=== PATIENT | female | born 1960 | race African-American/Black ===

== ENCOUNTER 2019-01-08 20:40 | Inpatient (IN) | payer MEDICAID ==
[~2019-01-08] VITALS: Ht 175.3 cm; Wt 138.3 kg
[~2019-01-08 20:40] MED LIST: BISA-81 PO; CLON0.1T PO
[2019-01-08] MEDS ORDERED: PANTOPRAZOLE SODIUM 40 MG/VIAL IV NR (23:15)
[2019-01-08 23:17] LABS: CHLORIDE 88 mEq/L (98-107)
[2019-01-08 23:21] LABS: INR 2.3; PROTHROMBIN TIME 22.9 sec (9.1-11.1)
[2019-01-08 23:59] LABS: MEAN CORPUSCULAR HEMOGLOBIN 22.2 pg (28.0-32.0); MEAN CORPUSCULAR VOLUME 79.7 fL (81.0-99.0); MEAN PLATELET VOLUME 8.1 fl (7.4-10.4); PLATELET 293 x1000/uL (130-400); RED BLOOD CELL COUNT 1.37 mill/uL (4.2-5.4); RED CELL DISTRIBUTION WIDTH 20.8 % (11.6-14.6)
[2019-01-09] VITALS (24 sets, daily range): BP systolic 97–118; BP diastolic 36–78
[2019-01-09 00:16] LABS: HEMATOCRIT. 10.9 % (36.0-48.0); HEMOGLOBIN. 3.1 g/dL (12.0-16.0)
[2019-01-09] MEDS ORDERED: DIPHENHYDRAMINE 50MG/ML VIAL IV PRN (11:45)
[2019-01-09 13:21] LABS: NUCLEATED RED BLOOD CELLS 4 /100 WBC; PLATELET ESTIMATE NORMAL
[2019-01-09] MEDS ORDERED: LIDOCAINE HCL/PF 1% 10 MG/ML 5ML VIAL ONE (13:39)
[2019-01-09] MEDS ORDERED: MIDAZOLAM HCL 2 MG/2 ML VIAL ONE (13:39)
[2019-01-09] MEDS ORDERED: PROPOFOL 200MG/20ML VIAL IV ONE ×2 (13:39→13:40)
[2019-01-09] MEDS ORDERED: ALBUTEROL 6.7GM HFA INHALER ORI ONE (14:36)
[2019-01-09] MEDS ORDERED: ALBUTEROL 90MCG/PUFF 17GM INHALER INH ONE (14:42)
[2019-01-09] MEDS ORDERED: KETAMINE HCL 50 MG/ML 10ML ONE (15:07)
[2019-01-09] MEDS ORDERED: ONDANSETRON HCL 4MG/2ML INJ IV PRN (16:15)
[2019-01-09] MEDS ORDERED: IPRATROPIUM/ALBUTEROL 0.5-3(2.5)MG/3ML NEB HHN PRN (16:15)
[2019-01-09] MEDS ORDERED: SORBITOL 70% SOLN 30ML PO NR ×2 (16:45→21:30)
[2019-01-09] MEDS ORDERED: BISACODYL 5MG TABLET PO NR ×2 (16:45→21:30)
[2019-01-09] MEDS ORDERED: METOCLOPRAMIDE HCL 10MG/2ML VIAL IV NR ×2 (16:45→21:30)
[2019-01-09] MEDS: PANTOPRAZOLE SODIUM 40 MG/VIAL IV SCH (17:33)
[2019-01-09] MEDS ORDERED: DEXTROSE 50% WATER 50ML SYRINGE IV PRN (19:15)
[2019-01-09 19:53] LABS: PHOSPHORUS 4.3 mg/dL (2.5-4.9)
[2019-01-09 20:20] LABS: HEMATOCRIT 18.3 % (36.0-48.0); HEMOGLOBIN 5.7 g/dL (12.0-16.0)
[2019-01-09] MEDS: INSULIN LISPRO 100 UNITS/ML SUBCUT SCH (21:00)
[2019-01-09] MEDS: BLOOD SUGAR DIAGNOSTIC STRIP TEST SCH (21:31)
[2019-01-10] VITALS (33 sets, daily range): BP systolic 97–143; BP diastolic 16–88
[2019-01-10] MEDS ORDERED: SORBITOL 70% SOLN 30ML PO NR (01:30)
[2019-01-10] MEDS ORDERED: BISACODYL 5MG TABLET PO NR (01:30)
[2019-01-10] MEDS ORDERED: METOCLOPRAMIDE HCL 10MG/2ML VIAL IV NR (01:30)
[2019-01-10] MEDS: ONDANSETRON HCL 4MG/2ML INJ IV PRN (03:06)
[2019-01-10] MEDS: BLOOD SUGAR DIAGNOSTIC STRIP TEST SCH (06:23)
[2019-01-10] MEDS: INSULIN LISPRO 100 UNITS/ML SUBCUT SCH (07:20)
[2019-01-10] MEDS: PANTOPRAZOLE SODIUM 40 MG/VIAL IV SCH ×2 (08:16→16:28)
[2019-01-10 09:13] LABS: HEMATOCRIT. 21.8 % (36.0-48.0); MEAN CORPUSCULAR HEMOGLOBIN 25.9 pg (28.0-32.0); MEAN CORPUSCULAR VOLUME 82.6 fL (81.0-99.0); PLATELET 213 x1000/uL (130-400); RED BLOOD CELL COUNT 2.64 mill/uL (4.2-5.4); RED CELL DISTRIBUTION WIDTH 17.6 % (11.6-14.6)
[2019-01-10 09:18] LABS: CHLORIDE 96 mEq/L (98-107); HEMOGLOBIN. 6.8 g/dL (12.0-16.0)
[2019-01-10 09:25] LABS: LDL CHOLESTEROL 58 mg/dL (5-100)
[2019-01-10 09:27] LABS: HDL CHOLESTEROL 32 mg/dL (40-59)
[2019-01-10 09:45] LABS: BG BASE EXCESS 7.1 mmol/L (-2.0-2.0); BG CARBOXYHEMOGLOBIN 2.2 % (0.5-1.5); BG HCO3 ACT 34.2 mmol/L (22.0-26.0); BG METHEMOGLOBIN 0.4 % (0.0-1.5); BG OXYGEN SATURATION 97.9 % (92.0-98.5); BG OXYHEMOGLOBIN 95.4 % (94.0-97.0); BG PCO2 67.8 mmHg (35.0-45.0); BG PH 7.321 (7.350-7.450); BG PO2 114.7 mmHg (75.0-100.0); BG SAMPLE SITE RIGHT RADIAL; BG TOTAL HEMOGLOBIN 7.8 g/dL (12.0-18.0); BG VENT MODE MASK - SIMPLE
[2019-01-10] MEDS ORDERED: POTASSIUM CHLORIDE 20MEQ TABLET SR PO SCH (10:00)
[2019-01-10] MEDS ORDERED: METOCLOPRAMIDE HCL 10MG/2ML VIAL IV SCH (10:00)
[2019-01-10] MEDS ORDERED: BISACODYL 5MG TABLET PO SCH (10:00)
[2019-01-10] MEDS ORDERED: IPRATROPIUM/ALBUTEROL 0.5-3(2.5)MG/3ML NEB HHN PRN (10:15)
[2019-01-10] MEDS: FUROSEMIDE 40MG/4ML VIAL IVP SCH (10:43)
[2019-01-10] MEDS: SORBITOL 70% SOLN 30ML PO SCH ×3 (10:43→22:03)
[2019-01-10 12:07] LABS: INR 1.3; PARTIAL THROMBOPLASTIN TIME 29.2 sec (23.4-31.0); PROTHROMBIN TIME 13.4 sec (9.1-11.1)
[2019-01-10 12:12] LABS: HEMATOCRIT 22.2 % (36.0-48.0)
[2019-01-10] MEDS ORDERED: SODIUM BICARBONATE 4% (2.4MEQ) 5ML VIAL IV ONE (14:38)
[2019-01-10] MEDS ORDERED: LIDOCAINE HCL 1% 20ML VIAL (Pyxis) INJ ONE (14:38)
[2019-01-10] MEDS ORDERED: IOHEXOL-300 50 ML BOTTLE IV ONE (14:38)
[2019-01-10] MEDS ORDERED: IOHEXOL-300 100 ML BOTTLE ONE (14:39)
[2019-01-10] MEDS ORDERED: CLINDAMYCIN 600 MG in DEXTROSE 5% WATER 50 ML IV SCH (14:45)
[2019-01-10] MEDS ORDERED: CLINDAMYCIN 600 MG in SODIUM CHLORIDE 0.9% 50 ML IV ONE (14:45)
[2019-01-10] MEDS: METOCLOPRAMIDE HCL 10MG/2ML VIAL IV SCH ×2 (16:29→20:49)
[2019-01-10] MEDS: BISACODYL 5MG TABLET PO SCH ×2 (16:29→20:49)
[2019-01-10 20:44] LABS: CHLORIDE 97 mEq/L (98-107)
[2019-01-10 21:07] LABS: BASOPHILS % 0.2 % (0.0-2.0); HEMOGLOBIN. 8.1 g/dL (12.0-16.0); LYMPHOCYTES % 8.9 % (20.0-50.0); MEAN CORPUSCULAR HEMOGLOBIN 26.1 pg (28.0-32.0); MEAN CORPUSCULAR VOLUME 83.7 fL (81.0-99.0); MEAN PLATELET VOLUME 8.8 fl (7.4-10.4); MONOCYTES % 9.7 % (2.0-8.0); NEUTROPHILS % 81.2 % (40.0-76.0); PLATELET 240 x1000/uL (130-400); RED CELL DISTRIBUTION WIDTH 17.6 % (11.6-14.6)
[2019-01-10] MEDS ORDERED: POTASSIUM CHLORIDE 20MEQ TABLET SR PO NR (22:00)
[2019-01-10] MEDS ORDERED: ACETAMINOPHEN 325MG TABLET PO PRN (22:00)
[2019-01-10] MEDS: MORPHINE SULFATE 4 MG/ML CPJ (NOT FOR IM USE) IV PRN ×2 (22:25→23:32)
[2019-01-10] MEDS ORDERED: KCL 20MEQ/100ML PREMIX 100 ML IV SCH (23:00)
[2019-01-11] VITALS (12 sets, daily range): BP systolic 99–147; BP diastolic 56–91
[2019-01-11] MEDS: IPRATROPIUM/ALBUTEROL 0.5-3(2.5)MG/3ML NEB INH PRN ×3 (00:23→07:53)
[2019-01-11] MEDS ORDERED: POTASSIUM CHLORIDE 20MEQ TABLET SR PO NR (01:45)
[2019-01-11 04:36] LABS: HEMOGLOBIN. 8.8 g/dL (12.0-16.0); MEAN CORPUSCULAR HEMOGLOBIN 26.6 pg (28.0-32.0); MEAN CORPUSCULAR VOLUME 84.7 fL (81.0-99.0); MEAN PLATELET VOLUME 8.3 fl (7.4-10.4); PLATELET 207 x1000/uL (130-400); RED CELL DISTRIBUTION WIDTH 17.7 % (11.6-14.6)
[2019-01-11 04:38] LABS: CHLORIDE 97 mEq/L (98-107)
[2019-01-11 05:07] LABS: INR 1.2; PARTIAL THROMBOPLASTIN TIME 27.3 sec (23.4-31.0); PROTHROMBIN TIME 12.3 sec (9.1-11.1)
[2019-01-11 07:09] LABS: BG BASE EXCESS 6.4 mmol/L (-2.0-2.0); BG CARBOXYHEMOGLOBIN 1.3 % (0.5-1.5); BG DEOXYHEMOGLOBIN 1.7 % (0.0-5.0); BG HCO3 ACT 33.8 mmol/L (22.0-26.0); BG METHEMOGLOBIN 0.1 % (0.0-1.5); BG OXYGEN SATURATION 98.3 % (92.0-98.5); BG OXYHEMOGLOBIN 96.9 % (94.0-97.0); BG PCO2 67.4 mmHg (35.0-45.0); BG PH 7.318 (7.350-7.450); BG PO2 115.7 mmHg (75.0-100.0); BG SAMPLE SITE RIGHT RADIAL; BG TOTAL HEMOGLOBIN 8.7 g/dL (12.0-18.0); BG VENT MODE MASK - CPAP
[2019-01-11] MEDS: FUROSEMIDE 40MG/4ML VIAL IVP SCH ×2 (08:46→17:29)
[2019-01-11] MEDS: PANTOPRAZOLE SODIUM 40 MG/VIAL IV SCH ×2 (08:46→17:29)
[2019-01-11 10:05] LABS: NUCLEATED RED BLOOD CELLS 3 /100 WBC; PLATELET ESTIMATE NORMAL
[2019-01-11 11:07] LABS: T4 FREE 1.16 ng/dL (0.76-1.46)
[2019-01-11] MEDS ORDERED: SIMETHICONE 40 MG/0.6 ML 30ML ONE (11:47)
[2019-01-11] MEDS ORDERED: POTASSIUM CHLORIDE 20MEQ TABLET SR PO SCH (12:15)
[2019-01-11] MEDS ORDERED: LIDOCAINE HCL/PF 1% 10 MG/ML 5ML VIAL ONE (12:43)
[2019-01-11] MEDS ORDERED: PROPOFOL 200MG/20ML VIAL IV ONE ×3 (12:43→14:11)
[2019-01-11] MEDS ORDERED: ETOMIDATE 2MG/ML 10ML VIAL IV ONE (12:48)
[2019-01-11] MEDS: MORPHINE SULFATE 4 MG/ML CPJ (NOT FOR IM USE) IV PRN (15:29)
[2019-01-11 16:32] LABS: *COCAINE SCREEN URINE NEGATIVE (NEGATIVE); METHADONE URINE SCREEN NEGATIVE (NEGATIVE); OPIATES URINE SCREEN PRESUMTIVE POSITIVE (NEGATIVE)
[2019-01-11 16:33] LABS: *AMPHETAMINES SCREEN URINE NEGATIVE (NEGATIVE); *BARBITURATES SCREEN URINE NEGATIVE (NEGATIVE); *BENZODIAZEPINES SCREEN URINE PRESUMTIVE POSITIVE (NEGATIVE); CANNABINOID URINE SCREEN NEGATIVE (NEGATIVE); PHENCYCLIDINE URINE SCREEN NEGATIVE (NEGATIVE)
[2019-01-11 17:03] LABS: CREATINE KINASE MB FRACTION 1.1 ng/mL (0.5-3.6)
[2019-01-11 17:30] LABS: NUCLEATED RED BLOOD CELLS 2 /100 WBC; PLATELET ESTIMATE NORMAL
[2019-01-12] VITALS (11 sets, daily range): BP systolic 112–147; BP diastolic 59–88
[2019-01-12] MEDS: IPRATROPIUM/ALBUTEROL 0.5-3(2.5)MG/3ML NEB INH PRN (00:29)
[2019-01-12] MEDS: MORPHINE SULFATE 4 MG/ML CPJ (NOT FOR IM USE) IV PRN ×4 (06:17→23:36)
[2019-01-12 07:00] LABS: BASOPHILS % 0.3 % (0.0-2.0); EOSINOPHILS % 0.1 % (0.0-5.0); HEMATOCRIT. 25.1 % (36.0-48.0); HEMOGLOBIN. 7.7 g/dL (12.0-16.0); LYMPHOCYTES % 8.3 % (20.0-50.0); MEAN CORPUSCULAR HEMOGLOBIN 26.3 pg (28.0-32.0); MEAN PLATELET VOLUME 8.1 fl (7.4-10.4); MONOCYTES % 10.6 % (2.0-8.0); NEUTROPHILS % 80.7 % (40.0-76.0); PLATELET 183 x1000/uL (130-400); RED BLOOD CELL COUNT 2.92 mill/uL (4.2-5.4); RED CELL DISTRIBUTION WIDTH 18.2 % (11.6-14.6)
[2019-01-12 07:10] LABS: CHLORIDE 97 mEq/L (98-107)
[2019-01-12 07:23] LABS: CREATINE KINASE 54 IU/L (26-192)
[2019-01-12 07:26] LABS: CREATINE KINASE MB FRACTION < 1.0 ng/mL (0.5-3.6)
[2019-01-12] MEDS: PANTOPRAZOLE SODIUM 40 MG/VIAL IV SCH ×2 (08:14→16:51)
[2019-01-12] MEDS: FUROSEMIDE 40MG/4ML VIAL IVP SCH ×2 (08:14→16:51)
[2019-01-12] MEDS ORDERED: DEXTROSE 50% WATER 50ML SYRINGE IV PRN (10:00)
[2019-01-12] MEDS ORDERED: IOHEXOL-350 100 ML BOTTLE ONE (10:41)
[2019-01-12] MEDS ORDERED: BARIUM SULFATE(VOLUMEN) 450 ML ORAL.SUSP ONE (10:41)
[2019-01-12] MEDS: BLOOD SUGAR DIAGNOSTIC STRIP TEST SCH ×3 (11:25→21:29)
[2019-01-12] MEDS ORDERED: POTASSIUM CHLORIDE 20MEQ TABLET SR PO NR (12:00)
[2019-01-12] MEDS: INSULIN LISPRO 100 UNITS/ML SUBCUT SCH ×3 (12:20→21:00)
[2019-01-12] MEDS: NYSTATIN POWDER 15GM TOP SCH ×2 (14:38→16:54)
[2019-01-12 19:16] LABS: HAPTOGLOBIN 119 mg/dL (30-200)
[2019-01-13] VITALS (9 sets, daily range): BP systolic 103–126; BP diastolic 53–80
[2019-01-13] MEDS: BLOOD SUGAR DIAGNOSTIC STRIP TEST SCH ×2 (06:54→11:34)
[2019-01-13] MEDS: FUROSEMIDE 40MG/4ML VIAL IVP SCH (07:01)
[2019-01-13] MEDS: INSULIN LISPRO 100 UNITS/ML SUBCUT SCH ×2 (07:20→11:34)
[2019-01-13 07:58] LABS: HEMATOCRIT. 24.9 % (36.0-48.0); HEMOGLOBIN. 7.7 g/dL (12.0-16.0); MEAN CORPUSCULAR HEMOGLOBIN 26.6 pg (28.0-32.0); MEAN CORPUSCULAR VOLUME 85.9 fL (81.0-99.0); MEAN PLATELET VOLUME 7.9 fl (7.4-10.4); PLATELET 170 x1000/uL (130-400); RED CELL DISTRIBUTION WIDTH 18.7 % (11.6-14.6)
[2019-01-13 08:05] LABS: CHLORIDE 93 mEq/L (98-107)
[2019-01-13] MEDS: ONDANSETRON HCL 4MG/2ML INJ IV PRN (09:19)
[2019-01-13] MEDS: PANTOPRAZOLE SODIUM 40 MG/VIAL IV SCH (09:19)
[2019-01-13] MEDS: NYSTATIN POWDER 15GM TOP SCH ×2 (09:21→13:06)
[2019-01-13] MEDS: MORPHINE SULFATE 4 MG/ML CPJ (NOT FOR IM USE) IV PRN (09:21)
[2019-01-13] MEDS ORDERED: FURO-151 MT (12:36)
[2019-01-13] MEDS ORDERED: PANT40TA4 MT (12:36)
[2019-01-13 18:04] LABS: PLATELET ESTIMATE NORMAL
== END 2019-01-13 16:15 | disposition home or self-care (01) | DRG 241 ==
LOC: ER 20:40 → 3WST 01-09 01:03 → ENRESERV 01-09 07:03
PROVIDERS: ADMIT Internal Medicine; ATTEND Internal Medicine
PROC: 30233K1 Transfusion of Nonautologous Frozen Plasma into Peripheral Vein, Percutaneous Approach (ICD-10-PCS; 2019-01-09)
PROC: 30233N1 Transfusion of Nonautologous Red Blood Cells into Peripheral Vein, Percutaneous Approach (ICD-10-PCS; 2019-01-09)
PROC: 0DJ08ZZ Inspection of Upper Intestinal Tract, Via Natural or Artificial Opening Endoscopic (ICD-10-PCS; 2019-01-09)
PROC: 06H03DZ Insertion of Intraluminal Device into Inferior Vena Cava, Percutaneous Approach (ICD-10-PCS; 2019-01-10)
PROC: B5191ZZ Fluoroscopy of Inferior Vena Cava using Low Osmolar Contrast (ICD-10-PCS; 2019-01-10)
PROC: 5A09357 Assistance with Respiratory Ventilation, Less than 24 Consecutive Hours, Continuous Positive Airway Pressure (ICD-10-PCS; 2019-01-11)
PROC: 0DBM8ZX Excision of Descending Colon, Via Natural or Artificial Opening Endoscopic, Diagnostic (ICD-10-PCS; principal; 2019-01-12)
PROC: 0DBP8ZX Excision of Rectum, Via Natural or Artificial Opening Endoscopic, Diagnostic (ICD-10-PCS; 2019-01-12)
PROC: 5A09357 Assistance with Respiratory Ventilation, Less than 24 Consecutive Hours, Continuous Positive Airway Pressure (ICD-10-PCS; 2019-01-12)
DX: K29.71 Gastritis, unspecified, with bleeding (principal); J96.22 Acute and chronic respiratory failure with hypercapnia; I50.41 Acute combined systolic (congestive) and diastolic (congestive) heart failure; L89.300 Pressure ulcer of unspecified buttock, unstageable; I27.20 Pulmonary hypertension, unspecified; E87.2 Acidosis; E66.2 Morbid (severe) obesity with alveolar hypoventilation; E87.8 Other disorders of electrolyte and fluid balance, not elsewhere classified; Z68.42 Body mass index [BMI] 45.0-49.9, adult; I11.0 Hypertensive heart disease with heart failure; E87.1 Hypo-osmolality and hyponatremia; I48.91 Unspecified atrial fibrillation; D50.0 Iron deficiency anemia secondary to blood loss (chronic); D12.4 Benign neoplasm of descending colon; J45.909 Unspecified asthma, uncomplicated; K44.9 Diaphragmatic hernia without obstruction or gangrene; K62.1 Rectal polyp; D50.9 Iron deficiency anemia, unspecified; R79.1 Abnormal coagulation profile; K29.60 Other gastritis without bleeding; T45.515A Adverse effect of anticoagulants, initial encounter; Z74.01 Bed confinement status; Z79.01 Long term (current) use of anticoagulants; Z86.718 Personal history of other venous thrombosis and embolism; Z87.891 Personal history of nicotine dependence; Z99.81 Dependence on supplemental oxygen; Z88.9 Allergy status to unspecified drugs, medicaments and biological substances; Z88.0 Allergy status to penicillin
CPT/HCPCS: 36415; 36600; 37191; 71045; 74177; 80048; 80061; 80076; 80305; 82248; 82270; 82375; 82550; 82553; 82805; 82962; 83010; 83036; 83540; 83550; 83615; 83735; 83880; 84100; 84132; 84134; 84439; 84443; 84484; 85014; 85018; 85049; 85379; 85384; 86850; 86900; 86920; 86927; 88305; 93005; 93306; 93970; 94640; 94660; 96374; 97163; 99285; C1769; C1880; C1893; C9113; J1644; J1940; J2250; J2270; J2405; J2704; J2765; J3480; J3490; J7040; J7050; J7611; J7620; P9016; P9017; Q9967

== ENCOUNTER 2019-01-27 07:14 | Inpatient (IN) | payer MEDICAID ==
[~2019-01-27] VITALS: Ht 175.3 cm; Wt 154.2 kg
[~2019-01-27 07:14] MED LIST changes: -CLON0.1T PO; +FURO-151 MT; +PANT40TA4 MT
[2019-01-27] MEDS ORDERED: MORPHINE SULFATE 4 MG/ML CPJ (NOT FOR IM USE) IV STA (08:13)
[2019-01-27] MEDS ORDERED: ONDANSETRON HCL 4MG/2ML INJ IV STA (08:13)
[2019-01-27] MEDS ORDERED: NITROGLYCERIN OINT 1GM/INCH UDPKT TD ONE (08:15)
[2019-01-27] MEDS ORDERED: CLOPIDOGREL 75MG TABLET PO ONE (08:15)
[2019-01-27] MEDS ORDERED: FUROSEMIDE 40MG/4ML VIAL IV ONE (08:15)
[2019-01-27] MEDS ORDERED: METHYLPREDNISOLONE SOD SUCC 125 MG/2 ML VIAL IV STA (08:16)
[2019-01-27] MEDS ORDERED: ALBUTEROL (0.083%) 2.5MG/3ML NEB HHN STA (08:16)
[2019-01-27] MEDS ORDERED: IPRATROPIUM BROMIDE (0.02%) 0.5MG/2.5ML NEB HHN STA (08:16)
[2019-01-27 09:59] LABS: HEMATOCRIT. 26.2 % (36.0-48.0); HEMOGLOBIN. 7.6 g/dL (12.0-16.0); MEAN CORPUSCULAR HEMOGLOBIN 24.6 pg (28.0-32.0); PLATELET 224 x1000/uL (130-400); RED BLOOD CELL COUNT 3.08 mill/uL (4.2-5.4)
[2019-01-27 10:02] LABS: CHLORIDE 102 mEq/L (98-107); INR 1.2; PARTIAL THROMBOPLASTIN TIME 28.1 sec (23.4-31.0); PROTHROMBIN TIME 11.8 sec (9.1-11.1)
[2019-01-27 10:16] LABS: NUCLEATED RED BLOOD CELLS 1 /100 WBC
[2019-01-27 10:17] LABS: PLATELET ESTIMATE NORMAL
[2019-01-27] MEDS ORDERED: GUAIFENESIN-DM 200MG-20MG/10ML UDC PO PRN (13:45)
[2019-01-27] MEDS ORDERED: HYDROCODONE/ACETAMINOPHEN 5/325MG TABLET PO PRN (13:45)
[2019-01-27] MEDS ORDERED: ONDANSETRON HCL 4MG/2ML INJ IV PRN (13:45)
[2019-01-27] MEDS ORDERED: IPRATROPIUM/ALBUTEROL 0.5-3(2.5)MG/3ML NEB HHN PRN (13:45)
[2019-01-27 18:10] VITALS: BP 142/61
[2019-01-27 20:00] VITALS: BP 130/74
[2019-01-27 20:24] VITALS: BP 130/74
[2019-01-27] MEDS: AZITHROMYCIN 500 MG TABLET PO SCH (20:49)
[2019-01-27] MEDS: GUAIFENESIN 600MG ER TABLET PO SCH (20:49)
[2019-01-27] MEDS: FUROSEMIDE 40MG/4ML VIAL IVP SCH (20:49)
[2019-01-27] MEDS ORDERED: INFLUENZA VIRUS VACCINE(AFLURIA) 0.5ML SYR IM ONE (21:00)
[2019-01-27] MEDS ORDERED: PNEUMOCOCCAL 23-VAL P-SAC VAC 0.5 ML IM ONE (21:00)
[2019-01-27] MEDS: BUDESONIDE 0.5MG/2ML NEB HHN SCH (21:53)
[2019-01-27] MEDS: IPRATROPIUM/ALBUTEROL 0.5-3(2.5)MG/3ML NEB HHN SCH (21:53)
[2019-01-28 00:09] VITALS: BP 139/64
[2019-01-28] MEDS: IPRATROPIUM/ALBUTEROL 0.5-3(2.5)MG/3ML NEB HHN SCH ×6 (01:37→21:06)
[2019-01-28 04:00] VITALS: BP 125/47
[2019-01-28] MEDS ORDERED: FURO-152 PO (04:10)
[2019-01-28] MEDS ORDERED: POLY17PO3 PO (04:10)
[2019-01-28] MEDS ORDERED: [UNRECOGNIZED DRUG - CODE] PO (04:10)
[2019-01-28] MEDS ORDERED: HYDR-4009 PO (04:10)
[2019-01-28] MEDS ORDERED: DIAZ10TA PO (04:10)
[2019-01-28] MEDS: FUROSEMIDE 40MG/4ML VIAL IVP SCH ×2 (06:19→16:36)
[2019-01-28 06:26] LABS: HEMATOCRIT. 24.8 % (36.0-48.0); HEMOGLOBIN. 7.5 g/dL (12.0-16.0); MEAN CORPUSCULAR HEMOGLOBIN 25.5 pg (28.0-32.0); MEAN CORPUSCULAR VOLUME 84.8 fL (81.0-99.0); PLATELET 219 x1000/uL (130-400); RED BLOOD CELL COUNT 2.93 mill/uL (4.2-5.4); RED CELL DISTRIBUTION WIDTH 20.1 % (11.6-14.6)
[2019-01-28 06:45] LABS: CHLORIDE 99 mEq/L (98-107)
[2019-01-28 08:00] VITALS: BP 127/60
[2019-01-28 08:07] LABS: PLATELET ESTIMATE NORMAL
[2019-01-28] MEDS: AZITHROMYCIN 500 MG TABLET PO SCH (08:46)
[2019-01-28] MEDS: GUAIFENESIN 600MG ER TABLET PO SCH ×2 (08:46→21:56)
[2019-01-28] MEDS: BUDESONIDE 0.5MG/2ML NEB HHN SCH ×2 (09:11→21:06)
[2019-01-28 12:00] VITALS: BP 135/50
[2019-01-28] MEDS ORDERED: SODIUM POLYSTYRENE SULFONATE 15 G/60 ML BOT PO NR (12:45)
[2019-01-28] MEDS ORDERED: ACETAMINOPHEN WITH CODEINE 300/30MG TABLET PO PRN (13:30)
[2019-01-28] MEDS: MORPHINE SULFATE 4 MG/ML CPJ (NOT FOR IM USE) IV PRN ×2 (14:45→23:06)
[2019-01-28] MEDS: NYSTATIN POWDER 15GM TOP SCH ×2 (14:45→16:36)
[2019-01-28] MEDS ORDERED: BENZONATATE 100MG CAPSULE PO PRN (15:15)
[2019-01-28] MEDS ORDERED: LEVOFLOXACIN 250MG TABLET PO SCH (15:30)
[2019-01-28 16:00] VITALS: BP 107/67
[2019-01-28] MEDS: LEVOFLOXACIN 250MG TABLET PO SCH (16:36)
[2019-01-28] MEDS: OSELTAMIVIR 75MG CAPSULE PO SCH (16:45)
[2019-01-28 20:00] VITALS: BP 118/57
[2019-01-28] MEDS: FLUTICASONE PROPIONATE 50MCG/SPRAY BOTTLE BOTHNSTRLS SCH (21:56)
[2019-01-29] VITALS: BP 125/56
[2019-01-29] MEDS: IPRATROPIUM/ALBUTEROL 0.5-3(2.5)MG/3ML NEB HHN SCH ×5 (00:43→21:00)
[2019-01-29 04:00] VITALS: BP 115/67
[2019-01-29] MEDS: FUROSEMIDE 40MG/4ML VIAL IVP SCH ×2 (06:28→08:43)
[2019-01-29] MEDS: OSELTAMIVIR 75MG CAPSULE PO SCH ×2 (06:29→18:54)
[2019-01-29 08:00] VITALS: BP 112/34
[2019-01-29 08:10] LABS: HEMATOCRIT. 24.7 % (36.0-48.0); HEMOGLOBIN. 7.4 g/dL (12.0-16.0); MEAN CORPUSCULAR HEMOGLOBIN 24.9 pg (28.0-32.0); MEAN CORPUSCULAR VOLUME 83.2 fL (81.0-99.0); MEAN PLATELET VOLUME 8.1 fl (7.4-10.4); PLATELET 215 x1000/uL (130-400); RED BLOOD CELL COUNT 2.97 mill/uL (4.2-5.4)
[2019-01-29] MEDS: BUDESONIDE 0.5MG/2ML NEB HHN SCH ×2 (08:15→21:00)
[2019-01-29 08:19] LABS: CHLORIDE 95 mEq/L (98-107)
[2019-01-29] MEDS: AZITHROMYCIN 500 MG TABLET PO SCH (08:43)
[2019-01-29] MEDS: MORPHINE SULFATE 4 MG/ML CPJ (NOT FOR IM USE) IV PRN ×3 (08:43→18:50)
[2019-01-29] MEDS: GUAIFENESIN 600MG ER TABLET PO SCH ×2 (08:43→21:25)
[2019-01-29] MEDS: FLUTICASONE PROPIONATE 50MCG/SPRAY BOTTLE BOTHNSTRLS SCH ×2 (09:00→21:25)
[2019-01-29] MEDS: NYSTATIN POWDER 15GM TOP SCH ×3 (09:00→17:04)
[2019-01-29 10:54] LABS: NUCLEATED RED BLOOD CELLS 2 /100 WBC
[2019-01-29 10:55] LABS: PLATELET ESTIMATE NORMAL
[2019-01-29 20:39] VITALS: BP 116/51
[2019-01-29] MEDS: BACLOFEN 10MG TABLET PO SCH (21:25)
[2019-01-30] VITALS (7 sets, daily range): BP systolic 90–134; BP diastolic 50–66
[2019-01-30] MEDS: IPRATROPIUM/ALBUTEROL 0.5-3(2.5)MG/3ML NEB HHN SCH ×6 (00:59→20:40)
[2019-01-30 06:28] LABS: HEMATOCRIT. 23.6 % (36.0-48.0); HEMOGLOBIN. 7.1 g/dL (12.0-16.0); MEAN CORPUSCULAR HEMOGLOBIN 24.9 pg (28.0-32.0); MEAN CORPUSCULAR VOLUME 82.6 fL (81.0-99.0); MEAN PLATELET VOLUME 7.9 fl (7.4-10.4); PLATELET 186 x1000/uL (130-400); RED BLOOD CELL COUNT 2.86 mill/uL (4.2-5.4); RED CELL DISTRIBUTION WIDTH 19.7 % (11.6-14.6)
[2019-01-30 06:30] LABS: CHLORIDE 96 mEq/L (98-107)
[2019-01-30] MEDS: MORPHINE SULFATE 4 MG/ML CPJ (NOT FOR IM USE) IV PRN ×4 (06:35→21:55)
[2019-01-30] MEDS: FUROSEMIDE 40MG/4ML VIAL IVP SCH ×2 (06:35→16:53)
[2019-01-30] MEDS: OSELTAMIVIR 75MG CAPSULE PO SCH (06:36)
[2019-01-30] MEDS: NYSTATIN POWDER 15GM TOP SCH ×3 (08:49→19:00)
[2019-01-30] MEDS: AZITHROMYCIN 500 MG TABLET PO SCH (08:49)
[2019-01-30] MEDS: GUAIFENESIN 600MG ER TABLET PO SCH ×2 (08:49→21:35)
[2019-01-30] MEDS: FLUTICASONE PROPIONATE 50MCG/SPRAY BOTTLE BOTHNSTRLS SCH ×2 (08:49→21:36)
[2019-01-30] MEDS: ACETAMINOPHEN 325MG TABLET PO PRN ×2 (08:58→16:39)
[2019-01-30 14:11] LABS: PLATELET ESTIMATE NORMAL
[2019-01-30] MEDS: LEVOFLOXACIN 250MG TABLET PO SCH (16:38)
[2019-01-30] MEDS: BUDESONIDE 0.5MG/2ML NEB HHN SCH (20:40)
[2019-01-30] MEDS: BACLOFEN 10MG TABLET PO SCH (21:35)
[2019-01-31] VITALS (10 sets, daily range): BP systolic 90–131; BP diastolic 39–61
[2019-01-31] MEDS: MORPHINE SULFATE 4 MG/ML CPJ (NOT FOR IM USE) IV PRN ×4 (02:29→18:36)
[2019-01-31] MEDS: IPRATROPIUM/ALBUTEROL 0.5-3(2.5)MG/3ML NEB HHN SCH ×5 (03:04→21:33)
[2019-01-31] MEDS: FUROSEMIDE 40MG/4ML VIAL IVP SCH ×2 (06:47→18:35)
[2019-01-31 07:02] LABS: HEMATOCRIT. 25.6 % (36.0-48.0); HEMOGLOBIN. 7.9 g/dL (12.0-16.0); MEAN CORPUSCULAR HEMOGLOBIN 25.3 pg (28.0-32.0); MEAN CORPUSCULAR VOLUME 82.3 fL (81.0-99.0); MEAN PLATELET VOLUME 8.1 fl (7.4-10.4); PLATELET 171 x1000/uL (130-400); RED BLOOD CELL COUNT 3.11 mill/uL (4.2-5.4); RED CELL DISTRIBUTION WIDTH 19.8 % (11.6-14.6)
[2019-01-31 07:07] LABS: CHLORIDE 96 mEq/L (98-107)
[2019-01-31] MEDS: BUDESONIDE 0.5MG/2ML NEB HHN SCH ×2 (08:33→21:31)
[2019-01-31] MEDS: GUAIFENESIN 600MG ER TABLET PO SCH ×2 (08:53→21:19)
[2019-01-31] MEDS: AZITHROMYCIN 500 MG TABLET PO SCH (08:53)
[2019-01-31] MEDS: FLUTICASONE PROPIONATE 50MCG/SPRAY BOTTLE BOTHNSTRLS SCH (08:56)
[2019-01-31] MEDS: NYSTATIN POWDER 15GM TOP SCH ×3 (09:00→17:00)
[2019-01-31] MEDS: BACLOFEN 10MG TABLET PO SCH (21:19)
[2019-01-31] MEDS: POLYMYXIN B SULFATE/TMP 10ML BOTTLE BOTHEYE SCH (21:20)
[2019-02-01] VITALS (7 sets, daily range): BP systolic 114–132; BP diastolic 45–59
[2019-02-01] MEDS: IPRATROPIUM/ALBUTEROL 0.5-3(2.5)MG/3ML NEB HHN SCH ×6 (00:36→20:42)
[2019-02-01] MEDS: MORPHINE SULFATE 4 MG/ML CPJ (NOT FOR IM USE) IV PRN ×4 (02:00→17:35)
[2019-02-01 03:45] LABS: PLATELET ESTIMATE NORMAL
[2019-02-01 06:33] LABS: HEMATOCRIT. 25.6 % (36.0-48.0); HEMOGLOBIN. 7.7 g/dL (12.0-16.0); MEAN CORPUSCULAR HEMOGLOBIN 24.8 pg (28.0-32.0); MEAN CORPUSCULAR VOLUME 82.7 fL (81.0-99.0); MEAN PLATELET VOLUME 8.2 fl (7.4-10.4); PLATELET 173 x1000/uL (130-400); RED BLOOD CELL COUNT 3.09 mill/uL (4.2-5.4); RED CELL DISTRIBUTION WIDTH 20.1 % (11.6-14.6)
[2019-02-01 06:36] LABS: CHLORIDE 96 mEq/L (98-107)
[2019-02-01] MEDS: FUROSEMIDE 40MG/4ML VIAL IVP SCH ×2 (06:56→17:35)
[2019-02-01] MEDS: AZITHROMYCIN 500 MG TABLET PO SCH (08:36)
[2019-02-01] MEDS: GUAIFENESIN 600MG ER TABLET PO SCH ×2 (08:36→21:31)
[2019-02-01] MEDS: NYSTATIN POWDER 15GM TOP SCH ×3 (08:37→17:00)
[2019-02-01] MEDS: BUDESONIDE 0.5MG/2ML NEB HHN SCH ×2 (09:01→20:42)
[2019-02-01 10:51] LABS: PLATELET ESTIMATE NORMAL
[2019-02-01] MEDS: POLYMYXIN B SULFATE/TMP 10ML BOTTLE BOTHEYE SCH (15:11)
[2019-02-01] MEDS: LEVOFLOXACIN 250MG TABLET PO SCH (15:11)
[2019-02-01] MEDS: BACLOFEN 10MG TABLET PO SCH (21:31)
== END 2019-02-01 22:00 | disposition home or self-care (01) | DRG 52 ==
LOC: ER 07:14 → 6WST 11:48 → EDBEDREQ 11:50 → EDBEDREQTM 11:50 → ENRESERV 16:13
PROVIDERS: ADMIT Internal Medicine; ATTEND Internal Medicine
PROC: 30233N1 Transfusion of Nonautologous Red Blood Cells into Peripheral Vein, Percutaneous Approach (ICD-10-PCS; principal; 2019-01-30)
DX: G93.41 Metabolic encephalopathy (principal); J96.20 Acute and chronic respiratory failure, unspecified whether with hypoxia or hypercapnia; I50.33 Acute on chronic diastolic (congestive) heart failure; L89.319 Pressure ulcer of right buttock, unspecified stage; E46 Unspecified protein-calorie malnutrition; I27.20 Pulmonary hypertension, unspecified; I11.0 Hypertensive heart disease with heart failure; E66.01 Morbid (severe) obesity due to excess calories; I48.91 Unspecified atrial fibrillation; G82.50 Quadriplegia, unspecified; J44.1 Chronic obstructive pulmonary disease with (acute) exacerbation; R65.10 Systemic inflammatory response syndrome (SIRS) of non-infectious origin without acute organ dysfunction; D64.9 Anemia, unspecified; G89.4 Chronic pain syndrome; I25.10 Atherosclerotic heart disease of native coronary artery without angina pectoris; I87.8 Other specified disorders of veins; J00 Acute nasopharyngitis [common cold]; H01.009 Unspecified blepharitis unspecified eye, unspecified eyelid; M47.9 Spondylosis, unspecified; Z86.718 Personal history of other venous thrombosis and embolism; Z74.01 Bed confinement status; Z99.81 Dependence on supplemental oxygen; Z98.1 Arthrodesis status; Z88.0 Allergy status to penicillin; Z88.1 Allergy status to other antibiotic agents; Z88.6 Allergy status to analgesic agent; Z68.43 Body mass index [BMI] 50.0-59.9, adult; Z87.891 Personal history of nicotine dependence; Z98.61 Coronary angioplasty status
CPT/HCPCS: 36415; 71045; 80048; 82140; 83880; 84134; 84484; 86850; 86900; 86920; 87070; 87077; 87804; 90686; 90732; 93005; 93970; 94640; 94644; 96374; 96375; 97162; 97167; 99285; J1940; J2270; J2405; J2930; J7050; J7611; J7620; J7626; P9016

== ENCOUNTER 2019-02-08 20:05 | Inpatient (IN) | payer MEDICAID ==
[~2019-02-08] VITALS: Ht 193 cm; Wt 202.3 kg
[~2019-02-08 20:05] MED LIST changes: -BISA-81 PO; +DIAZ10TA PO; -FURO-151 MT; +FURO-152 PO; +HYDR-4009 PO; -PANT40TA4 MT; +POLY17PO3 PO; +[UNRECOGNIZED DRUG - CODE] PO
[2019-02-08] MEDS ORDERED: MORPHINE SULFATE 4 MG/ML CPJ (NOT FOR IM USE) IV STA (22:03)
[2019-02-08] MEDS ORDERED: ONDANSETRON HCL 4MG/2ML INJ IV STA (22:03)
[2019-02-08] MEDS ORDERED: SODIUM CHLORIDE 0.9% 1,000 ML IV ONE (22:03)
[2019-02-08 22:52] LABS: HEMATOCRIT. 30.2 % (36.0-48.0); HEMOGLOBIN. 9.1 g/dL (12.0-16.0); MEAN CORPUSCULAR HEMOGLOBIN 25.2 pg (28.0-32.0); MEAN CORPUSCULAR VOLUME 83.8 fL (81.0-99.0); MEAN PLATELET VOLUME 8.2 fl (7.4-10.4); PLATELET 219 x1000/uL (130-400); RED BLOOD CELL COUNT 3.61 mill/uL (4.2-5.4); RED CELL DISTRIBUTION WIDTH 20.1 % (11.6-14.6)
[2019-02-08 22:54] LABS: INR 1.3; PROTHROMBIN TIME 12.6 sec (9.1-11.1)
[2019-02-08 23:03] LABS: CHLORIDE 95 mEq/L (98-107)
[2019-02-08 23:27] LABS: PLATELET ESTIMATE NORMAL
[2019-02-08] MEDS ORDERED: FUROSEMIDE 20MG/2ML VIAL IVP ONE (23:45)
[2019-02-09] MEDS ORDERED: HYDROCODONE/ACETAMINOPHEN 5/325MG TABLET PO ONE (08:45)
[2019-02-09] MEDS: ONDANSETRON HCL 4MG/2ML INJ IV PRN ×2 (10:13→22:13)
[2019-02-09] MEDS: MORPHINE SULFATE 4 MG/ML CPJ (NOT FOR IM USE) IV PRN ×3 (10:13→22:08)
[2019-02-09] MEDS: FUROSEMIDE 100MG/10ML VIAL IVP SCH ×2 (15:22→20:00)
[2019-02-09] MEDS: AMLODIPINE 5MG TABLET PO SCH ×2 (15:22→21:56)
[2019-02-09 15:30] VITALS: BP 136/58
[2019-02-09 16:00] VITALS: BP 132/57
[2019-02-09 20:36] VITALS: BP 126/57
[2019-02-09] MEDS: BUDESONIDE 0.5MG/2ML NEB HHN SCH (21:46)
[2019-02-09] MEDS: IPRATROPIUM/ALBUTEROL 0.5-3(2.5)MG/3ML NEB HHN PRN (21:46)
[2019-02-10] VITALS (7 sets, daily range): BP systolic 110–164; BP diastolic 53–74
[2019-02-10] MEDS: IPRATROPIUM/ALBUTEROL 0.5-3(2.5)MG/3ML NEB HHN PRN ×4 (03:54→20:24)
[2019-02-10] MEDS: MORPHINE SULFATE 4 MG/ML CPJ (NOT FOR IM USE) IV PRN ×4 (03:55→18:46)
[2019-02-10] MEDS: ONDANSETRON HCL 4MG/2ML INJ IV PRN ×2 (04:07→15:57)
[2019-02-10 05:44] LABS: HEMATOCRIT. 27.4 % (36.0-48.0); HEMOGLOBIN. 8.1 g/dL (12.0-16.0); MEAN CORPUSCULAR HEMOGLOBIN 24.8 pg (28.0-32.0); MEAN PLATELET VOLUME 8.5 fl (7.4-10.4); PLATELET 230 x1000/uL (130-400); RED BLOOD CELL COUNT 3.26 mill/uL (4.2-5.4)
[2019-02-10] MEDS: FUROSEMIDE 100MG/10ML VIAL IVP SCH ×2 (06:13→18:48)
[2019-02-10 06:26] LABS: CHLORIDE 96 mEq/L (98-107)
[2019-02-10] MEDS: BUDESONIDE 0.5MG/2ML NEB HHN SCH ×2 (08:07→20:24)
[2019-02-10] MEDS: AMLODIPINE 5MG TABLET PO SCH (09:46)
[2019-02-10 11:24] LABS: HEPATITIS B SURFACE ANTIGEN NEGATIVE
[2019-02-10 11:53] LABS: HEPATITIS A AB IGM NEGATIVE (NEGATIVE)
[2019-02-10 14:07] LABS: PLATELET ESTIMATE NORMAL
[2019-02-10] MEDS: DILTIAZEM HCL 90MG TABLET PO SCH (22:24)
[2019-02-11] VITALS: BP 142/58
[2019-02-11] MEDS: IPRATROPIUM/ALBUTEROL 0.5-3(2.5)MG/3ML NEB HHN PRN ×4 (00:09→19:14)
[2019-02-11] MEDS: MORPHINE SULFATE 4 MG/ML CPJ (NOT FOR IM USE) IV PRN (00:42)
[2019-02-11 04:00] VITALS: BP 158/85
[2019-02-11] MEDS: DILTIAZEM HCL 90MG TABLET PO SCH ×4 (06:20→23:40)
[2019-02-11 06:22] LABS: CHLORIDE 95 mEq/L (98-107)
[2019-02-11 06:34] LABS: HEMATOCRIT. 28.6 % (36.0-48.0); HEMOGLOBIN. 8.3 g/dL (12.0-16.0); MEAN CORPUSCULAR HEMOGLOBIN 24.3 pg (28.0-32.0); MEAN CORPUSCULAR VOLUME 83.3 fL (81.0-99.0); MEAN PLATELET VOLUME 8.4 fl (7.4-10.4); PLATELET 247 x1000/uL (130-400); RED BLOOD CELL COUNT 3.44 mill/uL (4.2-5.4); RED CELL DISTRIBUTION WIDTH 21.4 % (11.6-14.6)
[2019-02-11] MEDS: FUROSEMIDE 100MG/10ML VIAL IVP SCH ×2 (07:20→17:13)
[2019-02-11 08:00] VITALS: BP 127/60
[2019-02-11] MEDS: BUDESONIDE 0.5MG/2ML NEB HHN SCH ×3 (08:20→19:14)
[2019-02-11] MEDS: METOLAZONE 5MG TABLET PO SCH (08:56)
[2019-02-11 11:48] VITALS: BP 143/72
[2019-02-11] MEDS: ONDANSETRON HCL 4MG/2ML INJ IV PRN ×2 (11:51→23:49)
[2019-02-11] MEDS: ACETAMINOPHEN WITH CODEINE 300/30MG TABLET PO PRN ×2 (11:51→23:39)
[2019-02-11 13:22] LABS: PLATELET ESTIMATE NORMAL
[2019-02-11 16:00] VITALS: BP 156/71
[2019-02-11] MEDS: METOCLOPRAMIDE HCL 10MG/2ML VIAL IV SCH (17:13)
[2019-02-11 20:00] VITALS: BP 144/77
[2019-02-12] VITALS: BP 147/74
[2019-02-12] MEDS: IPRATROPIUM/ALBUTEROL 0.5-3(2.5)MG/3ML NEB HHN PRN ×4 (00:02→22:41)
[2019-02-12 04:00] VITALS: BP 146/76
[2019-02-12] MEDS: METOCLOPRAMIDE HCL 10MG/2ML VIAL IV SCH ×2 (06:00)
[2019-02-12] MEDS: DILTIAZEM HCL 90MG TABLET PO SCH (06:00)
[2019-02-12 07:21] LABS: HEMATOCRIT. 29.4 % (36.0-48.0); HEMOGLOBIN. 8.9 g/dL (12.0-16.0); MEAN PLATELET VOLUME 8.3 fl (7.4-10.4); PLATELET 241 x1000/uL (130-400); RED BLOOD CELL COUNT 3.54 mill/uL (4.2-5.4); RED CELL DISTRIBUTION WIDTH 21.6 % (11.6-14.6)
[2019-02-12 08:00] VITALS: BP 119/78
[2019-02-12] MEDS: BUDESONIDE 0.5MG/2ML NEB HHN SCH ×2 (08:03→19:56)
[2019-02-12] MEDS: FUROSEMIDE 100MG/10ML VIAL IVP SCH (08:59)
[2019-02-12] MEDS: METOLAZONE 5MG TABLET PO SCH (08:59)
[2019-02-12] MEDS: ONDANSETRON HCL 4MG/2ML INJ IV PRN ×2 (09:04→23:32)
[2019-02-12 10:29] LABS: CHLORIDE 95 mEq/L (98-107)
[2019-02-12 12:00] VITALS: BP 132/62
[2019-02-12] MEDS ORDERED: HYDRALAZINE 20MG/ML VIAL IV PRN (13:15)
[2019-02-12] MEDS: MORPHINE SULFATE 4 MG/ML CPJ (NOT FOR IM USE) IV PRN ×2 (14:09→21:37)
[2019-02-12 16:00] VITALS: BP 132/68
[2019-02-12] MEDS ORDERED: DEXT 5%/0.45% NACL 500ML 500 ML IV ONE (16:30)
[2019-02-12] MEDS: IPRATROPIUM/ALBUTEROL 0.5-3(2.5)MG/3ML NEB HHN SCH (19:57)
[2019-02-12 20:00] VITALS: BP 139/66
[2019-02-12 20:28] LABS: PLATELET ESTIMATE NORMAL
[2019-02-13 00:14] VITALS: BP 143/64
[2019-02-13] MEDS: IPRATROPIUM/ALBUTEROL 0.5-3(2.5)MG/3ML NEB HHN SCH ×3 (02:06→20:01)
[2019-02-13 04:00] VITALS: BP 125/60
[2019-02-13] MEDS: FUROSEMIDE 40MG/4ML VIAL IVP SCH ×2 (06:34→17:26)
[2019-02-13 06:57] LABS: CHLORIDE 95 mEq/L (98-107)
[2019-02-13 07:19] LABS: HEMOGLOBIN. 8.5 g/dL (12.0-16.0); MEAN CORPUSCULAR HEMOGLOBIN 25.3 pg (28.0-32.0); MEAN CORPUSCULAR VOLUME 83.2 fL (81.0-99.0); MEAN PLATELET VOLUME 8.1 fl (7.4-10.4); PLATELET 256 x1000/uL (130-400); RED BLOOD CELL COUNT 3.37 mill/uL (4.2-5.4); RED CELL DISTRIBUTION WIDTH 22.1 % (11.6-14.6)
[2019-02-13 08:00] VITALS: BP 107/59
[2019-02-13] MEDS: METOLAZONE 5MG TABLET PO SCH (09:00)
[2019-02-13] MEDS: BUDESONIDE 0.5MG/2ML NEB HHN SCH ×2 (09:36→20:01)
[2019-02-13 10:49] LABS: PLATELET ESTIMATE NORMAL
[2019-02-13] MEDS ORDERED: SODIUM CHLORIDE 3% FOR INH 4ML UD NEB INH NR (11:00)
[2019-02-13 12:00] VITALS: BP 116/67
[2019-02-13] MEDS: MORPHINE SULFATE 4 MG/ML CPJ (NOT FOR IM USE) IV PRN ×2 (13:10→21:46)
[2019-02-13] MEDS ORDERED: DIATR MEGLU/DIATRIZOATE SOLN 120ML ONE (13:43)
[2019-02-13] MEDS ORDERED: CEFTRIAXONE 1 G PREMIX 50 ML IV SCH (14:45)
[2019-02-13] MEDS ORDERED: AZITHROMYCIN 500 MG in DEXT 5% WATER 250 ML IV SCH (17:00)
[2019-02-13 17:09] LABS: INR 1.5; PROTHROMBIN TIME 15.1 sec (9.1-11.1)
[2019-02-13 18:20] VITALS: BP 104/53
[2019-02-13 20:00] VITALS: BP 121/62
[2019-02-13] MEDS: LEVOFLOXACIN 500MG PREMIX 100 ML IV SCH (21:44)
[2019-02-13] MEDS: DEXT 5%/0.45% NACL 1000ML 1,000 ML IV SCH (21:44)
[2019-02-14] VITALS (8 sets, daily range): BP systolic 100–132; BP diastolic 45–86
[2019-02-14] MEDS: MORPHINE SULFATE 4 MG/ML CPJ (NOT FOR IM USE) IV PRN ×5 (01:47→21:07)
[2019-02-14] MEDS: IPRATROPIUM/ALBUTEROL 0.5-3(2.5)MG/3ML NEB HHN SCH ×4 (01:55→18:26)
[2019-02-14] MEDS: FUROSEMIDE 40MG/4ML VIAL IVP SCH ×2 (06:15→18:09)
[2019-02-14 07:12] LABS: CHLORIDE 94 mEq/L (98-107)
[2019-02-14 07:15] LABS: HEMOGLOBIN. 8.4 g/dL (12.0-16.0); MEAN CORPUSCULAR HEMOGLOBIN 24.9 pg (28.0-32.0); MEAN CORPUSCULAR VOLUME 83.2 fL (81.0-99.0); MEAN PLATELET VOLUME 8.1 fl (7.4-10.4); PLATELET 236 x1000/uL (130-400); RED BLOOD CELL COUNT 3.36 mill/uL (4.2-5.4); RED CELL DISTRIBUTION WIDTH 22.2 % (11.6-14.6)
[2019-02-14] MEDS: ACETYLCYSTEINE 100MG/ML 10% VIAL 4ML INH SCH ×3 (08:44→18:26)
[2019-02-14] MEDS: BUDESONIDE 0.5MG/2ML NEB HHN SCH ×2 (09:31→20:35)
[2019-02-14] MEDS: METOLAZONE 5MG TABLET PO SCH (09:34)
[2019-02-14] MEDS: DEXT 5%/0.45% NACL 1000ML 1,000 ML IV SCH (12:15)
[2019-02-14] MEDS: LEVOFLOXACIN 500MG PREMIX 100 ML IV SCH (19:17)
[2019-02-15] VITALS (10 sets, daily range): BP systolic 91–123; BP diastolic 46–66
[2019-02-15] MEDS: IPRATROPIUM/ALBUTEROL 0.5-3(2.5)MG/3ML NEB HHN SCH ×7 (00:28→20:09)
[2019-02-15] MEDS: ACETYLCYSTEINE 100MG/ML 10% VIAL 4ML INH SCH ×3 (00:30→16:53)
[2019-02-15] MEDS: MORPHINE SULFATE 4 MG/ML CPJ (NOT FOR IM USE) IV PRN ×5 (01:56→20:06)
[2019-02-15] MEDS: METRONIDAZOLE 500 MG PREMIX 100 ML IV SCH ×4 (01:56→23:41)
[2019-02-15] MEDS: DEXT 5%/0.45% NACL 1000ML 1,000 ML IV SCH (04:50)
[2019-02-15] MEDS: FUROSEMIDE 40MG/4ML VIAL IVP SCH ×2 (06:49→17:17)
[2019-02-15 07:30] LABS: CHLORIDE 94 mEq/L (98-107)
[2019-02-15 08:02] LABS: HEMATOCRIT. 28.9 % (36.0-48.0); HEMOGLOBIN. 8.7 g/dL (12.0-16.0); MEAN CORPUSCULAR HEMOGLOBIN 24.9 pg (28.0-32.0); MEAN CORPUSCULAR VOLUME 82.9 fL (81.0-99.0); PLATELET 235 x1000/uL (130-400); RED BLOOD CELL COUNT 3.48 mill/uL (4.2-5.4); RED CELL DISTRIBUTION WIDTH 22.2 % (11.6-14.6)
[2019-02-15] MEDS: METOLAZONE 5MG TABLET PO SCH (10:13)
[2019-02-15] MEDS: BUDESONIDE 0.5MG/2ML NEB HHN SCH ×2 (13:02→20:10)
[2019-02-15 13:08] LABS: PLATELET ESTIMATE NORMAL
[2019-02-15] MEDS: LEVOFLOXACIN 500MG PREMIX 100 ML IV SCH (19:26)
[2019-02-16] VITALS (8 sets, daily range): BP systolic 93–127; BP diastolic 50–71
[2019-02-16] MEDS: ACETYLCYSTEINE 100MG/ML 10% VIAL 4ML INH SCH ×3 (00:05→16:00)
[2019-02-16] MEDS: IPRATROPIUM/ALBUTEROL 0.5-3(2.5)MG/3ML NEB HHN SCH ×5 (00:06→20:48)
[2019-02-16] MEDS: MORPHINE SULFATE 4 MG/ML CPJ (NOT FOR IM USE) IV PRN ×2 (00:47→05:14)
[2019-02-16] MEDS: DEXT 5%/0.45% NACL 1000ML 1,000 ML IV SCH ×2 (06:11→16:23)
[2019-02-16 06:38] LABS: INR 1.5; PROTHROMBIN TIME 15.4 sec (9.1-11.1)
[2019-02-16 06:43] LABS: HEMATOCRIT. 28.1 % (36.0-48.0); HEMOGLOBIN. 8.5 g/dL (12.0-16.0); MEAN CORPUSCULAR HEMOGLOBIN 25.1 pg (28.0-32.0); MEAN CORPUSCULAR VOLUME 82.6 fL (81.0-99.0); MEAN PLATELET VOLUME 7.7 fl (7.4-10.4); PLATELET 217 x1000/uL (130-400); RED CELL DISTRIBUTION WIDTH 22.7 % (11.6-14.6)
[2019-02-16 06:57] LABS: CHLORIDE 93 mEq/L (98-107)
[2019-02-16 07:06] LABS: PLATELET ESTIMATE NORMAL
[2019-02-16 07:09] LABS: PHOSPHORUS 3.1 mg/dL (2.5-4.9)
[2019-02-16] MEDS: FUROSEMIDE 40MG/4ML VIAL IVP SCH ×2 (07:15→16:29)
[2019-02-16] MEDS: METRONIDAZOLE 500 MG PREMIX 100 ML IV SCH ×3 (07:18→23:15)
[2019-02-16] MEDS ORDERED: NORMAL SALINE 0.9% 10 ML SYR ONE (07:24)
[2019-02-16] MEDS ORDERED: BUPIVACAINE HCL 0.5% (5MG/ML) 50ML ONE (07:25)
[2019-02-16] MEDS ORDERED: BACITRACIN 50,000 UNITS/VIAL ONE (07:25)
[2019-02-16] MEDS ORDERED: FENTANYL CITRATE/PF 50MCG/ML 2ML VIAL ONE ×3 (07:26→10:14)
[2019-02-16] MEDS ORDERED: PROPOFOL 200MG/20ML VIAL IV ONE (07:26)
[2019-02-16] MEDS ORDERED: ROCURONIUM BROMIDE 10MG/ML VIAL 5ML IV ONE (07:26)
[2019-02-16] MEDS ORDERED: NEOSTIGMINE METHYLSULFATE 1MG/ML 10 ML VIAL ONE (07:26)
[2019-02-16] MEDS ORDERED: MIDAZOLAM HCL 2 MG/2 ML VIAL ONE (07:27)
[2019-02-16] MEDS ORDERED: GLYCOPYRROLATE 0.2 MG/ML 2ML VIAL ONE (07:27)
[2019-02-16] MEDS ORDERED: LIDOCAINE HCL 1% 20ML VIAL (Pyxis) INJ ONE (07:32)
[2019-02-16] MEDS ORDERED: DEXAMETHASONE 4MG/ML 1ML VIAL ONE (07:55)
[2019-02-16] MEDS ORDERED: ONDANSETRON HCL 4MG/2ML INJ ONE ×2 (07:55→10:13)
[2019-02-16] MEDS: METOLAZONE 5MG TABLET PO SCH (09:00)
[2019-02-16] MEDS ORDERED: CEFOXITIN SODIUM 2 G in DEXT 5% WATER 100 ML IV SCH (09:06)
[2019-02-16] MEDS: CEFOXITIN 1G in DEXTROSE 5% WATER 50ML IV SCH ×2 (09:30→10:00)
[2019-02-16] MEDS ORDERED: FENTANYL CITRATE/PF 50MCG/ML 2ML VIAL IV PRN (09:45)
[2019-02-16] MEDS ORDERED: ONDANSETRON HCL 4MG/2ML INJ IV PRN (09:45)
[2019-02-16] MEDS ORDERED: MEPERIDINE HCL/PF 25MG/ML CPJ IV PRN (09:45)
[2019-02-16] MEDS ORDERED: HYDROMORPHONE HCL/PF 2MG/ML CPJ IV PRN (09:45)
[2019-02-16] MEDS ORDERED: MORPHINE SULFATE 4 MG/ML CPJ (NOT FOR IM USE) IV PRN (09:45)
[2019-02-16 10:01] LABS: PLATELET ESTIMATE NORMAL
[2019-02-16] MEDS ORDERED: METOCLOPRAMIDE HCL 10MG/2ML VIAL ONE (10:14)
[2019-02-16] MEDS ORDERED: DIPHENHYDRAMINE INJ IV PRN (11:30)
[2019-02-16] MEDS ORDERED: NALOXONE INJ IV PRN (11:30)
[2019-02-16] MEDS: BLOOD SUGAR DIAGNOSTIC STRIP TEST SCH ×3 (12:00→23:15)
[2019-02-16] MEDS: HYDROMORPHONE PCA 10MG/50ML IV PRN (12:22)
[2019-02-16 13:05] LABS: BG BASE EXCESS 15.7 mmol/L (-2.0-2.0); BG CARBOXYHEMOGLOBIN 0.9 % (0.5-1.5); BG DEOXYHEMOGLOBIN 7.3 % (0.0-5.0); BG HCO3 ACT 43.2 mmol/L (22.0-26.0); BG METHEMOGLOBIN 0.8 % (0.0-1.5); BG OXYGEN SATURATION 92.6 % (92.0-98.5); BG PH 7.408 (7.350-7.450); BG PO2 69.1 mmHg (75.0-100.0); BG SAMPLE SITE RIGHT RADIAL; BG VENT MODE MASK - SIMPLE
[2019-02-16] MEDS: BUDESONIDE 0.5MG/2ML NEB HHN SCH (16:00)
[2019-02-16] MEDS: LEVOFLOXACIN 500MG PREMIX 100 ML IV SCH (17:43)
[2019-02-16] MEDS: FAT EMULSIONS 500 ML IV SCH (20:35)
[2019-02-16] MEDS ORDERED: TOTAL PARENTERAL NUTRITION 1,400 ML IV SCH (21:00)
[2019-02-17] VITALS (11 sets, daily range): BP systolic 91–104; BP diastolic 48–64
[2019-02-17] MEDS: BUDESONIDE 0.5MG/2ML NEB HHN SCH ×3 (00:27→20:29)
[2019-02-17] MEDS: IPRATROPIUM/ALBUTEROL 0.5-3(2.5)MG/3ML NEB HHN SCH ×7 (00:27→23:51)
[2019-02-17] MEDS: ACETYLCYSTEINE 100MG/ML 10% VIAL 4ML INH SCH ×4 (00:27→23:51)
[2019-02-17 06:44] LABS: HEMOGLOBIN. 9.6 g/dL (12.0-16.0); MEAN CORPUSCULAR HEMOGLOBIN 25.4 pg (28.0-32.0); MEAN CORPUSCULAR VOLUME 83.2 fL (81.0-99.0); MEAN PLATELET VOLUME 7.6 fl (7.4-10.4); PLATELET 249 x1000/uL (130-400); RED CELL DISTRIBUTION WIDTH 23.6 % (11.6-14.6)
[2019-02-17 07:04] LABS: HEMATOCRIT. 31.6 % (36.0-48.0)
[2019-02-17 07:07] LABS: CHLORIDE 94 mEq/L (98-107)
[2019-02-17] MEDS: METRONIDAZOLE 500 MG PREMIX 100 ML IV SCH ×2 (07:58→16:05)
[2019-02-17] MEDS: FUROSEMIDE 40MG/4ML VIAL IVP SCH ×2 (07:58→17:02)
[2019-02-17] MEDS: METOLAZONE 5MG TABLET PO SCH (08:07)
[2019-02-17] MEDS ORDERED: BLOOD SUGAR DIAGNOSTIC STRIP TEST SCH (09:00)
[2019-02-17 11:21] LABS: PLATELET ESTIMATE NORMAL
[2019-02-17] MEDS: DEXT 5%/0.45% NACL 1000ML 1,000 ML IV SCH (12:01)
[2019-02-17] MEDS: BLOOD SUGAR DIAGNOSTIC STRIP TEST SCH ×2 (12:02→17:03)
[2019-02-17] MEDS: POTASSIUM CHLORIDE INJ 40 MEQ in DEXT 5% WATER 250 ML IV SCH ×2 (12:23→12:36)
[2019-02-17 16:13] LABS: BG BASE EXCESS 17.4 mmol/L (-2.0-2.0); BG CARBOXYHEMOGLOBIN 0.9 % (0.5-1.5); BG DEOXYHEMOGLOBIN 4.6 % (0.0-5.0); BG FRACTION INSPIRED OXYGEN 36; BG HCO3 ACT 44.4 mmol/L (22.0-26.0); BG METHEMOGLOBIN 0.4 % (0.0-1.5); BG OXYGEN SATURATION 95.3 % (92.0-98.5); BG OXYHEMOGLOBIN 94.1 % (94.0-97.0); BG PCO2 69.8 mmHg (35.0-45.0); BG PH 7.421 (7.350-7.450); BG PO2 76.3 mmHg (75.0-100.0); BG SAMPLE SITE RIGHT RADIAL; BG TOTAL HEMOGLOBIN 9.3 g/dL (12.0-18.0); BG VENT MODE NASAL CANNULA
[2019-02-17] MEDS: LEVOFLOXACIN 500MG PREMIX 100 ML IV SCH (20:57)
[2019-02-17] MEDS ORDERED: TOTAL PARENTERAL NUTRITION 1,400 ML IV SCH (21:00)
[2019-02-18] VITALS (12 sets, daily range): BP systolic 88–131; BP diastolic 29–84
[2019-02-18] MEDS: BLOOD SUGAR DIAGNOSTIC STRIP TEST SCH ×4 (00:11→17:22)
[2019-02-18] MEDS: DEXT 5%/0.45% NACL 1000ML 1,000 ML IV SCH ×2 (00:11→17:30)
[2019-02-18] MEDS: METRONIDAZOLE 500 MG PREMIX 100 ML IV SCH ×3 (00:11→15:40)
[2019-02-18] MEDS: IPRATROPIUM/ALBUTEROL 0.5-3(2.5)MG/3ML NEB HHN SCH ×5 (04:04→20:39)
[2019-02-18 06:24] LABS: CHLORIDE 94 mEq/L (98-107)
[2019-02-18 06:27] LABS: HEMATOCRIT. 27.2 % (36.0-48.0); HEMOGLOBIN. 8.2 g/dL (12.0-16.0); MEAN CORPUSCULAR VOLUME 83.1 fL (81.0-99.0); MEAN PLATELET VOLUME 7.9 fl (7.4-10.4); PLATELET 181 x1000/uL (130-400); RED BLOOD CELL COUNT 3.27 mill/uL (4.2-5.4); RED CELL DISTRIBUTION WIDTH 23.6 % (11.6-14.6)
[2019-02-18] MEDS: FUROSEMIDE 40MG/4ML VIAL IVP SCH ×2 (06:27→17:15)
[2019-02-18] MEDS: ACETYLCYSTEINE 100MG/ML 10% VIAL 4ML INH SCH ×2 (08:10→16:45)
[2019-02-18] MEDS: BUDESONIDE 0.5MG/2ML NEB HHN SCH ×2 (08:10→20:39)
[2019-02-18 10:29] LABS: PLATELET ESTIMATE NORMAL
[2019-02-18] MEDS ORDERED: POTASSIUM CHLORIDE INJ 40 MEQ in DEXT 5% WATER 250 ML IV NR (16:00)
[2019-02-18] MEDS ORDERED: TOTAL PARENTERAL NUTRITION 1,400 ML IV SCH (21:00)
[2019-02-18] MEDS: FAT EMULSIONS 500 ML IV SCH (22:19)
[2019-02-18] MEDS: LEVOFLOXACIN 500MG PREMIX 100 ML IV SCH (22:20)
[2019-02-19] VITALS (15 sets, daily range): BP systolic 90–127; BP diastolic 44–92
[2019-02-19] MEDS: ACETYLCYSTEINE 100MG/ML 10% VIAL 4ML INH SCH ×3 (00:06→16:28)
[2019-02-19] MEDS: IPRATROPIUM/ALBUTEROL 0.5-3(2.5)MG/3ML NEB HHN SCH ×6 (00:06→20:31)
[2019-02-19] MEDS: METRONIDAZOLE 500 MG PREMIX 100 ML IV SCH ×3 (00:19→15:44)
[2019-02-19] MEDS: BLOOD SUGAR DIAGNOSTIC STRIP TEST SCH ×3 (00:19→12:35)
[2019-02-19] MEDS: FUROSEMIDE 40MG/4ML VIAL IVP SCH ×2 (06:33→17:52)
[2019-02-19 06:54] LABS: HEMATOCRIT. 24.8 % (36.0-48.0); HEMOGLOBIN. 7.7 g/dL (12.0-16.0); MEAN CORPUSCULAR HEMOGLOBIN 25.5 pg (28.0-32.0); MEAN CORPUSCULAR VOLUME 82.2 fL (81.0-99.0); PLATELET 186 x1000/uL (130-400); RED BLOOD CELL COUNT 3.02 mill/uL (4.2-5.4); RED CELL DISTRIBUTION WIDTH 23.7 % (11.6-14.6)
[2019-02-19 07:07] LABS: CHLORIDE 94 mEq/L (98-107)
[2019-02-19 07:53] LABS: PLATELET ESTIMATE NORMAL
[2019-02-19] MEDS: BUDESONIDE 0.5MG/2ML NEB HHN SCH ×2 (08:00→20:31)
[2019-02-19] MEDS: IPRATROPIUM/ALBUTEROL 0.5-3(2.5)MG/3ML NEB HHN PRN (08:35)
[2019-02-19] MEDS ORDERED: POTASSIUM CHLORIDE INJ 40 MEQ in DEXT 5% WATER 250 ML IV SCH (10:00)
[2019-02-19] MEDS ORDERED: PHENYLEPHRINE HCL 10 MG/ML 1ML (IV VIAL) IV ONE (15:08)
[2019-02-19] MEDS: LEVOFLOXACIN 500MG PREMIX 100 ML IV SCH (19:43)
[2019-02-19] MEDS ORDERED: TOTAL PARENTERAL NUTRITION 1,400 ML IV SCH (21:00)
[2019-02-19] MEDS: DEXT 5%/0.45% NACL 1000ML 1,000 ML IV SCH (21:08)
[2019-02-20] VITALS (13 sets, daily range): BP systolic 92–129; BP diastolic 43–96
[2019-02-20] MEDS: METRONIDAZOLE 500 MG PREMIX 100 ML IV SCH ×4 (00:14→23:57)
[2019-02-20] MEDS: ACETYLCYSTEINE 100MG/ML 10% VIAL 4ML INH SCH ×3 (00:28→16:00)
[2019-02-20] MEDS: IPRATROPIUM/ALBUTEROL 0.5-3(2.5)MG/3ML NEB HHN SCH ×6 (00:28→20:42)
[2019-02-20] MEDS: DEXT 5%/0.45% NACL 1000ML 1,000 ML IV SCH ×2 (03:48→18:10)
[2019-02-20] MEDS: FUROSEMIDE 40MG/4ML VIAL IVP SCH ×2 (06:33→18:10)
[2019-02-20 08:41] LABS: HEMATOCRIT. 25.7 % (36.0-48.0); HEMOGLOBIN. 7.8 g/dL (12.0-16.0); MEAN CORPUSCULAR HEMOGLOBIN 25.2 pg (28.0-32.0); MEAN CORPUSCULAR VOLUME 83.2 fL (81.0-99.0); PLATELET 169 x1000/uL (130-400); RED BLOOD CELL COUNT 3.08 mill/uL (4.2-5.4); RED CELL DISTRIBUTION WIDTH 23.9 % (11.6-14.6)
[2019-02-20 08:50] LABS: CHLORIDE 92 mEq/L (98-107)
[2019-02-20] MEDS: BUDESONIDE 0.5MG/2ML NEB HHN SCH (09:19)
[2019-02-20] MEDS: HYDROMORPHONE PCA 10MG/50ML IV PRN (10:12)
[2019-02-20] MEDS: LEVOFLOXACIN 500MG PREMIX 100 ML IV SCH (18:10)
[2019-02-20] MEDS ORDERED: TOTAL PARENTERAL NUTRITION 1,400 ML IV SCH (21:00)
[2019-02-21] VITALS (17 sets, daily range): BP systolic 81–118; BP diastolic 35–72
[2019-02-21] MEDS: ACETYLCYSTEINE 100MG/ML 10% VIAL 4ML INH SCH ×3 (03:04→16:10)
[2019-02-21] MEDS: IPRATROPIUM/ALBUTEROL 0.5-3(2.5)MG/3ML NEB HHN SCH ×5 (03:04→20:36)
[2019-02-21] MEDS: BUDESONIDE 0.5MG/2ML NEB HHN SCH ×2 (03:21→08:06)
[2019-02-21 06:32] LABS: HEMATOCRIT. 23.3 % (36.0-48.0); HEMOGLOBIN. 7.1 g/dL (12.0-16.0); MEAN CORPUSCULAR HEMOGLOBIN 25.2 pg (28.0-32.0); MEAN CORPUSCULAR VOLUME 82.9 fL (81.0-99.0); MEAN PLATELET VOLUME 8.2 fl (7.4-10.4); PLATELET 162 x1000/uL (130-400); RED BLOOD CELL COUNT 2.81 mill/uL (4.2-5.4); RED CELL DISTRIBUTION WIDTH 24.2 % (11.6-14.6)
[2019-02-21] MEDS: METRONIDAZOLE 500 MG PREMIX 100 ML IV SCH ×2 (06:45→14:49)
[2019-02-21] MEDS: FUROSEMIDE 40MG/4ML VIAL IVP SCH ×2 (06:45→18:12)
[2019-02-21 08:04] LABS: CHLORIDE 92 mEq/L (98-107)
[2019-02-21] MEDS ORDERED: HYDROCODONE/ACETAMINOPHEN 5/325MG TABLET PO PRN (09:45)
[2019-02-21] MEDS ORDERED: BENZONATATE 100MG CAPSULE PO PRN (09:45)
[2019-02-21] MEDS: MORPHINE SULFATE 4 MG/ML CPJ (NOT FOR IM USE) IV PRN ×2 (11:04→19:10)
[2019-02-21] MEDS: DEXT 5%/0.45% NACL 1000ML 1,000 ML IV SCH (11:27)
[2019-02-21 11:55] LABS: PLATELET ESTIMATE NORMAL
[2019-02-21 13:34] LABS: PLATELET ESTIMATE NORMAL
[2019-02-21] MEDS ORDERED: OXYCODONE HCL/ACETAMINOPHEN 5/325MG TABLET PO PRN (15:30)
[2019-02-22] VITALS (13 sets, daily range): BP systolic 90–133; BP diastolic 38–94
[2019-02-22] MEDS: IPRATROPIUM/ALBUTEROL 0.5-3(2.5)MG/3ML NEB HHN SCH ×6 (00:57→20:35)
[2019-02-22] MEDS: ACETYLCYSTEINE 100MG/ML 10% VIAL 4ML INH SCH ×3 (00:57→17:05)
[2019-02-22] MEDS: MORPHINE SULFATE 4 MG/ML CPJ (NOT FOR IM USE) IV PRN ×4 (02:39→22:13)
[2019-02-22] MEDS: DEXT 5%/0.45% NACL 1000ML 1,000 ML IV SCH ×2 (04:23→22:15)
[2019-02-22 07:28] LABS: CHLORIDE 91 mEq/L (98-107)
[2019-02-22 07:33] LABS: HEMATOCRIT. 23.5 % (36.0-48.0); HEMOGLOBIN. 7.5 g/dL (12.0-16.0); MEAN CORPUSCULAR HEMOGLOBIN 26.2 pg (28.0-32.0); MEAN CORPUSCULAR VOLUME 81.9 fL (81.0-99.0); PLATELET 165 x1000/uL (130-400); RED BLOOD CELL COUNT 2.87 mill/uL (4.2-5.4); RED CELL DISTRIBUTION WIDTH 24.3 % (11.6-14.6)
[2019-02-22] MEDS: FUROSEMIDE 40MG/4ML VIAL IVP SCH ×2 (08:12→17:26)
[2019-02-22] MEDS: BUDESONIDE 0.5MG/2ML NEB HHN SCH ×2 (09:11→20:35)
[2019-02-22] MEDS ORDERED: POTASSIUM CHLORIDE 20MEQ TABLET SR PO SCH (10:30)
[2019-02-22 14:17] LABS: PLATELET ESTIMATE NORMAL
[2019-02-23] VITALS: BP 114/50
[2019-02-23] MEDS: IPRATROPIUM/ALBUTEROL 0.5-3(2.5)MG/3ML NEB HHN SCH ×6 (00:35→20:22)
[2019-02-23] MEDS: MORPHINE SULFATE 4 MG/ML CPJ (NOT FOR IM USE) IV PRN ×3 (02:59→17:28)
[2019-02-23 04:00] VITALS: BP 100/49
[2019-02-23 06:34] LABS: HEMATOCRIT. 23.6 % (36.0-48.0); HEMOGLOBIN. 7.5 g/dL (12.0-16.0); MEAN CORPUSCULAR HEMOGLOBIN 25.9 pg (28.0-32.0); MEAN CORPUSCULAR VOLUME 81.7 fL (81.0-99.0); MEAN PLATELET VOLUME 8.2 fl (7.4-10.4); PLATELET 174 x1000/uL (130-400); RED BLOOD CELL COUNT 2.89 mill/uL (4.2-5.4); RED CELL DISTRIBUTION WIDTH 24.2 % (11.6-14.6)
[2019-02-23] MEDS: FUROSEMIDE 40MG/4ML VIAL IVP SCH ×2 (06:54→17:31)
[2019-02-23 08:00] VITALS: BP 102/60
[2019-02-23] MEDS: BUDESONIDE 0.5MG/2ML NEB HHN SCH ×2 (08:40→20:22)
[2019-02-23] MEDS: ACETYLCYSTEINE 100MG/ML 10% VIAL 4ML INH SCH ×3 (08:40→16:25)
[2019-02-23 08:49] LABS: CHLORIDE 94 mEq/L (98-107)
[2019-02-23] MEDS ORDERED: POTASSIUM CHLORIDE 20MEQ/PACKET PO NR (09:45)
[2019-02-23] MEDS ORDERED: KCL 20MEQ/100ML PREMIX 100 ML IV SCH (10:30)
[2019-02-23 12:00] VITALS: BP 93/43
[2019-02-23] MEDS: DEXT 5%/0.45% NACL 1000ML 1,000 ML IV SCH (13:09)
[2019-02-23 14:22] LABS: PLATELET ESTIMATE NORMAL
[2019-02-23 16:00] VITALS: BP 116/56
[2019-02-23 20:00] VITALS: BP 120/60
[2019-02-24] VITALS: BP 104/52
[2019-02-24] MEDS: IPRATROPIUM/ALBUTEROL 0.5-3(2.5)MG/3ML NEB HHN SCH ×7 (02:01→23:18)
[2019-02-24] MEDS: ACETYLCYSTEINE 100MG/ML 10% VIAL 4ML INH SCH ×2 (02:01→23:18)
[2019-02-24] MEDS: MORPHINE SULFATE 4 MG/ML CPJ (NOT FOR IM USE) IV PRN ×4 (03:17→21:04)
[2019-02-24 04:00] VITALS: BP 107/45
[2019-02-24] MEDS: DEXT 5%/0.45% NACL 1000ML 1,000 ML IV SCH ×2 (05:30→10:32)
[2019-02-24] MEDS: FUROSEMIDE 40MG/4ML VIAL IVP SCH ×2 (07:04→17:50)
[2019-02-24 08:00] VITALS: BP 104/52
[2019-02-24] MEDS: BUDESONIDE 0.5MG/2ML NEB HHN SCH ×2 (09:23→20:59)
[2019-02-24 12:00] VITALS: BP 110/46
[2019-02-24 12:57] LABS: HEMATOCRIT. 23.4 % (36.0-48.0); HEMOGLOBIN. 7.3 g/dL (12.0-16.0); MEAN CORPUSCULAR HEMOGLOBIN 25.8 pg (28.0-32.0); MEAN CORPUSCULAR VOLUME 82.6 fL (81.0-99.0); MEAN PLATELET VOLUME 7.5 fl (7.4-10.4); PLATELET 174 x1000/uL (130-400); RED BLOOD CELL COUNT 2.83 mill/uL (4.2-5.4); RED CELL DISTRIBUTION WIDTH 24.3 % (11.6-14.6)
[2019-02-24 13:01] LABS: CHLORIDE 95 mEq/L (98-107)
[2019-02-24] MEDS ORDERED: POTASSIUM CHLORIDE 20MEQ/PACKET PO NR (13:30)
[2019-02-24 13:35] LABS: PLATELET ESTIMATE NORMAL
[2019-02-24] MEDS ORDERED: POTASSIUM CHLORIDE INJ 40 MEQ in DEXT 5% WATER 250 ML IV SCH (14:30)
[2019-02-24 15:17] VITALS: BP 104/55
[2019-02-24 20:34] VITALS: BP 124/61
[2019-02-25 00:37] VITALS: BP 106/51
[2019-02-25 04:00] VITALS: BP 117/54
[2019-02-25] MEDS: IPRATROPIUM/ALBUTEROL 0.5-3(2.5)MG/3ML NEB HHN SCH ×5 (04:30→21:20)
[2019-02-25] MEDS: MORPHINE SULFATE 4 MG/ML CPJ (NOT FOR IM USE) IV PRN ×4 (05:59→20:39)
[2019-02-25] MEDS: FUROSEMIDE 40MG/4ML VIAL IVP SCH ×2 (06:44→17:39)
[2019-02-25 07:11] LABS: HEMATOCRIT. 23.4 % (36.0-48.0); HEMOGLOBIN. 7.3 g/dL (12.0-16.0); MEAN CORPUSCULAR HEMOGLOBIN 25.7 pg (28.0-32.0); MEAN CORPUSCULAR VOLUME 82.4 fL (81.0-99.0); MEAN PLATELET VOLUME 8.4 fl (7.4-10.4); PLATELET 185 x1000/uL (130-400); RED BLOOD CELL COUNT 2.84 mill/uL (4.2-5.4); RED CELL DISTRIBUTION WIDTH 24.1 % (11.6-14.6)
[2019-02-25] MEDS: DEXT 5%/0.45% NACL 1000ML 1,000 ML IV SCH (08:10)
[2019-02-25 08:20] VITALS: BP 134/78
[2019-02-25] MEDS: ACETYLCYSTEINE 100MG/ML 10% VIAL 4ML INH SCH ×2 (09:05→17:27)
[2019-02-25] MEDS: BUDESONIDE 0.5MG/2ML NEB HHN SCH ×2 (09:05→21:20)
[2019-02-25 10:30] LABS: PLATELET ESTIMATE NORMAL
[2019-02-25 12:30] VITALS: BP 132/62
[2019-02-25] MEDS: DILTIAZEM HCL 30MG TABLET PO SCH ×2 (14:48→21:52)
[2019-02-25] MEDS: IPRATROPIUM/ALBUTEROL 0.5-3(2.5)MG/3ML NEB HHN PRN (14:58)
[2019-02-25 16:00] VITALS: BP 128/73
[2019-02-25] MEDS ORDERED: RIVAROXABAN 20 MG TABLET PO SCH (17:00)
[2019-02-25] MEDS: ONDANSETRON INJ IV PRN (17:44)
[2019-02-25 20:00] VITALS: BP 115/54
[2019-02-26] VITALS (7 sets, daily range): BP systolic 99–124; BP diastolic 42–60
[2019-02-26] MEDS: ACETYLCYSTEINE 100MG/ML 10% VIAL 4ML INH SCH ×3 (01:00→16:01)
[2019-02-26] MEDS: MORPHINE SULFATE 4 MG/ML CPJ (NOT FOR IM USE) IV PRN ×4 (01:00→14:38)
[2019-02-26] MEDS: IPRATROPIUM/ALBUTEROL 0.5-3(2.5)MG/3ML NEB HHN SCH ×6 (01:01→20:17)
[2019-02-26] MEDS: ONDANSETRON INJ IV PRN (01:51)
[2019-02-26] MEDS: IPRATROPIUM/ALBUTEROL 0.5-3(2.5)MG/3ML NEB HHN PRN (02:59)
[2019-02-26] MEDS: DILTIAZEM HCL 30MG TABLET PO SCH ×3 (06:00→21:45)
[2019-02-26] MEDS: FUROSEMIDE 40MG/4ML VIAL IVP SCH ×2 (06:55→18:43)
[2019-02-26] MEDS: BUDESONIDE 0.5MG/2ML NEB HHN SCH ×2 (08:27→20:14)
[2019-02-26 12:16] LABS: HEMATOCRIT. 23.5 % (36.0-48.0); HEMOGLOBIN. 7.3 g/dL (12.0-16.0); MEAN CORPUSCULAR HEMOGLOBIN 25.8 pg (28.0-32.0); MEAN CORPUSCULAR VOLUME 83.2 fL (81.0-99.0); MEAN PLATELET VOLUME 7.6 fl (7.4-10.4); PLATELET 202 x1000/uL (130-400); RED BLOOD CELL COUNT 2.82 mill/uL (4.2-5.4)
[2019-02-26 12:21] LABS: CHLORIDE 95 mEq/L (98-107)
[2019-02-26 12:28] LABS: PHOSPHORUS 2.5 mg/dL (2.5-4.9)
[2019-02-26 13:30] LABS: PLATELET ESTIMATE NORMAL
[2019-02-26] MEDS ORDERED: AZTREONAM 1 G in DEXTROSE 5% WATER 50 ML IV SCH (18:00)
[2019-02-26] MEDS: DEXT 5%/0.45% NACL 1000ML 1,000 ML IV SCH (18:43)
[2019-02-27] MEDS: ACETYLCYSTEINE 100MG/ML 10% VIAL 4ML INH SCH (00:25)
[2019-02-27] MEDS: IPRATROPIUM/ALBUTEROL 0.5-3(2.5)MG/3ML NEB HHN SCH (00:29)
[2019-02-27 00:34] VITALS: BP 104/48
== END 2019-02-27 02:45 | disposition home health service (06) | DRG 224 ==
LOC: ER 20:12 → 7WST 23:42 → EDBEDREQTM 23:45 → EDBEDREQ 23:45 → ENRESERV 02-09 10:31 → 7WST 02-11 11:34 → 5EST 02-14 12:30 → 6WST 02-22 14:45
PROVIDERS: ADMIT Internal Medicine; ATTEND Internal Medicine
PROC: 0D9670Z Drainage of Stomach with Drainage Device, Via Natural or Artificial Opening (ICD-10-PCS; 2019-02-12)
PROC: 05HY33Z Insertion of Infusion Device into Upper Vein, Percutaneous Approach (ICD-10-PCS; 2019-02-15)
PROC: 0DN80ZZ Release Small Intestine, Open Approach (ICD-10-PCS; principal; 2019-02-16)
DX: K56.50 Intestinal adhesions [bands], unspecified as to partial versus complete obstruction (principal); J96.21 Acute and chronic respiratory failure with hypoxia; I50.33 Acute on chronic diastolic (congestive) heart failure; J18.9 Pneumonia, unspecified organism; I27.20 Pulmonary hypertension, unspecified; D68.9 Coagulation defect, unspecified; E66.01 Morbid (severe) obesity due to excess calories; Z68.43 Body mass index [BMI] 50.0-59.9, adult; I48.91 Unspecified atrial fibrillation; I11.0 Hypertensive heart disease with heart failure; J96.22 Acute and chronic respiratory failure with hypercapnia; J44.9 Chronic obstructive pulmonary disease, unspecified; Z99.81 Dependence on supplemental oxygen; D64.9 Anemia, unspecified; K44.9 Diaphragmatic hernia without obstruction or gangrene; G89.4 Chronic pain syndrome; K29.70 Gastritis, unspecified, without bleeding; F17.210 Nicotine dependence, cigarettes, uncomplicated; I25.10 Atherosclerotic heart disease of native coronary artery without angina pectoris; R18.8 Other ascites; K56.7 Ileus, unspecified; J44.0 Chronic obstructive pulmonary disease with (acute) lower respiratory infection; J98.19 Other pulmonary collapse; M48.02 Spinal stenosis, cervical region; N31.9 Neuromuscular dysfunction of bladder, unspecified; T17.990A Other foreign object in respiratory tract, part unspecified in causing asphyxiation, initial encounter; X58.XXXA Exposure to other specified factors, initial encounter; Y93.89 Activity, other specified; Y92.89 Other specified places as the place of occurrence of the external cause; Y99.8 Other external cause status; Z74.01 Bed confinement status; Z86.718 Personal history of other venous thrombosis and embolism; Z88.0 Allergy status to penicillin; Z95.5 Presence of coronary angioplasty implant and graft; I25.2 Old myocardial infarction; Z95.828 Presence of other vascular implants and grafts; Z99.3 Dependence on wheelchair; Z88.6 Allergy status to analgesic agent; Z88.8 Allergy status to other drugs, medicaments and biological substances; Z79.899 Other long term (current) drug therapy; Z71.3 Dietary counseling and surveillance
CPT/HCPCS: 36415; 36569; 36600; 71045; 74176; 74249; 76604; 76700; 76937; 80048; 82140; 82247; 82248; 82375; 82465; 82805; 82962; 83605; 83735; 83880; 84100; 84132; 84134; 84478; 84484; 86705; 86709; 86803; 86850; 86900; 86920; 87015; 87045; 87340; 87427; 87449; 89055; 93005; 94002; 94640; 94667; 96374; 96375; 97162; 99285; A6261; C1725; C1758; J0456; J0694; J1100; J1170; J1940; J1956; J2250; J2270; J2370; J2405; J2704; J2710; J2765; J3010; J3480; J3490; J7030; J7050; J7060; J7608; J7620; J7626; Q9963

== ENCOUNTER 2019-03-09 23:28 | Inpatient (IN) | payer MEDICAID ==
[~2019-03-09] VITALS: Ht 175.3 cm; Wt 179.2 kg
[2019-03-09] MEDS ORDERED: ONDANSETRON HCL 4MG/2ML INJ IV STA (23:55)
[2019-03-09] MEDS ORDERED: MORPHINE SULFATE 4 MG/ML CPJ (NOT FOR IM USE) IV STA (23:55)
[2019-03-10] MEDS ORDERED: NITROGLYCERIN OINT 1GM/INCH UDPKT TD ONE
[2019-03-10] MEDS ORDERED: FUROSEMIDE 40MG/4ML VIAL IV ONE
[2019-03-10 00:31] LABS: HEMOGLOBIN. 7.7 g/dL (12.0-16.0); MEAN CORPUSCULAR HEMOGLOBIN 25.5 pg (28.0-32.0); MEAN CORPUSCULAR VOLUME 83.1 fL (81.0-99.0); MEAN PLATELET VOLUME 7.8 fl (7.4-10.4); PLATELET 159 x1000/uL (130-400); RED BLOOD CELL COUNT 3.01 mill/uL (4.2-5.4); RED CELL DISTRIBUTION WIDTH 22.3 % (11.6-14.6)
[2019-03-10 00:38] LABS: CHLORIDE 100 mEq/L (98-107)
[2019-03-10 00:45] LABS: INR 1.2; PARTIAL THROMBOPLASTIN TIME 28.5 sec (23.4-31.0); PROTHROMBIN TIME 11.8 sec (9.6-11.0)
[2019-03-10 03:16] LABS: CLARITY URINE CLEAR (CLEAR); COLOR URINE YELLOW (YELLOW); KETONES URINE NEGATIVE (NEGATIVE); LEUKOCYTE ESTERASE URINE NEGATIVE (NEGATIVE); NITRITE URINE NEGATIVE (NEGATIVE); OCCULT BLOOD URINE NEGATIVE (NEGATIVE); PROTEIN URINE NEGATIVE (NEGATIVE); SPECIFIC GRAVITY URINE 1.007 (1.005-1.030); UROBILINOGEN URINE 0.2 E.U./dL (0.2-1.0)
[2019-03-10 03:35] LABS: PLATELET ESTIMATE NORMAL
[2019-03-10 09:00] VITALS: BP 126/46
[2019-03-10] MEDS ORDERED: ACETAMINOPHEN 325MG TABLET PO PRN (11:30)
[2019-03-10] MEDS ORDERED: DOCUSATE SODIUM 100MG CAPSULE PO PRN (11:30)
[2019-03-10] MEDS ORDERED: ONDANSETRON HCL 4MG/2ML INJ IV PRN (11:30)
[2019-03-10] MEDS ORDERED: LIDOCAINE HCL/PF 1% 2ML VIAL ONE (11:32)
[2019-03-10] MEDS ORDERED: DEXTROSE 50% WATER 50ML SYRINGE IV PRN (11:45)
[2019-03-10] MEDS: INSULIN LISPRO 100 UNITS/ML SUBCUT SCH ×3 (12:28→21:00)
[2019-03-10] MEDS: BLOOD SUGAR DIAGNOSTIC STRIP TEST SCH ×3 (12:28→21:00)
[2019-03-10] MEDS: PANTOPRAZOLE SODIUM 40 MG/VIAL IV SCH (13:20)
[2019-03-10] MEDS: SODIUM CHLORIDE 0.9% 1,000 ML IV SCH (13:20)
[2019-03-10 15:08] LABS: TOTAL IRON BINDING CAPACITY 227 ug/dL (250-450)
[2019-03-10 15:11] LABS: CREATINE KINASE 36 IU/L (26-192)
[2019-03-10 15:12] LABS: CREATINE KINASE MB FRACTION 1.2 ng/mL (0.5-3.6)
[2019-03-10] MEDS ORDERED: POTASSIUM CHLORIDE 20MEQ TABLET SR PO NR (15:15)
[2019-03-10 16:00] VITALS: BP 124/68
[2019-03-10 17:02] LABS: BG BASE EXCESS 11.1 mmol/L (-2.0-2.0); BG CARBOXYHEMOGLOBIN 0.4 % (0.5-1.5); BG DEOXYHEMOGLOBIN 43.1 % (0.0-5.0); BG FRACTION INSPIRED OXYGEN 21; BG HCO3 ACT 38.5 mmol/L (22.0-26.0); BG METHEMOGLOBIN 0.1 % (0.0-1.5); BG OXYGEN SATURATION 56.7 % (92.0-98.5); BG OXYHEMOGLOBIN 56.4 % (94.0-97.0); BG PCO2 71.1 mmHg (35.0-45.0); BG PH 7.352 (7.350-7.450); BG PO2 32.1 mmHg (75.0-100.0); BG SAMPLE SITE RIGHT RADIAL; BG TOTAL HEMOGLOBIN 9.2 g/dL (12.0-18.0); BG VENT MODE ROOM AIR
[2019-03-10] MEDS: DILTIAZEM HCL 30MG TABLET PO SCH (17:40)
[2019-03-10] MEDS: FUROSEMIDE 40MG/4ML VIAL IVP SCH (17:40)
[2019-03-10 20:02] LABS: *AMPHETAMINES SCREEN URINE NEGATIVE (NEGATIVE); *BARBITURATES SCREEN URINE NEGATIVE (NEGATIVE); *BENZODIAZEPINES SCREEN URINE PRESUMTIVE POSITIVE (NEGATIVE); *COCAINE SCREEN URINE NEGATIVE (NEGATIVE); METHADONE URINE SCREEN NEGATIVE (NEGATIVE); OPIATES URINE SCREEN PRESUMTIVE POSITIVE (NEGATIVE)
[2019-03-10 20:03] LABS: CANNABINOID URINE SCREEN NEGATIVE (NEGATIVE); PHENCYCLIDINE URINE SCREEN NEGATIVE (NEGATIVE)
[2019-03-10 20:33] VITALS: BP 123/51
[2019-03-10] MEDS ORDERED: DIAZEPAM 5 MG TABLET PO SCH ×2 (21:00)
[2019-03-10] MEDS: IPRATROPIUM/ALBUTEROL 0.5-3(2.5)MG/3ML NEB INH PRN (22:05)
[2019-03-11] VITALS: BP 103/49
[2019-03-11] MEDS: DILTIAZEM HCL 30MG TABLET PO SCH ×5 (00:55→18:00)
[2019-03-11 04:00] VITALS: BP 117/48
[2019-03-11] MEDS: BLOOD SUGAR DIAGNOSTIC STRIP TEST SCH ×2 (05:48→12:38)
[2019-03-11] MEDS: INSULIN LISPRO 100 UNITS/ML SUBCUT SCH ×2 (05:48→12:38)
[2019-03-11 07:22] LABS: HEMATOCRIT. 24.1 % (36.0-48.0); HEMOGLOBIN. 7.3 g/dL (12.0-16.0); MEAN CORPUSCULAR HEMOGLOBIN 25.4 pg (28.0-32.0); MEAN CORPUSCULAR VOLUME 83.5 fL (81.0-99.0); MEAN PLATELET VOLUME 8.3 fl (7.4-10.4); PLATELET 157 x1000/uL (130-400); RED BLOOD CELL COUNT 2.88 mill/uL (4.2-5.4); RED CELL DISTRIBUTION WIDTH 21.8 % (11.6-14.6)
[2019-03-11 07:57] LABS: CHLORIDE 100 mEq/L (98-107)
[2019-03-11] MEDS ORDERED: FUROSEMIDE 40MG/4ML VIAL IVP SCH (09:00)
[2019-03-11] MEDS: POTASSIUM CHLORIDE 20MEQ TABLET SR PO SCH ×3 (09:00→19:34)
[2019-03-11] MEDS ORDERED: FUROSEMIDE 40MG TABLET PO SCH (09:00)
[2019-03-11] MEDS: PANTOPRAZOLE SODIUM 40 MG/VIAL IV SCH (09:54)
[2019-03-11] MEDS: SODIUM CHLORIDE 0.9% 1,000 ML IV SCH (09:55)
[2019-03-11 10:38] LABS: PLATELET ESTIMATE NORMAL
[2019-03-11] MEDS: FUROSEMIDE 40MG/4ML VIAL IVP SCH ×2 (10:39→17:00)
[2019-03-11] MEDS: IPRATROPIUM/ALBUTEROL 0.5-3(2.5)MG/3ML NEB INH PRN ×3 (11:56→21:20)
[2019-03-11 12:00] VITALS: BP 141/52
[2019-03-11 12:36] LABS: BG BASE EXCESS 12.5 mmol/L (-2.0-2.0); BG CARBOXYHEMOGLOBIN 0.6 % (0.5-1.5); BG DEOXYHEMOGLOBIN 1.1 % (0.0-5.0); BG FRACTION INSPIRED OXYGEN 60; BG HCO3 ACT 39.7 mmol/L (22.0-26.0); BG METHEMOGLOBIN 0.5 % (0.0-1.5); BG OXYGEN SATURATION 98.9 % (92.0-98.5); BG OXYHEMOGLOBIN 97.8 % (94.0-97.0); BG PCO2 72.6 mmHg (35.0-45.0); BG PH 7.356 (7.350-7.450); BG PO2 142.7 mmHg (75.0-100.0); BG SAMPLE SITE RIGHT RADIAL; BG TOTAL HEMOGLOBIN 8.2 g/dL (12.0-18.0); BG VENT MODE MASK - SIMPLE
[2019-03-11] MEDS ORDERED: POTASSIUM CHLORIDE 20MEQ TABLET SR PO NR (13:00)
[2019-03-11] MEDS: IRON SUCROSE COMPLEX 100 MG/5 ML ML IV SCH (13:18)
[2019-03-11] MEDS ORDERED: IOHEXOL-350 100 ML BOTTLE ONE (14:17)
[2019-03-11 16:00] VITALS: BP 102/45
[2019-03-11 20:00] VITALS: BP 137/59
[2019-03-12] VITALS: BP 122/51
[2019-03-12] MEDS: DILTIAZEM HCL 30MG TABLET PO SCH ×4 (00:55→17:21)
[2019-03-12 04:00] VITALS: BP 128/54
[2019-03-12 07:53] VITALS: BP 130/66
[2019-03-12] MEDS: IRON SUCROSE COMPLEX 100 MG/5 ML ML IV SCH (09:04)
[2019-03-12] MEDS: FUROSEMIDE 40MG/4ML VIAL IVP SCH ×2 (09:04→16:26)
[2019-03-12] MEDS: PANTOPRAZOLE SODIUM 40 MG/VIAL IV SCH (09:04)
[2019-03-12] MEDS: POTASSIUM CHLORIDE 20MEQ TABLET SR PO SCH ×2 (09:04→16:26)
[2019-03-12] MEDS: IPRATROPIUM/ALBUTEROL 0.5-3(2.5)MG/3ML NEB INH PRN ×4 (10:06→20:40)
[2019-03-12 11:19] VITALS: BP 119/55
[2019-03-12 16:00] VITALS: BP 113/48
[2019-03-12] MEDS ORDERED: ACETAZOLAMIDE 250MG TABLET PO SCH (20:00)
[2019-03-12 20:03] VITALS: BP 108/49
[2019-03-13 00:32] VITALS: BP 132/57
[2019-03-13] MEDS: DILTIAZEM HCL 30MG TABLET PO SCH ×5 (02:50→18:14)
[2019-03-13 04:00] VITALS: BP 109/54
[2019-03-13] MEDS: IPRATROPIUM/ALBUTEROL 0.5-3(2.5)MG/3ML NEB INH PRN ×2 (04:52→21:15)
[2019-03-13] MEDS ORDERED: LIDOCAINE HCL/PF 1% 2ML VIAL ONE (05:00)
[2019-03-13 07:22] LABS: HEMATOCRIT. 23.3 % (36.0-48.0); HEMOGLOBIN. 7.1 g/dL (12.0-16.0); MEAN CORPUSCULAR HEMOGLOBIN 25.3 pg (28.0-32.0); MEAN CORPUSCULAR VOLUME 82.7 fL (81.0-99.0); MEAN PLATELET VOLUME 8.8 fl (7.4-10.4); PLATELET 145 x1000/uL (130-400); RED BLOOD CELL COUNT 2.81 mill/uL (4.2-5.4); RED CELL DISTRIBUTION WIDTH 21.6 % (11.6-14.6)
[2019-03-13 08:00] VITALS: BP 119/46
[2019-03-13 09:00] LABS: CHLORIDE 97 mEq/L (98-107)
[2019-03-13] MEDS: IRON SUCROSE COMPLEX 100 MG/5 ML ML IV SCH (09:32)
[2019-03-13] MEDS: PANTOPRAZOLE SODIUM 40 MG/VIAL IV SCH (09:32)
[2019-03-13] MEDS: FUROSEMIDE 40MG/4ML VIAL IVP SCH ×2 (09:32→18:14)
[2019-03-13] MEDS: POTASSIUM CHLORIDE 20MEQ TABLET SR PO SCH ×2 (09:32→18:14)
[2019-03-13 09:35] LABS: BG BASE EXCESS 10.9 mmol/L (-2.0-2.0); BG CARBOXYHEMOGLOBIN 0.7 % (0.5-1.5); BG DEOXYHEMOGLOBIN 1.1 % (0.0-5.0); BG FRACTION INSPIRED OXYGEN 60; BG HCO3 ACT 37.2 mmol/L (22.0-26.0); BG METHEMOGLOBIN 0.3 % (0.0-1.5); BG OXYGEN SATURATION 98.9 % (92.0-98.5); BG OXYHEMOGLOBIN 97.9 % (94.0-97.0); BG PCO2 62.6 mmHg (35.0-45.0); BG PH 7.392 (7.350-7.450); BG SAMPLE SITE LEFT RADIAL; BG TOTAL HEMOGLOBIN 7.7 g/dL (12.0-18.0); BG VENT MODE MASK - SIMPLE
[2019-03-13 10:00] LABS: PLATELET ESTIMATE NORMAL
[2019-03-13 12:04] VITALS: BP 103/47
[2019-03-13] MEDS ORDERED: POTASSIUM CHLORIDE 20MEQ TABLET SR PO NR (14:00)
[2019-03-13 15:59] VITALS: BP 128/57
[2019-03-13] MEDS: MORPHINE SULFATE 4 MG/ML CPJ (NOT FOR IM USE) IV PRN (18:12)
[2019-03-13] MEDS: POLYETHYLENE GLYCOL 3350 (17GM) 1 DOSE PACK PO SCH (18:12)
[2019-03-13 20:00] VITALS: BP 122/50
[2019-03-13] MEDS: TEMAZEPAM 15MG CAPSULE PO PRN (20:10)
[2019-03-14] VITALS: BP 125/61
[2019-03-14] MEDS: MORPHINE SULFATE 4 MG/ML CPJ (NOT FOR IM USE) IV PRN ×5 (00:21→16:10)
[2019-03-14] MEDS: IPRATROPIUM/ALBUTEROL 0.5-3(2.5)MG/3ML NEB INH PRN ×7 (00:26→20:20)
[2019-03-14 04:00] VITALS: BP 136/57
[2019-03-14] MEDS: FUROSEMIDE 40MG/4ML VIAL IVP SCH ×2 (05:59→17:19)
[2019-03-14] MEDS: DILTIAZEM HCL 30MG TABLET PO SCH ×3 (05:59→17:37)
[2019-03-14 08:00] VITALS: BP 119/70
[2019-03-14] MEDS ORDERED: ONDANSETRON HCL 4MG/2ML INJ IV NR (09:30)
[2019-03-14] MEDS: POTASSIUM CHLORIDE 20MEQ TABLET SR PO SCH ×2 (10:06→17:22)
[2019-03-14] MEDS: PANTOPRAZOLE SODIUM 40 MG/VIAL IV SCH (10:06)
[2019-03-14] MEDS: POLYETHYLENE GLYCOL 3350 (17GM) 1 DOSE PACK PO SCH (10:06)
[2019-03-14 12:00] VITALS: BP 122/55
[2019-03-14] MEDS ORDERED: ONDANSETRON HCL 4MG/2ML INJ IV PRN (14:45)
[2019-03-14 16:00] VITALS: BP 115/58
[2019-03-14 20:00] VITALS: BP 121/62
[2019-03-14] MEDS: TEMAZEPAM 15MG CAPSULE PO PRN (21:16)
[2019-03-15] VITALS (7 sets, daily range): BP systolic 108–141; BP diastolic 40–57
[2019-03-15] MEDS: IPRATROPIUM/ALBUTEROL 0.5-3(2.5)MG/3ML NEB INH PRN ×5 (00:37→20:57)
[2019-03-15] MEDS: DILTIAZEM HCL 30MG TABLET PO SCH ×4 (06:13→17:01)
[2019-03-15] MEDS: FUROSEMIDE 40MG/4ML VIAL IVP SCH ×2 (06:13→16:52)
[2019-03-15 07:06] LABS: HEMATOCRIT. 23.9 % (36.0-48.0); HEMOGLOBIN. 7.4 g/dL (12.0-16.0); MEAN CORPUSCULAR HEMOGLOBIN 25.7 pg (28.0-32.0); MEAN CORPUSCULAR VOLUME 83.1 fL (81.0-99.0); MEAN PLATELET VOLUME 8.9 fl (7.4-10.4); PLATELET 160 x1000/uL (130-400); RED BLOOD CELL COUNT 2.87 mill/uL (4.2-5.4); RED CELL DISTRIBUTION WIDTH 21.9 % (11.6-14.6)
[2019-03-15 07:24] LABS: CHLORIDE 93 mEq/L (98-107)
[2019-03-15] MEDS: FAMOTIDINE 20MG/2ML VIAL IV SCH (08:57)
[2019-03-15] MEDS: POTASSIUM CHLORIDE 20MEQ TABLET SR PO SCH ×3 (08:58→17:01)
[2019-03-15] MEDS: POLYETHYLENE GLYCOL 3350 (17GM) 1 DOSE PACK PO SCH (08:58)
[2019-03-15] MEDS: MORPHINE SULFATE 4 MG/ML CPJ (NOT FOR IM USE) IV PRN ×3 (09:47→19:03)
[2019-03-15 13:43] LABS: ATYPICAL LYMPHOCYTES 3
[2019-03-15 13:44] LABS: PLATELET ESTIMATE NORMAL
[2019-03-16] VITALS (7 sets, daily range): BP systolic 117–164; BP diastolic 40–78
[2019-03-16] MEDS: IPRATROPIUM/ALBUTEROL 0.5-3(2.5)MG/3ML NEB INH PRN ×6 (00:46→20:17)
[2019-03-16] MEDS: MORPHINE SULFATE 4 MG/ML CPJ (NOT FOR IM USE) IV PRN ×5 (01:16→17:41)
[2019-03-16] MEDS: DILTIAZEM HCL 30MG TABLET PO SCH ×3 (01:22→13:02)
[2019-03-16] MEDS: FAMOTIDINE 20MG/2ML VIAL IV SCH ×2 (01:22→08:57)
[2019-03-16 05:47] LABS: HEMOGLOBIN. 7.2 g/dL (12.0-16.0); MEAN CORPUSCULAR HEMOGLOBIN 25.8 pg (28.0-32.0); MEAN CORPUSCULAR VOLUME 82.8 fL (81.0-99.0); MEAN PLATELET VOLUME 8.5 fl (7.4-10.4); PLATELET 165 x1000/uL (130-400); RED BLOOD CELL COUNT 2.78 mill/uL (4.2-5.4); RED CELL DISTRIBUTION WIDTH 22.1 % (11.6-14.6)
[2019-03-16] MEDS: FUROSEMIDE 40MG/4ML VIAL IVP SCH (06:01)
[2019-03-16 07:25] LABS: CHLORIDE 95 mEq/L (98-107)
[2019-03-16] MEDS: POLYETHYLENE GLYCOL 3350 (17GM) 1 DOSE PACK PO SCH (09:00)
[2019-03-16] MEDS: POTASSIUM CHLORIDE 20MEQ TABLET SR PO SCH ×2 (09:09→17:00)
[2019-03-16 10:41] LABS: PLATELET ESTIMATE NORMAL
[2019-03-16] MEDS ORDERED: FUROSEMIDE 40MG TABLET PO SCH (18:00)
== END 2019-03-16 20:35 | disposition home or self-care (01) | DRG 133 ==
LOC: ER 23:28 → 6WST 03-10 02:15 → ENRESERV 03-10 07:22 → 6WST 03-12 03:30
PROVIDERS: ADMIT Internal Medicine; ATTEND Internal Medicine
DX: J96.01 Acute respiratory failure with hypoxia (principal); E43 Unspecified severe protein-calorie malnutrition; I47.2 Ventricular tachycardia; I50.43 Acute on chronic combined systolic (congestive) and diastolic (congestive) heart failure; I27.20 Pulmonary hypertension, unspecified; I48.2 Chronic atrial fibrillation; E66.01 Morbid (severe) obesity due to excess calories; J44.1 Chronic obstructive pulmonary disease with (acute) exacerbation; I11.0 Hypertensive heart disease with heart failure; J96.02 Acute respiratory failure with hypercapnia; Z79.01 Long term (current) use of anticoagulants; I25.10 Atherosclerotic heart disease of native coronary artery without angina pectoris; J98.11 Atelectasis; D50.9 Iron deficiency anemia, unspecified; G47.33 Obstructive sleep apnea (adult) (pediatric); E87.6 Hypokalemia; K91.89 Other postprocedural complications and disorders of digestive system; Y83.8 Other surgical procedures as the cause of abnormal reaction of the patient, or of later complication, without mention of misadventure at the time of the procedure; Y92.89 Other specified places as the place of occurrence of the external cause; Z68.43 Body mass index [BMI] 50.0-59.9, adult; I25.2 Old myocardial infarction; Z86.718 Personal history of other venous thrombosis and embolism; Z90.49 Acquired absence of other specified parts of digestive tract; Z95.5 Presence of coronary angioplasty implant and graft; Z74.01 Bed confinement status; Z98.1 Arthrodesis status; Z95.828 Presence of other vascular implants and grafts; Z79.899 Other long term (current) drug therapy; Z88.6 Allergy status to analgesic agent; Z88.0 Allergy status to penicillin; Z88.8 Allergy status to other drugs, medicaments and biological substances
CPT/HCPCS: 36415; 36600; 71045; 71275; 74176; 80048; 80305; 82270; 82375; 82550; 82553; 82805; 82962; 83540; 83550; 83735; 83880; 84443; 84484; 86850; 86900; 87077; 87186; 93005; 93970; 94640; 94660; 96374; 96375; 97110; 97162; 97165; 97530; 99285; A6261; C9113; J1940; J2270; J2405; J3490; J7030; J7620; Q9967

== ENCOUNTER 2019-04-02 00:21 | Inpatient (IN) | payer MEDICAID ==
[~2019-04-02] VITALS: Ht 165.1 cm; Wt 147.5 kg
[~2019-04-02 00:21] MED LIST changes: -HYDR-4009 PO; -POLY17PO3 PO; -[UNRECOGNIZED DRUG - CODE] PO
[2019-04-02] MEDS ORDERED: ACETAMINOPHEN 500MG TABLET PO ONE (01:00)
[2019-04-02 01:42] LABS: CHLORIDE 92 mEq/L (98-107); HEMATOCRIT. 28.8 % (36.0-48.0); HEMOGLOBIN. 8.7 g/dL (12.0-16.0); MEAN CORPUSCULAR VOLUME 85.9 fL (81.0-99.0); MEAN PLATELET VOLUME 8.8 fl (7.4-10.4); PLATELET 148 x1000/uL (130-400); RED BLOOD CELL COUNT 3.35 mill/uL (4.2-5.4); RED CELL DISTRIBUTION WIDTH 22.5 % (11.6-14.6)
[2019-04-02 01:47] LABS: INR 1.2; PARTIAL THROMBOPLASTIN TIME 27.7 sec (23.4-31.0); PROTHROMBIN TIME 11.9 sec (9.6-11.0)
[2019-04-02 02:58] LABS: PLATELET ESTIMATE NORMAL
[2019-04-02] MEDS ORDERED: ACETAMINOPHEN 650MG SUPP PR ONE (03:30)
[2019-04-02 03:39] LABS: CLARITY URINE CLEAR (CLEAR); COLOR URINE YELLOW (YELLOW); KETONES URINE NEGATIVE (NEGATIVE); LEUKOCYTE ESTERASE URINE NEGATIVE (NEGATIVE); NITRITE URINE NEGATIVE (NEGATIVE); OCCULT BLOOD URINE TRACE (NEGATIVE); PROTEIN URINE NEGATIVE (NEGATIVE); SPECIFIC GRAVITY URINE 1.008 (1.005-1.030)
[2019-04-02] MEDS ORDERED: SODIUM CHLORIDE 0.9% 1,000 ML IV NR ×2 (04:15)
[2019-04-02] MEDS ORDERED: PIPERACILLIN/TAZOBACTAM 3.375GM/50ML PREMIX IV ONE (04:15)
[2019-04-02] MEDS ORDERED: PIPERACILLIN/TAZ 3.375G PREMIX 50 ML IV NR (05:00)
[2019-04-02 08:45] VITALS: BP 117/46
[2019-04-02] MEDS ORDERED: CLONIDINE 0.1MG TABLET PO PRN (08:45)
[2019-04-02] MEDS ORDERED: MAGNESIUM/ALUMINUM HYDROXIDE/SIMETHICONE 30ML UDC PO PRN (08:45)
[2019-04-02] MEDS ORDERED: ONDANSETRON HCL 4MG/2ML INJ IV PRN (08:45)
[2019-04-02] MEDS ORDERED: IPRATROPIUM/ALBUTEROL 0.5-3(2.5)MG/3ML NEB INH PRN (08:45)
[2019-04-02] MEDS ORDERED: ACETAMINOPHEN 325MG TABLET PO PRN (08:45)
[2019-04-02] MEDS ORDERED: DIPHENHYDRAMINE 50MG/ML VIAL IV PRN (08:45)
[2019-04-02 09:06] LABS: PHOSPHORUS 3.2 mg/dL (2.5-4.9)
[2019-04-02] MEDS ORDERED: LIDOCAINE HCL/PF 1% 2ML VIAL ONE ×2 (09:35→16:49)
[2019-04-02 10:17] LABS: BG BASE EXCESS 10.6 mmol/L (-2.0-2.0); BG DEOXYHEMOGLOBIN 9.9 % (0.0-5.0); BG HCO3 ACT 38.4 mmol/L (22.0-26.0); BG METHEMOGLOBIN 0.3 % (0.0-1.5); BG OXYGEN SATURATION 89.9 % (92.0-98.5); BG OXYHEMOGLOBIN 87.8 % (94.0-97.0); BG PCO2 74.1 mmHg (35.0-45.0); BG PH 7.332 (7.350-7.450); BG PO2 63.6 mmHg (75.0-100.0); BG SAMPLE SITE LEFT BRACHIAL; BG VENT MODE NASAL CANNULA
[2019-04-02 10:25] VITALS: BP 117/46
[2019-04-02] MEDS: MORPHINE SULFATE 4 MG/ML CPJ (NOT FOR IM USE) IV PRN ×3 (10:36→20:28)
[2019-04-02 12:00] VITALS: BP 98/46
[2019-04-02 16:00] VITALS: BP 101/56
[2019-04-02 16:44] VITALS: BP 101/56
[2019-04-02] MEDS ORDERED: CEFEPIME 1,000 MG in DEXTROSE 5% WATER 50 ML IV SCH (17:30)
[2019-04-02] MEDS ORDERED: VANCOMYCIN 2,000 MG in DEXT 5% WATER 500 ML IV NR (17:30)
[2019-04-02 17:37] LABS: CREATINE KINASE 49 IU/L (26-192); CREATINE KINASE MB FRACTION < 1.0 ng/mL (0.5-3.6)
[2019-04-02] MEDS: POLYETHYLENE GLYCOL 3350 (17GM) 1 DOSE PACK PO SCH (18:17)
[2019-04-02] MEDS ORDERED: DEXTROSE 50% WATER 50ML SYRINGE IV PRN (18:45)
[2019-04-02] MEDS: BUDESONIDE 0.5MG/2ML NEB HHN SCH (19:55)
[2019-04-02] MEDS: IPRATROPIUM/ALBUTEROL 0.5-3(2.5)MG/3ML NEB HHN SCH (19:55)
[2019-04-02 20:00] VITALS: BP 116/47
[2019-04-02] MEDS ORDERED: METRONIDAZOLE 500 MG PREMIX 100 ML IV SCH (22:00)
[2019-04-02] MEDS: BLOOD SUGAR DIAGNOSTIC STRIP TEST SCH (22:16)
[2019-04-02] MEDS: INSULIN LISPRO 100 UNITS/ML SUBCUT SCH (22:17)
[2019-04-03] VITALS: BP 100/54
[2019-04-03] MEDS: IPRATROPIUM/ALBUTEROL 0.5-3(2.5)MG/3ML NEB HHN SCH ×6 (00:13→21:27)
[2019-04-03] MEDS: ACETYLCYSTEINE 100MG/ML 10% VIAL 4ML INH SCH ×3 (00:13→16:28)
[2019-04-03 00:17] LABS: CREATINE KINASE 42 IU/L (26-192)
[2019-04-03 00:20] LABS: CREATINE KINASE MB FRACTION < 1.0 ng/mL (0.5-3.6)
[2019-04-03] MEDS: CLOTRIMAZOLE 1% CREAM 30GM TOP SCH ×3 (00:56→21:41)
[2019-04-03] MEDS: NYSTATIN POWDER 15GM TOP SCH ×3 (00:56→17:19)
[2019-04-03] MEDS: MORPHINE SULFATE 4 MG/ML CPJ (NOT FOR IM USE) IV PRN ×4 (01:52→21:47)
[2019-04-03 04:00] VITALS: BP 121/63
[2019-04-03] MEDS ORDERED: VANCOMYCIN 1250MG in DEXTROSE 5% WATER 250ML IV SCH (05:00)
[2019-04-03 06:03] LABS: BASOPHILS % 0.4 % (0.0-2.0); EOSINOPHILS % 0.1 % (0.0-5.0); HEMATOCRIT. 23.9 % (36.0-48.0); HEMOGLOBIN. 7.4 g/dL (12.0-16.0); LYMPHOCYTES % 7.4 % (20.0-50.0); MEAN CORPUSCULAR HEMOGLOBIN 26.4 pg (28.0-32.0); MEAN PLATELET VOLUME 9.3 fl (7.4-10.4); MONOCYTES % 6.1 % (2.0-8.0); PLATELET 116 x1000/uL (130-400); RED BLOOD CELL COUNT 2.82 mill/uL (4.2-5.4); RED CELL DISTRIBUTION WIDTH 22.3 % (11.6-14.6)
[2019-04-03 06:44] LABS: CHLORIDE 93 mEq/L (98-107)
[2019-04-03] MEDS: CEFEPIME 1,000 MG in DEXTROSE 5% WATER 50 ML IV SCH ×2 (06:50→21:41)
[2019-04-03 06:55] LABS: LDL CHOLESTEROL 46 mg/dL (5-100)
[2019-04-03 06:56] LABS: HDL CHOLESTEROL 61 mg/dL (40-59)
[2019-04-03] MEDS: BLOOD SUGAR DIAGNOSTIC STRIP TEST SCH ×4 (07:50→21:00)
[2019-04-03] MEDS: INSULIN LISPRO 100 UNITS/ML SUBCUT SCH ×4 (07:50→21:00)
[2019-04-03 08:29] VITALS: BP 111/40
[2019-04-03] MEDS ORDERED: POTASSIUM CHLORIDE 20MEQ TABLET SR PO SCH (08:30)
[2019-04-03] MEDS: BUDESONIDE 0.5MG/2ML NEB HHN SCH ×3 (08:45→21:27)
[2019-04-03] MEDS: POLYETHYLENE GLYCOL 3350 (17GM) 1 DOSE PACK PO SCH (09:07)
[2019-04-03 09:28] LABS: PLATELET ESTIMATE DECREASED
[2019-04-03] MEDS ORDERED: POTASSIUM CHLORIDE INJ 40 MEQ in DEXT 5% WATER 250 ML IV ONE (09:30)
[2019-04-03] MEDS ORDERED: SIMETHICONE 80MG TABLET CHEW PO PRN (11:00)
[2019-04-03 11:49] VITALS: BP 100/53
[2019-04-03] MEDS: METOCLOPRAMIDE HCL 10MG/2ML VIAL IV SCH ×2 (13:59→21:46)
[2019-04-03 15:58] VITALS: BP 97/61
[2019-04-03] MEDS: VANCOMYCIN 1250MG in DEXTROSE 5% WATER 250ML IV SCH (18:53)
[2019-04-03] MEDS: FUROSEMIDE 40MG/4ML VIAL IVP SCH (19:32)
[2019-04-03 20:00] VITALS: BP 122/53
[2019-04-04] VITALS: BP 112/49
[2019-04-04] MEDS: ACETYLCYSTEINE 100MG/ML 10% VIAL 4ML INH SCH ×3 (00:39→16:27)
[2019-04-04] MEDS: IPRATROPIUM/ALBUTEROL 0.5-3(2.5)MG/3ML NEB HHN SCH ×6 (00:39→21:28)
[2019-04-04] MEDS: MORPHINE SULFATE 4 MG/ML CPJ (NOT FOR IM USE) IV PRN ×4 (02:55→21:11)
[2019-04-04 04:00] VITALS: BP 115/61
[2019-04-04] MEDS: METOCLOPRAMIDE HCL 10MG/2ML VIAL IV SCH ×3 (05:42→21:11)
[2019-04-04] MEDS: VANCOMYCIN 1250MG in DEXTROSE 5% WATER 250ML IV SCH (05:43)
[2019-04-04] MEDS: CEFEPIME 1,000 MG in DEXTROSE 5% WATER 50 ML IV SCH ×2 (05:44→18:24)
[2019-04-04 05:59] LABS: BASOPHILS % 0.3 % (0.0-2.0); EOSINOPHILS % 0.7 % (0.0-5.0); HEMATOCRIT. 22.6 % (36.0-48.0); HEMOGLOBIN. 7.1 g/dL (12.0-16.0); LYMPHOCYTES % 11.5 % (20.0-50.0); MEAN CORPUSCULAR HEMOGLOBIN 26.7 pg (28.0-32.0); MEAN PLATELET VOLUME 9.5 fl (7.4-10.4); MONOCYTES % 7.1 % (2.0-8.0); NEUTROPHILS % 80.4 % (40.0-76.0); PLATELET 118 x1000/uL (130-400); RED BLOOD CELL COUNT 2.66 mill/uL (4.2-5.4); RED CELL DISTRIBUTION WIDTH 22.3 % (11.6-14.6)
[2019-04-04] MEDS: BLOOD SUGAR DIAGNOSTIC STRIP TEST SCH ×4 (06:26→21:00)
[2019-04-04 06:48] LABS: CHLORIDE 91 mEq/L (98-107)
[2019-04-04 06:54] LABS: PHOSPHORUS 2.1 mg/dL (2.5-4.9)
[2019-04-04 06:56] LABS: VANCOMYCIN TROUGH 27.4 ug/mL (5.0-10.0)
[2019-04-04] MEDS: INSULIN LISPRO 100 UNITS/ML SUBCUT SCH ×4 (07:49→21:00)
[2019-04-04 08:20] VITALS: BP 117/58
[2019-04-04] MEDS: BUDESONIDE 0.5MG/2ML NEB HHN SCH ×3 (08:49→21:22)
[2019-04-04] MEDS: POLYETHYLENE GLYCOL 3350 (17GM) 1 DOSE PACK PO SCH (10:29)
[2019-04-04] MEDS: CLOTRIMAZOLE 1% CREAM 30GM TOP SCH ×2 (10:29→21:13)
[2019-04-04] MEDS: NYSTATIN POWDER 15GM TOP SCH ×2 (10:30→17:00)
[2019-04-04] MEDS: FUROSEMIDE 40MG/4ML VIAL IVP SCH (10:30)
[2019-04-04 12:36] VITALS: BP 119/46
[2019-04-04] MEDS: POTASSIUM CHLORIDE 20MEQ TABLET SR PO SCH ×2 (13:30→16:54)
[2019-04-04 17:20] VITALS: BP 115/77
[2019-04-04 20:00] VITALS: BP 106/44
[2019-04-04] MEDS ORDERED: POTASSIUM CHLORIDE 20MEQ TABLET SR PO NR (23:45)
[2019-04-05] VITALS: BP 111/48
[2019-04-05] MEDS: ACETYLCYSTEINE 100MG/ML 10% VIAL 4ML INH SCH ×4 (01:00→23:29)
[2019-04-05] MEDS: IPRATROPIUM/ALBUTEROL 0.5-3(2.5)MG/3ML NEB HHN SCH ×7 (01:00→23:29)
[2019-04-05] MEDS: MORPHINE SULFATE 4 MG/ML CPJ (NOT FOR IM USE) IV PRN ×6 (01:22→23:23)
[2019-04-05 04:00] VITALS: BP 124/63
[2019-04-05] MEDS: VANCOMYCIN 1250MG in DEXTROSE 5% WATER 250ML IV SCH (05:27)
[2019-04-05] MEDS: CEFEPIME 1,000 MG in DEXTROSE 5% WATER 50 ML IV SCH ×2 (05:27→19:06)
[2019-04-05] MEDS: METOCLOPRAMIDE HCL 10MG/2ML VIAL IV SCH ×3 (05:28→23:23)
[2019-04-05 06:30] LABS: BASOPHILS % 0.5 % (0.0-2.0); EOSINOPHILS % 0.7 % (0.0-5.0); HEMATOCRIT. 23.4 % (36.0-48.0); HEMOGLOBIN. 7.3 g/dL (12.0-16.0); LYMPHOCYTES % 8.4 % (20.0-50.0); MEAN CORPUSCULAR HEMOGLOBIN 26.7 pg (28.0-32.0); MEAN CORPUSCULAR VOLUME 85.7 fL (81.0-99.0); MEAN PLATELET VOLUME 9.2 fl (7.4-10.4); NEUTROPHILS % 81.4 % (40.0-76.0); PLATELET 125 x1000/uL (130-400); RED BLOOD CELL COUNT 2.73 mill/uL (4.2-5.4); RED CELL DISTRIBUTION WIDTH 22.1 % (11.6-14.6)
[2019-04-05 06:45] LABS: CHLORIDE 93 mEq/L (98-107)
[2019-04-05] MEDS: BLOOD SUGAR DIAGNOSTIC STRIP TEST SCH ×4 (06:53→21:52)
[2019-04-05] MEDS: INSULIN LISPRO 100 UNITS/ML SUBCUT SCH ×4 (06:53→21:00)
[2019-04-05] MEDS: BUDESONIDE 0.5MG/2ML NEB HHN SCH (08:42)
[2019-04-05] MEDS: FUROSEMIDE 40MG/4ML VIAL IVP SCH (10:02)
[2019-04-05] MEDS: POLYETHYLENE GLYCOL 3350 (17GM) 1 DOSE PACK PO SCH (10:03)
[2019-04-05] MEDS: CLOTRIMAZOLE 1% CREAM 30GM TOP SCH (10:04)
[2019-04-05] MEDS: NYSTATIN POWDER 15GM TOP SCH ×2 (10:04→17:00)
[2019-04-05 11:55] VITALS: BP 129/69
[2019-04-05 15:36] VITALS: BP 143/59
[2019-04-05 20:00] VITALS: BP 108/33
[2019-04-06] VITALS: BP 99/59
[2019-04-06] MEDS: CLOTRIMAZOLE 1% CREAM 30GM TOP SCH ×3 (01:07→21:39)
[2019-04-06] MEDS: VANCOMYCIN 1250MG in DEXTROSE 5% WATER 250ML IV SCH ×2 (01:07→17:29)
[2019-04-06] MEDS: MORPHINE SULFATE 4 MG/ML CPJ (NOT FOR IM USE) IV PRN ×4 (03:29→21:50)
[2019-04-06 04:00] VITALS: BP 122/60
[2019-04-06] MEDS: IPRATROPIUM/ALBUTEROL 0.5-3(2.5)MG/3ML NEB HHN SCH ×5 (04:00→21:05)
[2019-04-06 06:36] LABS: HEMATOCRIT. 22.8 % (36.0-48.0); HEMOGLOBIN. 7.1 g/dL (12.0-16.0); MEAN CORPUSCULAR HEMOGLOBIN 26.7 pg (28.0-32.0); MEAN CORPUSCULAR VOLUME 85.3 fL (81.0-99.0); MEAN PLATELET VOLUME 8.8 fl (7.4-10.4); PLATELET 129 x1000/uL (130-400); RED BLOOD CELL COUNT 2.68 mill/uL (4.2-5.4)
[2019-04-06] MEDS: METOCLOPRAMIDE HCL 10MG/2ML VIAL IV SCH ×3 (06:42→21:39)
[2019-04-06] MEDS: INSULIN LISPRO 100 UNITS/ML SUBCUT SCH ×4 (06:49→21:00)
[2019-04-06] MEDS: BLOOD SUGAR DIAGNOSTIC STRIP TEST SCH ×4 (06:49→21:40)
[2019-04-06 07:06] LABS: CHLORIDE 93 mEq/L (98-107)
[2019-04-06] MEDS: ACETYLCYSTEINE 100MG/ML 10% VIAL 4ML INH SCH ×2 (07:50→15:12)
[2019-04-06 08:00] VITALS: BP 136/62
[2019-04-06] MEDS: FUROSEMIDE 40MG/4ML VIAL IVP SCH (08:54)
[2019-04-06] MEDS: NYSTATIN POWDER 15GM TOP SCH ×2 (08:55→17:29)
[2019-04-06] MEDS: POLYETHYLENE GLYCOL 3350 (17GM) 1 DOSE PACK PO SCH (09:02)
[2019-04-06] MEDS: POTASSIUM CHLORIDE 20MEQ TABLET SR PO NR ×2 (11:48→11:57)
[2019-04-06 12:00] VITALS: BP 120/58
[2019-04-06 13:32] LABS: PHOSPHORUS 2.4 mg/dL (2.5-4.9)
[2019-04-06 13:54] LABS: PLATELET ESTIMATE NORMAL
[2019-04-06 16:00] VITALS: BP 115/56
[2019-04-06] MEDS: CEFEPIME 1,000 MG in DEXTROSE 5% WATER 50 ML IV SCH (18:49)
[2019-04-06 20:00] VITALS: BP 118/60
[2019-04-07] VITALS: BP 144/73
[2019-04-07] MEDS: IPRATROPIUM/ALBUTEROL 0.5-3(2.5)MG/3ML NEB HHN SCH ×5 (01:18→17:40)
[2019-04-07] MEDS: ACETYLCYSTEINE 100MG/ML 10% VIAL 4ML INH SCH ×3 (01:18→17:40)
[2019-04-07] MEDS: MORPHINE SULFATE 4 MG/ML CPJ (NOT FOR IM USE) IV PRN (02:07)
[2019-04-07 04:00] VITALS: BP 123/63
[2019-04-07] MEDS: CEFEPIME 1,000 MG in DEXTROSE 5% WATER 50 ML IV SCH ×2 (05:54→18:08)
[2019-04-07] MEDS: METOCLOPRAMIDE HCL 10MG/2ML VIAL IV SCH (05:55)
[2019-04-07] MEDS: BLOOD SUGAR DIAGNOSTIC STRIP TEST SCH ×3 (07:09→16:50)
[2019-04-07] MEDS: INSULIN LISPRO 100 UNITS/ML SUBCUT SCH ×3 (07:50→16:50)
[2019-04-07] MEDS: POLYETHYLENE GLYCOL 3350 (17GM) 1 DOSE PACK PO SCH (09:00)
[2019-04-07] MEDS: FUROSEMIDE 40MG/4ML VIAL IVP SCH (09:46)
[2019-04-07 09:47] LABS: BASOPHILS % 0.4 % (0.0-2.0); EOSINOPHILS % 2.4 % (0.0-5.0); HEMATOCRIT. 23.7 % (36.0-48.0); HEMOGLOBIN. 7.4 g/dL (12.0-16.0); LYMPHOCYTES % 7.8 % (20.0-50.0); MEAN CORPUSCULAR HEMOGLOBIN 26.8 pg (28.0-32.0); MEAN CORPUSCULAR VOLUME 85.8 fL (81.0-99.0); MEAN PLATELET VOLUME 8.4 fl (7.4-10.4); MONOCYTES % 9.9 % (2.0-8.0); NEUTROPHILS % 79.5 % (40.0-76.0); PLATELET 153 x1000/uL (130-400); RED BLOOD CELL COUNT 2.76 mill/uL (4.2-5.4); RED CELL DISTRIBUTION WIDTH 22.1 % (11.6-14.6)
[2019-04-07] MEDS: CLOTRIMAZOLE 1% CREAM 30GM TOP SCH (09:52)
[2019-04-07] MEDS: NYSTATIN POWDER 15GM TOP SCH ×2 (09:52→18:08)
[2019-04-07 10:05] LABS: CHLORIDE 95 mEq/L (98-107)
[2019-04-07] MEDS ORDERED: MORPHINE SULFATE 4 MG/ML CPJ (NOT FOR IM USE) IV PRN (11:00)
[2019-04-07] MEDS: VANCOMYCIN 1250MG in DEXTROSE 5% WATER 250ML IV SCH (11:21)
[2019-04-07 12:00] VITALS: BP 114/56
[2019-04-07 16:00] VITALS: BP 130/57
[2019-04-07] MEDS ORDERED: SODIUM CHLORIDE 3% FOR INH 4ML UD NEB INH SCH (16:00)
[2019-04-07] MEDS ORDERED: HYDROCODONE/ACETAMINOPHEN 5/325MG TABLET PO PRN (17:15)
[2019-04-07 17:46] VITALS: BP 130/57
== END 2019-04-07 19:40 | disposition home or self-care (01) | DRG 720 ==
LOC: ER 00:21 → 6WST 04:12 → EDBEDREQTM 04:13 → EDBEDREQ 04:13 → ENRESERV 07:00
PROVIDERS: ADMIT Internal Medicine; ATTEND Internal Medicine
PROC: 5A09357 Assistance with Respiratory Ventilation, Less than 24 Consecutive Hours, Continuous Positive Airway Pressure (ICD-10-PCS; principal; 2019-04-03)
PROC: 5A09357 Assistance with Respiratory Ventilation, Less than 24 Consecutive Hours, Continuous Positive Airway Pressure (ICD-10-PCS; 2019-04-05)
PROC: 5A09357 Assistance with Respiratory Ventilation, Less than 24 Consecutive Hours, Continuous Positive Airway Pressure (ICD-10-PCS; 2019-04-07)
DX: A41.9 Sepsis, unspecified organism (principal); J96.02 Acute respiratory failure with hypercapnia; I50.23 Acute on chronic systolic (congestive) heart failure; J18.9 Pneumonia, unspecified organism; D69.6 Thrombocytopenia, unspecified; E87.1 Hypo-osmolality and hyponatremia; I27.20 Pulmonary hypertension, unspecified; I11.0 Hypertensive heart disease with heart failure; E66.2 Morbid (severe) obesity with alveolar hypoventilation; I49.3 Ventricular premature depolarization; I48.1 Persistent atrial fibrillation; E87.6 Hypokalemia; D63.8 Anemia in other chronic diseases classified elsewhere; I25.10 Atherosclerotic heart disease of native coronary artery without angina pectoris; I48.2 Chronic atrial fibrillation; D50.9 Iron deficiency anemia, unspecified; M48.02 Spinal stenosis, cervical region; K76.0 Fatty (change of) liver, not elsewhere classified; K44.9 Diaphragmatic hernia without obstruction or gangrene; E11.9 Type 2 diabetes mellitus without complications; F17.210 Nicotine dependence, cigarettes, uncomplicated; G47.33 Obstructive sleep apnea (adult) (pediatric); G89.29 Other chronic pain; J44.0 Chronic obstructive pulmonary disease with (acute) lower respiratory infection; R65.20 Severe sepsis without septic shock; K80.20 Calculus of gallbladder without cholecystitis without obstruction; R16.2 Hepatomegaly with splenomegaly, not elsewhere classified; X58.XXXA Exposure to other specified factors, initial encounter; Y93.89 Activity, other specified; Y92.89 Other specified places as the place of occurrence of the external cause; Z74.01 Bed confinement status; Y99.8 Other external cause status; Z79.01 Long term (current) use of anticoagulants; Z86.14 Personal history of Methicillin resistant Staphylococcus aureus infection; Z86.718 Personal history of other venous thrombosis and embolism; Z87.01 Personal history of pneumonia (recurrent); Z95.5 Presence of coronary angioplasty implant and graft; Z95.828 Presence of other vascular implants and grafts; Z99.3 Dependence on wheelchair; Z99.81 Dependence on supplemental oxygen; Z88.0 Allergy status to penicillin; Z88.6 Allergy status to analgesic agent; Z88.8 Allergy status to other drugs, medicaments and biological substances; I25.2 Old myocardial infarction; Z79.899 Other long term (current) drug therapy; Z68.43 Body mass index [BMI] 50.0-59.9, adult
CPT/HCPCS: 36415; 36600; 71045; 74018; 76700; 80048; 80061; 80076; 80202; 82375; 82550; 82553; 82805; 82962; 83605; 83735; 83880; 84100; 84443; 84484; 86850; 86900; 93005; 93970; 94640; 94667; 96365; 97162; 97164; 97530; 99291; A6261; C1893; J0692; J1940; J2270; J2543; J2765; J3370; J3480; J3490; J7060; J7608; J7620; J7626

== ENCOUNTER 2019-04-23 23:24 | Inpatient (IN) | payer MEDICAID ==
[~2019-04-23] VITALS: Ht 165.1 cm; Wt 154.7 kg
[2019-04-24] VITALS (10 sets, daily range): BP systolic 109–134; BP diastolic 62–92
[2019-04-24] MEDS ORDERED: ONDANSETRON HCL 4MG/2ML INJ IV STA (00:04)
[2019-04-24] MEDS ORDERED: MORPHINE SULFATE 4 MG/ML CPJ (NOT FOR IM USE) IV STA (00:04)
[2019-04-24 00:31] LABS: CHLORIDE 99 mEq/L (98-107)
[2019-04-24 00:33] LABS: INR 1.3; PROTHROMBIN TIME 13.2 sec (9.6-11.0)
[2019-04-24 00:35] LABS: HEMATOCRIT. 27.1 % (36.0-48.0); HEMOGLOBIN. 8.3 g/dL (12.0-16.0); MEAN CORPUSCULAR HEMOGLOBIN 26.2 pg (28.0-32.0); MEAN CORPUSCULAR VOLUME 85.8 fL (81.0-99.0); MEAN PLATELET VOLUME 8.8 fl (7.4-10.4); PLATELET 170 x1000/uL (130-400); RED BLOOD CELL COUNT 3.15 mill/uL (4.2-5.4); RED CELL DISTRIBUTION WIDTH 20.2 % (11.6-14.6)
[2019-04-24 00:38] LABS: BG BASE EXCESS 7.8 mmol/L (-2.0-2.0); BG CARBOXYHEMOGLOBIN 1.2 % (0.5-1.5); BG DEOXYHEMOGLOBIN 17.5 % (0.0-5.0); BG FRACTION INSPIRED OXYGEN 40; BG HCO3 ACT 36.2 mmol/L (22.0-26.0); BG METHEMOGLOBIN 0.2 % (0.0-1.5); BG OXYGEN SATURATION 82.3 % (92.0-98.5); BG OXYHEMOGLOBIN 81.1 % (94.0-97.0); BG PCO2 74.7 mmHg (35.0-45.0); BG PH 7.303 (7.350-7.450); BG PO2 51.9 mmHg (75.0-100.0); BG SAMPLE SITE RIGHT RADIAL; BG TOTAL HEMOGLOBIN 10.7 g/dL (12.0-18.0); BG VENT MODE NASAL CANNULA
[2019-04-24 02:54] LABS: PLATELET ESTIMATE NORMAL
[2019-04-24] MEDS ORDERED: IOHEXOL-350 100 ML BOTTLE ONE (04:04)
[2019-04-24] MEDS ORDERED: ALPRAZOLAM 0.5 MG TABLET PO PRN (11:30)
[2019-04-24] MEDS ORDERED: FUROSEMIDE 40MG/4ML VIAL IVP SCH (11:30)
[2019-04-24] MEDS: IPRATROPIUM/ALBUTEROL 0.5-3(2.5)MG/3ML NEB HHN PRN (11:49)
[2019-04-24 11:55] LABS: BG BASE EXCESS 5.8 mmol/L (-2.0-2.0); BG CARBOXYHEMOGLOBIN 0.9 % (0.5-1.5); BG DEOXYHEMOGLOBIN 14.7 % (0.0-5.0); BG METHEMOGLOBIN 0.3 % (0.0-1.5); BG OXYGEN SATURATION 85.1 % (92.0-98.5); BG OXYHEMOGLOBIN 84.1 % (94.0-97.0); BG PCO2 75.5 mmHg (35.0-45.0); BG PH 7.272 (7.350-7.450); BG PO2 56.1 mmHg (75.0-100.0); BG SAMPLE SITE RIGHT RADIAL; BG VENT MODE NASAL CANNULA
[2019-04-24] MEDS ORDERED: VANCOMYCIN 2,000 MG in DEXT 5% WATER 500 ML IV NR (13:00)
[2019-04-24] MEDS ORDERED: PIPERACILLIN/TAZOBACTAM 2.25 G in DEXTROSE 5% WATER 50 ML IV SCH (14:00)
[2019-04-24] MEDS: ENOXAPARIN 40MG/0.4ML SYR SUBCUT SCH (14:44)
[2019-04-24] MEDS: ACETYLCYSTEINE 100MG/ML 10% VIAL 4ML INH SCH ×2 (15:02→19:54)
[2019-04-24] MEDS: IPRATROPIUM/ALBUTEROL 0.5-3(2.5)MG/3ML NEB HHN SCH ×2 (15:02→19:54)
[2019-04-24 15:48] LABS: HEMATOCRIT. 25.5 % (36.0-48.0); HEMOGLOBIN. 7.7 g/dL (12.0-16.0); MEAN CORPUSCULAR HEMOGLOBIN 26.1 pg (28.0-32.0); MEAN CORPUSCULAR VOLUME 86.7 fL (81.0-99.0); MEAN PLATELET VOLUME 8.9 fl (7.4-10.4); PLATELET 165 x1000/uL (130-400); RED BLOOD CELL COUNT 2.94 mill/uL (4.2-5.4); RED CELL DISTRIBUTION WIDTH 20.1 % (11.6-14.6)
[2019-04-24 15:56] LABS: CHLORIDE 97 mEq/L (98-107)
[2019-04-24] MEDS: PIPERACILLIN/TAZ 3.375G PREMIX 50 ML IV SCH ×2 (16:29→21:38)
[2019-04-24] MEDS: HYDROCODONE/ACETAMINOPHEN 5/325MG TABLET PO PRN (17:21)
[2019-04-24] MEDS: FUROSEMIDE 40MG/4ML VIAL IVP SCH (17:21)
[2019-04-24 20:35] LABS: PLATELET ESTIMATE NORMAL
[2019-04-24 20:50] LABS: CLARITY URINE CLOUDY (CLEAR); COLOR URINE YELLOW (YELLOW); KETONES URINE NEGATIVE (NEGATIVE); LEUKOCYTE ESTERASE URINE NEGATIVE (NEGATIVE); NITRITE URINE NEGATIVE (NEGATIVE); OCCULT BLOOD URINE 1+ (NEGATIVE); PROTEIN URINE TRACE (NEGATIVE); SPECIFIC GRAVITY URINE 1.023 (1.005-1.030); UROBILINOGEN URINE 0.2 E.U./dL (0.2-1.0)
[2019-04-24] MEDS: DILTIAZEM HCL 60MG TABLET PO SCH (21:41)
[2019-04-24] MEDS: NYSTATIN POWDER 15GM TOP SCH (21:45)
[2019-04-25] VITALS (12 sets, daily range): BP systolic 101–143; BP diastolic 41–117
[2019-04-25] MEDS: HYDROCODONE/ACETAMINOPHEN 5/325MG TABLET PO PRN ×3 (00:33→19:43)
[2019-04-25] MEDS: IPRATROPIUM/ALBUTEROL 0.5-3(2.5)MG/3ML NEB HHN SCH ×7 (00:34→23:46)
[2019-04-25] MEDS: PIPERACILLIN/TAZ 3.375G PREMIX 50 ML IV SCH ×4 (05:11→21:36)
[2019-04-25] MEDS: DILTIAZEM HCL 60MG TABLET PO SCH ×3 (05:12→21:14)
[2019-04-25] MEDS: FUROSEMIDE 40MG/4ML VIAL IVP SCH ×2 (06:17→17:02)
[2019-04-25 07:01] LABS: BASOPHILS % 0.6 % (0.0-2.0); EOSINOPHILS % 1.3 % (0.0-5.0); HEMATOCRIT. 23.7 % (36.0-48.0); HEMOGLOBIN. 7.4 g/dL (12.0-16.0); LYMPHOCYTES % 9.6 % (20.0-50.0); MEAN CORPUSCULAR HEMOGLOBIN 26.3 pg (28.0-32.0); MEAN CORPUSCULAR VOLUME 84.6 fL (81.0-99.0); MEAN PLATELET VOLUME 9.1 fl (7.4-10.4); MONOCYTES % 12.9 % (2.0-8.0); NEUTROPHILS % 75.6 % (40.0-76.0); PLATELET 178 x1000/uL (130-400); RED CELL DISTRIBUTION WIDTH 19.7 % (11.6-14.6)
[2019-04-25 07:13] LABS: CHLORIDE 96 mEq/L (98-107)
[2019-04-25] MEDS ORDERED: VANCOMYCIN 1 G PREMIX 200 ML IV SCH (08:00)
[2019-04-25] MEDS: NYSTATIN POWDER 15GM TOP SCH ×3 (08:33→17:02)
[2019-04-25] MEDS: ENOXAPARIN 40MG/0.4ML SYR SUBCUT SCH ×2 (08:33→21:16)
[2019-04-25] MEDS: ACETYLCYSTEINE 100MG/ML 10% VIAL 4ML INH SCH ×3 (09:28→23:47)
[2019-04-25 10:56] LABS: BG BILEVEL POS AIRWAY PRESSURE 18/5; BG CARBOXYHEMOGLOBIN 0.2 % (0.5-1.5); BG DEOXYHEMOGLOBIN 3.9 % (0.0-5.0); BG FRACTION INSPIRED OXYGEN 50; BG HCO3 ACT 33.7 mmol/L (22.0-26.0); BG METHEMOGLOBIN 1.6 % (0.0-1.5); BG OXYHEMOGLOBIN 94.3 % (94.0-97.0); BG PCO2 62.2 mmHg (35.0-45.0); BG PH 7.352 (7.350-7.450); BG PO2 90.7 mmHg (75.0-100.0); BG SAMPLE SITE RIGHT RADIAL; BG TOTAL HEMOGLOBIN 8.6 g/dL (12.0-18.0); BG VENT MODE MASK - BIPAP
[2019-04-25] MEDS: OMEPRAZOLE 20MG CAPSULE EXTENDED RELEASE PO SCH (11:23)
[2019-04-25] MEDS ORDERED: LIDOCAINE HCL/PF 1% 2ML VIAL ONE (13:08)
[2019-04-26] VITALS (12 sets, daily range): BP systolic 106–153; BP diastolic 46–109
[2019-04-26] MEDS ORDERED: VANCOMYCIN 1250MG in DEXTROSE 5% WATER 250ML IV SCH (02:00)
[2019-04-26] MEDS: HYDROCODONE/ACETAMINOPHEN 5/325MG TABLET PO PRN ×4 (02:08→23:21)
[2019-04-26] MEDS: IPRATROPIUM/ALBUTEROL 0.5-3(2.5)MG/3ML NEB HHN SCH ×5 (03:45→20:54)
[2019-04-26] MEDS: PIPERACILLIN/TAZ 3.375G PREMIX 50 ML IV SCH ×4 (03:51→23:06)
[2019-04-26] MEDS: DILTIAZEM HCL 60MG TABLET PO SCH ×3 (06:00→23:07)
[2019-04-26] MEDS: FUROSEMIDE 40MG/4ML VIAL IVP SCH ×2 (06:28→17:20)
[2019-04-26] MEDS: OMEPRAZOLE 20MG CAPSULE EXTENDED RELEASE PO SCH (06:29)
[2019-04-26 07:32] LABS: MEAN CORPUSCULAR HEMOGLOBIN 26.5 pg (28.0-32.0); MEAN CORPUSCULAR VOLUME 83.8 fL (81.0-99.0); MEAN PLATELET VOLUME 8.9 fl (7.4-10.4); PLATELET 167 x1000/uL (130-400); RED BLOOD CELL COUNT 2.66 mill/uL (4.2-5.4); RED CELL DISTRIBUTION WIDTH 20.3 % (11.6-14.6)
[2019-04-26 07:47] LABS: HEMATOCRIT. 22.3 % (36.0-48.0)
[2019-04-26] MEDS: ACETYLCYSTEINE 100MG/ML 10% VIAL 4ML INH SCH (07:52)
[2019-04-26 08:21] LABS: CHLORIDE 94 mEq/L (98-107)
[2019-04-26] MEDS: NYSTATIN POWDER 15GM TOP SCH ×3 (08:24→17:20)
[2019-04-26] MEDS: ENOXAPARIN 40MG/0.4ML SYR SUBCUT SCH ×2 (08:25→23:07)
[2019-04-26 10:15] LABS: PLATELET ESTIMATE NORMAL
[2019-04-26 10:40] LABS: BG BASE EXCESS 6.8 mmol/L (-2.0-2.0); BG BILEVEL POS AIRWAY PRESSURE 18/5; BG CARBOXYHEMOGLOBIN 0.5 % (0.5-1.5); BG DEOXYHEMOGLOBIN 1.8 % (0.0-5.0); BG FRACTION INSPIRED OXYGEN 50; BG HCO3 ACT 33.3 mmol/L (22.0-26.0); BG METHEMOGLOBIN 0.6 % (0.0-1.5); BG OXYGEN SATURATION 98.2 % (92.0-98.5); BG OXYHEMOGLOBIN 97.1 % (94.0-97.0); BG PCO2 60.6 mmHg (35.0-45.0); BG PH 7.358 (7.350-7.450); BG PO2 117.3 mmHg (75.0-100.0); BG SAMPLE SITE RIGHT RADIAL; BG VENT MODE MASK - BIPAP; BG VENT RATE 18 set
[2019-04-26] MEDS ORDERED: LIDOCAINE HCL/PF 1% 2ML VIAL ONE (13:07)
[2019-04-27] VITALS (12 sets, daily range): BP systolic 103–137; BP diastolic 46–91
[2019-04-27] MEDS: ACETYLCYSTEINE 100MG/ML 10% VIAL 4ML INH SCH ×3 (01:24→16:40)
[2019-04-27] MEDS: IPRATROPIUM/ALBUTEROL 0.5-3(2.5)MG/3ML NEB HHN SCH ×5 (01:24→20:18)
[2019-04-27] MEDS: PIPERACILLIN/TAZ 3.375G PREMIX 50 ML IV SCH ×5 (02:48→21:49)
[2019-04-27 06:44] LABS: HEMATOCRIT. 22.6 % (36.0-48.0); HEMOGLOBIN. 7.2 g/dL (12.0-16.0); MEAN CORPUSCULAR HEMOGLOBIN 26.6 pg (28.0-32.0); MEAN CORPUSCULAR VOLUME 84.1 fL (81.0-99.0); MEAN PLATELET VOLUME 8.7 fl (7.4-10.4); PLATELET 166 x1000/uL (130-400); RED BLOOD CELL COUNT 2.69 mill/uL (4.2-5.4); RED CELL DISTRIBUTION WIDTH 19.8 % (11.6-14.6)
[2019-04-27] MEDS: DILTIAZEM HCL 60MG TABLET PO SCH ×3 (06:46→21:48)
[2019-04-27] MEDS: OMEPRAZOLE 20MG CAPSULE EXTENDED RELEASE PO SCH (06:46)
[2019-04-27] MEDS: FUROSEMIDE 40MG/4ML VIAL IVP SCH ×2 (06:46→17:33)
[2019-04-27 07:13] LABS: CHLORIDE 94 mEq/L (98-107)
[2019-04-27] MEDS: ENOXAPARIN 40MG/0.4ML SYR SUBCUT SCH ×2 (08:54→21:50)
[2019-04-27] MEDS: HYDROCODONE/ACETAMINOPHEN 5/325MG TABLET PO PRN ×3 (08:55→20:23)
[2019-04-27] MEDS: NYSTATIN POWDER 15GM TOP SCH ×3 (08:55→17:33)
[2019-04-27] MEDS ORDERED: FENTANYL CITRATE/PF 50MCG/ML 2ML VIAL IV ONE (11:15)
[2019-04-27] MEDS ORDERED: RACEPINEPHRINE 2.25% 0.5ML NEB VIAL HHN ONE (11:15)
[2019-04-27] MEDS ORDERED: MIDAZOLAM HCL 2 MG/2 ML VIAL IV ONE (11:15)
[2019-04-27] MEDS ORDERED: MIDAZOLAM HCL 2 MG/2 ML VIAL IV SCH (12:01)
[2019-04-27] MEDS ORDERED: FENTANYL CITRATE/PF 50MCG/ML 2ML VIAL IV SCH ×2 (12:02→12:09)
[2019-04-27] MEDS ORDERED: RACEPINEPHRINE 2.25% 0.5ML NEB VIAL HHN SCH (12:02)
[2019-04-27] MEDS ORDERED: TETRACAINE/BENZOCAINE/BUTAMBEN 20 GM SPRAY MM SCH (12:30)
[2019-04-27] MEDS: VANCOMYCIN 1250MG in DEXTROSE 5% WATER 250ML IV SCH (12:42)
[2019-04-27] MEDS ORDERED: LIDOCAINE HCL/PF 1% 2ML VIAL INH STA (17:04)
[2019-04-27] MEDS ORDERED: VANCOMYCIN 1250MG in DEXTROSE 5% WATER 250ML IV SCH (19:00)
[2019-04-28] VITALS (15 sets, daily range): BP systolic 96–153; BP diastolic 43–87
[2019-04-28] MEDS: IPRATROPIUM/ALBUTEROL 0.5-3(2.5)MG/3ML NEB HHN SCH ×6 (00:33→20:27)
[2019-04-28] MEDS: ACETYLCYSTEINE 100MG/ML 10% VIAL 4ML INH SCH ×3 (00:33→16:25)
[2019-04-28] MEDS: HYDROCODONE/ACETAMINOPHEN 5/325MG TABLET PO PRN ×3 (00:51→17:27)
[2019-04-28] MEDS: PIPERACILLIN/TAZ 3.375G PREMIX 50 ML IV SCH ×4 (05:44→22:29)
[2019-04-28] MEDS: FUROSEMIDE 40MG/4ML VIAL IVP SCH ×2 (05:44→17:07)
[2019-04-28] MEDS: DILTIAZEM HCL 60MG TABLET PO SCH ×3 (05:45→22:24)
[2019-04-28] MEDS: OMEPRAZOLE 20MG CAPSULE EXTENDED RELEASE PO SCH (05:45)
[2019-04-28 06:35] LABS: HEMATOCRIT. 22.3 % (36.0-48.0); MEAN CORPUSCULAR HEMOGLOBIN 26.3 pg (28.0-32.0); MEAN CORPUSCULAR VOLUME 83.5 fL (81.0-99.0); MEAN PLATELET VOLUME 8.5 fl (7.4-10.4); PLATELET 150 x1000/uL (130-400); RED BLOOD CELL COUNT 2.67 mill/uL (4.2-5.4); RED CELL DISTRIBUTION WIDTH 19.8 % (11.6-14.6)
[2019-04-28 07:11] LABS: CHLORIDE 94 mEq/L (98-107)
[2019-04-28 08:12] LABS: BG BASE EXCESS 7.2 mmol/L (-2.0-2.0); BG BILEVEL POS AIRWAY PRESSURE ST=15/5; BG CARBOXYHEMOGLOBIN 1.1 % (0.5-1.5); BG DEOXYHEMOGLOBIN 1.9 % (0.0-5.0); BG FRACTION INSPIRED OXYGEN 50; BG HCO3 ACT 33.7 mmol/L (22.0-26.0); BG METHEMOGLOBIN 0.3 % (0.0-1.5); BG OXYGEN SATURATION 98.1 % (92.0-98.5); BG OXYHEMOGLOBIN 96.7 % (94.0-97.0); BG PCO2 60.8 mmHg (35.0-45.0); BG PH 7.361 (7.350-7.450); BG PO2 107.5 mmHg (75.0-100.0); BG PRESSURE SUPPORT 10; BG SAMPLE SITE RIGHT RADIAL; BG TOTAL HEMOGLOBIN 8.1 g/dL (12.0-18.0); BG VENT MODE MASK - BIPAP; BG VENT RATE 16 set
[2019-04-28] MEDS: IPRATROPIUM/ALBUTEROL 0.5-3(2.5)MG/3ML NEB HHN PRN (09:05)
[2019-04-28] MEDS: NYSTATIN POWDER 15GM TOP SCH ×3 (09:26→18:08)
[2019-04-28] MEDS: ENOXAPARIN 40MG/0.4ML SYR SUBCUT SCH ×2 (09:26→22:24)
[2019-04-28] MEDS: VANCOMYCIN 1250MG in DEXTROSE 5% WATER 250ML IV SCH (12:41)
[2019-04-28 12:48] LABS: HEMATOCRIT 22.1 % (36.0-48.0)
[2019-04-28 12:59] LABS: HEMOGLOBIN 6.8 g/dL (12.0-16.0)
[2019-04-28 17:22] LABS: PLATELET ESTIMATE NORMAL
[2019-04-28 17:57] LABS: PLATELET ESTIMATE NORMAL
[2019-04-28] MEDS ORDERED: FUROSEMIDE 40MG/4ML VIAL IVP SCH (18:00)
[2019-04-29] VITALS (15 sets, daily range): BP systolic 108–145; BP diastolic 55–78
[2019-04-29] MEDS: ACETYLCYSTEINE 100MG/ML 10% VIAL 4ML INH SCH ×3 (00:20→16:43)
[2019-04-29] MEDS: IPRATROPIUM/ALBUTEROL 0.5-3(2.5)MG/3ML NEB HHN SCH ×6 (00:21→21:01)
[2019-04-29] MEDS: PIPERACILLIN/TAZ 3.375G PREMIX 50 ML IV SCH ×4 (02:48→20:28)
[2019-04-29] MEDS: DILTIAZEM HCL 60MG TABLET PO SCH ×3 (05:25→22:11)
[2019-04-29 06:39] LABS: HEMATOCRIT. 23.1 % (36.0-48.0); HEMOGLOBIN. 7.4 g/dL (12.0-16.0); MEAN CORPUSCULAR HEMOGLOBIN 26.4 pg (28.0-32.0); MEAN CORPUSCULAR VOLUME 82.7 fL (81.0-99.0); PLATELET 146 x1000/uL (130-400); RED BLOOD CELL COUNT 2.79 mill/uL (4.2-5.4); RED CELL DISTRIBUTION WIDTH 19.2 % (11.6-14.6)
[2019-04-29 06:40] LABS: CHLORIDE 94 mEq/L (98-107); INR 1.2; PROTHROMBIN TIME 12.3 sec (9.6-11.0)
[2019-04-29] MEDS: NYSTATIN POWDER 15GM TOP SCH ×3 (09:00→17:00)
[2019-04-29] MEDS: FUROSEMIDE 40MG/4ML VIAL IVP SCH ×2 (09:23→16:37)
[2019-04-29] MEDS: OMEPRAZOLE 20MG CAPSULE EXTENDED RELEASE PO SCH (09:23)
[2019-04-29] MEDS: ENOXAPARIN 40MG/0.4ML SYR SUBCUT SCH ×2 (09:24→20:27)
[2019-04-29] MEDS: HYDROCODONE/ACETAMINOPHEN 5/325MG TABLET PO PRN ×2 (09:57→20:08)
[2019-04-29 13:58] LABS: PLATELET ESTIMATE NORMAL
[2019-04-30] VITALS (11 sets, daily range): BP systolic 101–151; BP diastolic 45–115
[2019-04-30] MEDS: IPRATROPIUM/ALBUTEROL 0.5-3(2.5)MG/3ML NEB HHN SCH ×6 (00:56→21:36)
[2019-04-30] MEDS: ACETYLCYSTEINE 100MG/ML 10% VIAL 4ML INH SCH ×3 (00:56→16:31)
[2019-04-30] MEDS: HYDROCODONE/ACETAMINOPHEN 5/325MG TABLET PO PRN ×3 (02:59→17:23)
[2019-04-30] MEDS: PIPERACILLIN/TAZ 3.375G PREMIX 50 ML IV SCH ×4 (03:29→21:27)
[2019-04-30 06:32] LABS: HEMATOCRIT. 23.5 % (36.0-48.0); HEMOGLOBIN. 7.5 g/dL (12.0-16.0); MEAN CORPUSCULAR HEMOGLOBIN 26.6 pg (28.0-32.0); MEAN CORPUSCULAR VOLUME 82.8 fL (81.0-99.0); MEAN PLATELET VOLUME 8.5 fl (7.4-10.4); PLATELET 146 x1000/uL (130-400); RED BLOOD CELL COUNT 2.84 mill/uL (4.2-5.4); RED CELL DISTRIBUTION WIDTH 19.4 % (11.6-14.6)
[2019-04-30 06:36] LABS: CHLORIDE 94 mEq/L (98-107)
[2019-04-30] MEDS: DILTIAZEM HCL 60MG TABLET PO SCH ×3 (06:46→21:11)
[2019-04-30] MEDS: FUROSEMIDE 40MG/4ML VIAL IVP SCH ×2 (06:46→16:46)
[2019-04-30] MEDS: ENOXAPARIN 40MG/0.4ML SYR SUBCUT SCH ×2 (09:40→21:19)
[2019-04-30] MEDS: OMEPRAZOLE 20MG CAPSULE EXTENDED RELEASE PO SCH (09:43)
[2019-04-30] MEDS: NYSTATIN POWDER 15GM TOP SCH ×3 (09:44→17:11)
[2019-04-30 10:38] LABS: BG BASE EXCESS 8.2 mmol/L (-2.0-2.0); BG BILEVEL POS AIRWAY PRESSURE 18/5; BG CARBOXYHEMOGLOBIN 1.6 % (0.5-1.5); BG FRACTION INSPIRED OXYGEN 50; BG HCO3 ACT 35.2 mmol/L (22.0-26.0); BG METHEMOGLOBIN 0.2 % (0.0-1.5); BG OXYHEMOGLOBIN 97.2 % (94.0-97.0); BG PCO2 66.3 mmHg (35.0-45.0); BG PH 7.343 (7.350-7.450); BG PO2 144.9 mmHg (75.0-100.0); BG SAMPLE SITE RIGHT RADIAL; BG TOTAL HEMOGLOBIN 8.6 g/dL (12.0-18.0); BG VENT MODE MASK - BIPAP; BG VENT RATE 16 set
[2019-04-30] MEDS ORDERED: VANCOMYCIN 1250MG in DEXTROSE 5% WATER 250ML IV SCH (14:00)
[2019-04-30 14:55] LABS: PLATELET ESTIMATE NORMAL
[2019-04-30] MEDS ORDERED: KCL 20MEQ/100ML PREMIX 100 ML IV NR (15:00)
[2019-05-01] VITALS (14 sets, daily range): BP systolic 86–154; BP diastolic 26–105
[2019-05-01] MEDS: IPRATROPIUM/ALBUTEROL 0.5-3(2.5)MG/3ML NEB HHN SCH ×6 (00:17→20:58)
[2019-05-01] MEDS: ACETYLCYSTEINE 100MG/ML 10% VIAL 4ML INH SCH ×3 (00:17→15:00)
[2019-05-01] MEDS: PIPERACILLIN/TAZ 3.375G PREMIX 50 ML IV SCH ×3 (02:39→20:11)
[2019-05-01] MEDS: HYDROCODONE/ACETAMINOPHEN 5/325MG TABLET PO PRN ×3 (02:42→23:30)
[2019-05-01] MEDS: DILTIAZEM HCL 60MG TABLET PO SCH ×3 (06:10→22:09)
[2019-05-01] MEDS: FUROSEMIDE 40MG/4ML VIAL IVP SCH (06:15)
[2019-05-01 07:08] LABS: BASOPHILS % 0.4 % (0.0-2.0); EOSINOPHILS % 1.6 % (0.0-5.0); HEMATOCRIT. 22.8 % (36.0-48.0); HEMOGLOBIN. 7.2 g/dL (12.0-16.0); MEAN CORPUSCULAR HEMOGLOBIN 26.2 pg (28.0-32.0); MEAN CORPUSCULAR VOLUME 83.4 fL (81.0-99.0); MEAN PLATELET VOLUME 8.7 fl (7.4-10.4); PLATELET 146 x1000/uL (130-400); RED BLOOD CELL COUNT 2.74 mill/uL (4.2-5.4); RED CELL DISTRIBUTION WIDTH 19.6 % (11.6-14.6)
[2019-05-01 09:13] LABS: CHLORIDE 95 mEq/L (98-107)
[2019-05-01] MEDS: OMEPRAZOLE 20MG CAPSULE EXTENDED RELEASE PO SCH (09:20)
[2019-05-01] MEDS: NYSTATIN POWDER 15GM TOP SCH ×3 (09:21→16:35)
[2019-05-01] MEDS: ENOXAPARIN 40MG/0.4ML SYR SUBCUT SCH ×2 (09:21→22:05)
[2019-05-01] MEDS ORDERED: KCL 20MEQ/100ML PREMIX 100 ML IV NR (11:30)
[2019-05-01] MEDS: FUROSEMIDE 100MG/10ML VIAL IVP SCH (16:21)
[2019-05-02] VITALS (13 sets, daily range): BP systolic 95–131; BP diastolic 50–98
[2019-05-02] MEDS: IPRATROPIUM/ALBUTEROL 0.5-3(2.5)MG/3ML NEB HHN SCH ×5 (00:38→20:30)
[2019-05-02] MEDS: ACETYLCYSTEINE 100MG/ML 10% VIAL 4ML INH SCH ×3 (00:39→14:00)
[2019-05-02] MEDS: DILTIAZEM HCL 60MG TABLET PO SCH ×3 (06:00→23:15)
[2019-05-02] MEDS: FUROSEMIDE 100MG/10ML VIAL IVP SCH ×2 (06:35→17:48)
[2019-05-02] MEDS: OMEPRAZOLE 20MG CAPSULE EXTENDED RELEASE PO SCH (06:35)
[2019-05-02 06:52] LABS: BASOPHILS % 0.6 % (0.0-2.0); EOSINOPHILS % 2.1 % (0.0-5.0); HEMATOCRIT. 22.5 % (36.0-48.0); HEMOGLOBIN. 7.1 g/dL (12.0-16.0); LYMPHOCYTES % 9.7 % (20.0-50.0); MEAN CORPUSCULAR HEMOGLOBIN 26.4 pg (28.0-32.0); MEAN CORPUSCULAR VOLUME 84.1 fL (81.0-99.0); MEAN PLATELET VOLUME 8.9 fl (7.4-10.4); MONOCYTES % 10.4 % (2.0-8.0); NEUTROPHILS % 77.2 % (40.0-76.0); PLATELET 145 x1000/uL (130-400); RED BLOOD CELL COUNT 2.67 mill/uL (4.2-5.4); RED CELL DISTRIBUTION WIDTH 19.5 % (11.6-14.6)
[2019-05-02 07:44] LABS: CHLORIDE 96 mEq/L (98-107)
[2019-05-02] MEDS: HYDROCODONE/ACETAMINOPHEN 5/325MG TABLET PO PRN ×2 (08:33→22:00)
[2019-05-02] MEDS: NYSTATIN POWDER 15GM TOP SCH ×3 (08:34→17:50)
[2019-05-02] MEDS ORDERED: POTASSIUM CHLORIDE 20MEQ TABLET SR PO SCH (09:00)
[2019-05-02 16:21] LABS: BG BASE EXCESS 8.6 mmol/L (-2.0-2.0); BG CARBOXYHEMOGLOBIN 0.8 % (0.5-1.5); BG DEOXYHEMOGLOBIN 1.2 % (0.0-5.0); BG FRACTION INSPIRED OXYGEN 50; BG HCO3 ACT 35.9 mmol/L (22.0-26.0); BG METHEMOGLOBIN 0.2 % (0.0-1.5); BG OXYGEN SATURATION 98.8 % (92.0-98.5); BG OXYHEMOGLOBIN 97.8 % (94.0-97.0); BG PCO2 69.7 mmHg (35.0-45.0); BG PO2 131.6 mmHg (75.0-100.0); BG SAMPLE SITE LEFT RADIAL; BG TOTAL HEMOGLOBIN 8.2 g/dL (12.0-18.0); BG VENT MODE MASK - CPAP
[2019-05-03] VITALS (12 sets, daily range): BP systolic 98–129; BP diastolic 48–86
[2019-05-03] MEDS: IPRATROPIUM/ALBUTEROL 0.5-3(2.5)MG/3ML NEB HHN SCH ×6 (00:18→21:24)
[2019-05-03] MEDS: ACETYLCYSTEINE 100MG/ML 10% VIAL 4ML INH SCH ×3 (00:18→16:02)
[2019-05-03] MEDS: DILTIAZEM HCL 60MG TABLET PO SCH ×3 (05:25→21:13)
[2019-05-03] MEDS: NYSTATIN POWDER 15GM TOP SCH ×3 (10:03→17:12)
[2019-05-03] MEDS: POTASSIUM CHLORIDE 20MEQ TABLET SR PO SCH (10:03)
[2019-05-03] MEDS: OMEPRAZOLE 20MG CAPSULE EXTENDED RELEASE PO SCH (10:03)
[2019-05-03] MEDS: FUROSEMIDE 100MG/10ML VIAL IVP SCH ×2 (10:03→17:15)
[2019-05-03] MEDS: HYDROCODONE/ACETAMINOPHEN 5/325MG TABLET PO PRN ×3 (12:14→21:21)
[2019-05-03 18:08] LABS: HEMATOCRIT. 23.4 % (36.0-48.0); HEMOGLOBIN. 7.5 g/dL (12.0-16.0); MEAN CORPUSCULAR HEMOGLOBIN 26.8 pg (28.0-32.0); MEAN CORPUSCULAR VOLUME 83.7 fL (81.0-99.0); MEAN PLATELET VOLUME 8.6 fl (7.4-10.4); PLATELET 161 x1000/uL (130-400); RED BLOOD CELL COUNT 2.79 mill/uL (4.2-5.4); RED CELL DISTRIBUTION WIDTH 20.3 % (11.6-14.6)
[2019-05-03 18:10] LABS: CHLORIDE 97 mEq/L (98-107)
[2019-05-03 18:30] LABS: PLATELET ESTIMATE NORMAL
[2019-05-04] VITALS (13 sets, daily range): BP systolic 100–133; BP diastolic 48–72
[2019-05-04] MEDS: ACETYLCYSTEINE 100MG/ML 10% VIAL 4ML INH SCH ×3 (01:15→13:05)
[2019-05-04] MEDS: IPRATROPIUM/ALBUTEROL 0.5-3(2.5)MG/3ML NEB HHN SCH ×6 (01:20→21:03)
[2019-05-04] MEDS: DILTIAZEM HCL 60MG TABLET PO SCH ×3 (06:59→21:42)
[2019-05-04 07:02] LABS: BASOPHILS % 0.4 % (0.0-2.0); EOSINOPHILS % 2.3 % (0.0-5.0); HEMATOCRIT. 22.1 % (36.0-48.0); LYMPHOCYTES % 8.4 % (20.0-50.0); MEAN CORPUSCULAR HEMOGLOBIN 26.5 pg (28.0-32.0); MEAN CORPUSCULAR VOLUME 83.7 fL (81.0-99.0); MEAN PLATELET VOLUME 8.7 fl (7.4-10.4); MONOCYTES % 9.9 % (2.0-8.0); PLATELET 160 x1000/uL (130-400); RED BLOOD CELL COUNT 2.64 mill/uL (4.2-5.4)
[2019-05-04 07:06] LABS: CHLORIDE 97 mEq/L (98-107)
[2019-05-04] MEDS: FUROSEMIDE 100MG/10ML VIAL IVP SCH ×2 (08:49→16:57)
[2019-05-04] MEDS: POTASSIUM CHLORIDE 20MEQ TABLET SR PO SCH (08:50)
[2019-05-04] MEDS: OMEPRAZOLE 20MG CAPSULE EXTENDED RELEASE PO SCH (08:50)
[2019-05-04] MEDS: NYSTATIN POWDER 15GM TOP SCH ×3 (08:51→16:58)
[2019-05-04] MEDS: HYDROCODONE/ACETAMINOPHEN 5/325MG TABLET PO PRN ×2 (09:05→14:52)
[2019-05-04] MEDS ORDERED: KCL 20MEQ/100ML PREMIX 100 ML IV SCH (16:00)
[2019-05-04] MEDS ORDERED: HYDROCODONE/ACETAMINOPHEN 5/325MG TABLET PO PRN (23:15)
[2019-05-05] VITALS (17 sets, daily range): BP systolic 103–146; BP diastolic 31–82
[2019-05-05] MEDS: IPRATROPIUM/ALBUTEROL 0.5-3(2.5)MG/3ML NEB HHN SCH ×5 (00:57→20:58)
[2019-05-05 06:46] LABS: HEMATOCRIT 23.2 % (36.0-48.0); HEMOGLOBIN 7.5 g/dL (12.0-16.0); MEAN CORPUSCULAR HEMOGLOBIN 27.3 pg (28.0-32.0); PLATELET 168 x1000/uL (130-400); RED BLOOD CELL COUNT 2.76 mill/uL (4.2-5.4); RED CELL DISTRIBUTION WIDTH 20.6 % (11.6-14.6)
[2019-05-05] MEDS: DILTIAZEM HCL 60MG TABLET PO SCH ×3 (06:51→21:35)
[2019-05-05] MEDS: FUROSEMIDE 100MG/10ML VIAL IVP SCH ×2 (06:51→18:19)
[2019-05-05 07:46] LABS: CHLORIDE 96 mEq/L (98-107)
[2019-05-05] MEDS: OMEPRAZOLE 20MG CAPSULE EXTENDED RELEASE PO SCH (07:49)
[2019-05-05] MEDS: POTASSIUM CHLORIDE 20MEQ TABLET SR PO SCH (07:49)
[2019-05-05] MEDS: NYSTATIN POWDER 15GM TOP SCH ×3 (07:57→17:28)
[2019-05-05 08:02] LABS: BG BASE EXCESS 7.1 mmol/L (-2.0-2.0); BG BILEVEL POS AIRWAY PRESSURE 18/5; BG DEOXYHEMOGLOBIN 2.6 % (0.0-5.0); BG FRACTION INSPIRED OXYGEN 50; BG HCO3 ACT 32.4 mmol/L (22.0-26.0); BG OXYGEN SATURATION 97.4 % (92.0-98.5); BG OXYHEMOGLOBIN 96.4 % (94.0-97.0); BG PCO2 51.8 mmHg (35.0-45.0); BG PH 7.414 (7.350-7.450); BG PO2 97.2 mmHg (75.0-100.0); BG SAMPLE SITE RIGHT BRACHIAL; BG TOTAL HEMOGLOBIN 6.9 g/dL (12.0-18.0); BG VENT MODE MASK - BIPAP
[2019-05-05] MEDS: HYDROCODONE/ACETAMINOPHEN 5/325MG TABLET PO PRN ×3 (08:51→21:55)
[2019-05-05] MEDS ORDERED: LIDOCAINE HCL/PF 1% 2ML VIAL ONE (14:30)
[2019-05-06] VITALS (11 sets, daily range): BP systolic 102–150; BP diastolic 43–93
[2019-05-06] MEDS: IPRATROPIUM/ALBUTEROL 0.5-3(2.5)MG/3ML NEB HHN SCH ×6 (00:31→20:42)
[2019-05-06] MEDS: FUROSEMIDE 100MG/10ML VIAL IVP SCH ×2 (06:39→16:00)
[2019-05-06] MEDS: DILTIAZEM HCL 60MG TABLET PO SCH ×3 (06:39→21:43)
[2019-05-06] MEDS: OMEPRAZOLE 20MG CAPSULE EXTENDED RELEASE PO SCH (06:39)
[2019-05-06] MEDS: NYSTATIN POWDER 15GM TOP SCH ×2 (08:38→16:00)
[2019-05-06] MEDS: POTASSIUM CHLORIDE 20MEQ TABLET SR PO SCH (08:51)
[2019-05-06] MEDS: HYDROCODONE/ACETAMINOPHEN 5/325MG TABLET PO PRN ×2 (09:15→20:27)
[2019-05-07] VITALS (17 sets, daily range): BP systolic 12–175; BP diastolic 48–87
[2019-05-07] MEDS: HYDROCODONE/ACETAMINOPHEN 5/325MG TABLET PO PRN ×4 (00:32→13:43)
[2019-05-07] MEDS: IPRATROPIUM/ALBUTEROL 0.5-3(2.5)MG/3ML NEB HHN SCH ×6 (00:43→20:48)
[2019-05-07] MEDS: DILTIAZEM HCL 60MG TABLET PO SCH ×3 (05:40→21:07)
[2019-05-07 07:13] LABS: BASOPHILS % 0.7 % (0.0-2.0); EOSINOPHILS % 1.4 % (0.0-5.0); HEMATOCRIT. 23.1 % (36.0-48.0); HEMOGLOBIN. 7.2 g/dL (12.0-16.0); LYMPHOCYTES % 7.8 % (20.0-50.0); MEAN CORPUSCULAR HEMOGLOBIN 26.3 pg (28.0-32.0); MEAN CORPUSCULAR VOLUME 84.1 fL (81.0-99.0); MONOCYTES % 7.9 % (2.0-8.0); NEUTROPHILS % 82.2 % (40.0-76.0); PLATELET 182 x1000/uL (130-400); RED BLOOD CELL COUNT 2.74 mill/uL (4.2-5.4); RED CELL DISTRIBUTION WIDTH 20.1 % (11.6-14.6)
[2019-05-07 08:14] LABS: CHLORIDE 95 mEq/L (98-107)
[2019-05-07] MEDS: FUROSEMIDE 100MG/10ML VIAL IVP SCH ×2 (08:49→18:59)
[2019-05-07] MEDS: POTASSIUM CHLORIDE 20MEQ TABLET SR PO SCH (08:49)
[2019-05-07] MEDS: OMEPRAZOLE 20MG CAPSULE EXTENDED RELEASE PO SCH (08:49)
[2019-05-07] MEDS: NYSTATIN POWDER 15GM TOP SCH ×4 (09:07→17:00)
[2019-05-07 09:46] LABS: BG BASE EXCESS 7.8 mmol/L (-2.0-2.0); BG CARBOXYHEMOGLOBIN 1.6 % (0.5-1.5); BG DEOXYHEMOGLOBIN 4.9 % (0.0-5.0); BG FRACTION INSPIRED OXYGEN 55; BG HCO3 ACT 33.8 mmol/L (22.0-26.0); BG METHEMOGLOBIN 0.3 % (0.0-1.5); BG OXYHEMOGLOBIN 93.2 % (94.0-97.0); BG PCO2 57.1 mmHg (35.0-45.0); BG PO2 73.2 mmHg (75.0-100.0); BG SAMPLE SITE LEFT RADIAL; BG TOTAL HEMOGLOBIN 8.3 g/dL (12.0-18.0); BG VENT MODE VAPOTHERM
[2019-05-07] MEDS ORDERED: LIDOCAINE HCL 1% 20ML VIAL (Pyxis) INJ ONE (10:47)
[2019-05-07] MEDS ORDERED: LIDOCAINE HCL/PF 1% 2ML VIAL ONE (10:57)
[2019-05-07] MEDS ORDERED: FUROSEMIDE 20MG/2ML VIAL IVP NR (16:00)
[2019-05-07] MEDS: ONDANSETRON HCL 4MG/2ML INJ IV PRN (17:34)
[2019-05-08] VITALS (11 sets, daily range): BP systolic 116–154; BP diastolic 52–95
[2019-05-08] MEDS: IPRATROPIUM/ALBUTEROL 0.5-3(2.5)MG/3ML NEB HHN SCH ×6 (01:28→20:57)
[2019-05-08] MEDS: DILTIAZEM HCL 60MG TABLET PO SCH ×3 (05:55→22:12)
[2019-05-08 06:20] LABS: BASOPHILS % 1.2 % (0.0-2.0); EOSINOPHILS % 0.4 % (0.0-5.0); HEMATOCRIT. 27.2 % (36.0-48.0); HEMOGLOBIN. 8.6 g/dL (12.0-16.0); LYMPHOCYTES % 7.6 % (20.0-50.0); MEAN CORPUSCULAR HEMOGLOBIN 26.4 pg (28.0-32.0); MEAN PLATELET VOLUME 8.8 fl (7.4-10.4); MONOCYTES % 6.9 % (2.0-8.0); NEUTROPHILS % 83.9 % (40.0-76.0); PLATELET 193 x1000/uL (130-400); RED BLOOD CELL COUNT 3.24 mill/uL (4.2-5.4)
[2019-05-08 06:28] LABS: CHLORIDE 95 mEq/L (98-107)
[2019-05-08] MEDS: OMEPRAZOLE 20MG CAPSULE EXTENDED RELEASE PO SCH (08:54)
[2019-05-08] MEDS: POTASSIUM CHLORIDE 20MEQ TABLET SR PO SCH (08:54)
[2019-05-08] MEDS: FUROSEMIDE 100MG/10ML VIAL IVP SCH ×2 (08:54→16:33)
[2019-05-08] MEDS: NYSTATIN POWDER 15GM TOP SCH ×3 (09:00→15:50)
[2019-05-08] MEDS: HYDROCODONE/ACETAMINOPHEN 5/325MG TABLET PO PRN ×3 (10:16→23:28)
[2019-05-09] VITALS (12 sets, daily range): BP systolic 118–148; BP diastolic 62–89
[2019-05-09] MEDS: IPRATROPIUM/ALBUTEROL 0.5-3(2.5)MG/3ML NEB HHN SCH ×6 (00:51→20:15)
[2019-05-09] MEDS: FUROSEMIDE 100MG/10ML VIAL IVP SCH ×2 (06:29→17:07)
[2019-05-09] MEDS: HYDROCODONE/ACETAMINOPHEN 5/325MG TABLET PO PRN ×3 (06:30→19:00)
[2019-05-09] MEDS: DILTIAZEM HCL 60MG TABLET PO SCH ×3 (06:32→22:18)
[2019-05-09] MEDS: POTASSIUM CHLORIDE 20MEQ TABLET SR PO SCH (09:19)
[2019-05-09] MEDS: OMEPRAZOLE 20MG CAPSULE EXTENDED RELEASE PO SCH (09:19)
[2019-05-09] MEDS: NYSTATIN POWDER 15GM TOP SCH ×3 (09:20→17:07)
[2019-05-10] VITALS (12 sets, daily range): BP systolic 101–152; BP diastolic 43–94
[2019-05-10] MEDS: IPRATROPIUM/ALBUTEROL 0.5-3(2.5)MG/3ML NEB HHN SCH ×6 (00:14→21:36)
[2019-05-10] MEDS: HYDROCODONE/ACETAMINOPHEN 5/325MG TABLET PO PRN ×3 (00:20→17:52)
[2019-05-10] MEDS: DILTIAZEM HCL 60MG TABLET PO SCH ×2 (05:15→20:56)
[2019-05-10] MEDS: OMEPRAZOLE 20MG CAPSULE EXTENDED RELEASE PO SCH (05:16)
[2019-05-10] MEDS: FUROSEMIDE 100MG/10ML VIAL IVP SCH ×2 (05:27→17:52)
[2019-05-10] MEDS: POTASSIUM CHLORIDE 20MEQ TABLET SR PO SCH (09:32)
[2019-05-10] MEDS: NYSTATIN POWDER 15GM TOP SCH ×2 (09:33→17:53)
[2019-05-10 17:52] LABS: HEMATOCRIT. 25.4 % (36.0-48.0); MEAN CORPUSCULAR HEMOGLOBIN 26.5 pg (28.0-32.0); MEAN CORPUSCULAR VOLUME 84.4 fL (81.0-99.0); MEAN PLATELET VOLUME 8.6 fl (7.4-10.4); PLATELET 190 x1000/uL (130-400); RED BLOOD CELL COUNT 3.01 mill/uL (4.2-5.4); RED CELL DISTRIBUTION WIDTH 19.9 % (11.6-14.6)
[2019-05-10 17:59] LABS: INR 1.2; PARTIAL THROMBOPLASTIN TIME 30.2 sec (23.4-31.0); PROTHROMBIN TIME 12.6 sec (9.6-11.0)
[2019-05-10 18:34] LABS: CHLORIDE 97 mEq/L (98-107)
[2019-05-10 20:58] LABS: PLATELET ESTIMATE NORMAL
[2019-05-11] VITALS (10 sets, daily range): BP systolic 121–149; BP diastolic 61–77
[2019-05-11] MEDS: IPRATROPIUM/ALBUTEROL 0.5-3(2.5)MG/3ML NEB HHN SCH ×6 (01:10→20:30)
[2019-05-11] MEDS: HYDROCODONE/ACETAMINOPHEN 5/325MG TABLET PO PRN (01:14)
[2019-05-11] MEDS ORDERED: BUPIVACAINE HCL/PF 0.5% (5MG/ML) 10ML ONE (06:55)
[2019-05-11] MEDS ORDERED: LIDOCAINE HCL 1% 20ML VIAL (Pyxis) INJ ONE (06:55)
[2019-05-11] MEDS ORDERED: MIDAZOLAM HCL 2 MG/2 ML VIAL ONE (07:21)
[2019-05-11] MEDS ORDERED: LIDOCAINE HCL/PF 1% 10 MG/ML 5ML VIAL ONE (07:21)
[2019-05-11] MEDS ORDERED: SODIUM CHLORIDE 0.9% 10ML VIAL ONE (07:21)
[2019-05-11] MEDS ORDERED: ROCURONIUM BROMIDE 10MG/ML VIAL 5ML IV ONE (07:21)
[2019-05-11] MEDS ORDERED: EPHEDRINE SULFATE 50MG/ML VIAL ONE (07:21)
[2019-05-11] MEDS ORDERED: FENTANYL CITRATE/PF 50MCG/ML 2ML VIAL ONE (07:21)
[2019-05-11] MEDS ORDERED: CEFAZOLIN SODIUM 1000MG/VIAL ONE (07:21)
[2019-05-11] MEDS ORDERED: GLYCOPYRROLATE 0.2 MG/ML 2ML VIAL ONE (07:21)
[2019-05-11] MEDS ORDERED: PHENYLEPHRINE HCL 10 MG/ML 1ML (IV VIAL) IV ONE (07:21)
[2019-05-11] MEDS ORDERED: SUCCINYLCHOLINE CHLORIDE 200MG/10ML IV ONE (07:21)
[2019-05-11] MEDS ORDERED: NEOSTIGMINE METHYLSULFATE 1MG/ML 10 ML VIAL ONE (07:21)
[2019-05-11] MEDS ORDERED: PROPOFOL 200MG/20ML VIAL IV ONE (07:21)
[2019-05-11] MEDS: OMEPRAZOLE 20MG CAPSULE EXTENDED RELEASE PO SCH (07:30)
[2019-05-11] MEDS ORDERED: VECURONIUM BROMIDE 10 MG/VIAL IV ONE (08:16)
[2019-05-11] MEDS: ACETAMINOPHEN 650MG/20.3ML UDC PO SCH ×3 (08:45→17:15)
[2019-05-11] MEDS: NYSTATIN POWDER 15GM TOP SCH ×3 (09:00→17:14)
[2019-05-11] MEDS: POTASSIUM CHLORIDE 20MEQ TABLET SR PO SCH (09:00)
[2019-05-11] MEDS: DILTIAZEM HCL 60MG TABLET PO SCH ×2 (09:00→21:00)
[2019-05-11] MEDS: FUROSEMIDE 100MG/10ML VIAL IVP SCH ×2 (11:30→17:14)
[2019-05-11] MEDS: DEXT 5%/0.45% NACL 1000ML 1,000 ML IV SCH (11:30)
[2019-05-11 11:48] LABS: BG CARBOXYHEMOGLOBIN 0.8 % (0.5-1.5); BG DEOXYHEMOGLOBIN 3.1 % (0.0-5.0); BG FRACTION INSPIRED OXYGEN 35; BG HCO3 ACT 30.3 mmol/L (22.0-26.0); BG METHEMOGLOBIN 0.3 % (0.0-1.5); BG OXYGEN SATURATION 96.9 % (92.0-98.5); BG OXYHEMOGLOBIN 95.8 % (94.0-97.0); BG PCO2 42.9 mmHg (35.0-45.0); BG PH 7.467 (7.350-7.450); BG PO2 85.4 mmHg (75.0-100.0); BG SAMPLE SITE RIGHT RADIAL; BG TIDAL VOLUME(mL) 500 mL; BG TOTAL HEMOGLOBIN 8.3 g/dL (12.0-18.0); BG VENT MODE VENT - A/C; BG VENT RATE 14 set
[2019-05-11] MEDS ORDERED: MORPHINE SULFATE 4 MG/ML CPJ (NOT FOR IM USE) IV ONE (19:12)
[2019-05-11] MEDS ORDERED: MORPHINE SULFATE 2 MG/ML CPJ (NOT FOR IM USE) IV PRN (19:30)
[2019-05-11] MEDS: MORPHINE SULFATE 4 MG/ML CPJ (NOT FOR IM USE) IV PRN ×2 (19:46→23:29)
[2019-05-11] MEDS: ONDANSETRON HCL 4MG/2ML INJ IV PRN (23:39)
[2019-05-12] VITALS (8 sets, daily range): BP systolic 108–142; BP diastolic 45–96
[2019-05-12] MEDS: IPRATROPIUM/ALBUTEROL 0.5-3(2.5)MG/3ML NEB HHN SCH ×6 (00:21→20:22)
[2019-05-12] MEDS: DEXT 5%/0.45% NACL 1000ML 1,000 ML IV SCH ×2 (00:37→13:50)
[2019-05-12] MEDS: MORPHINE SULFATE 4 MG/ML CPJ (NOT FOR IM USE) IV PRN ×4 (04:57→22:18)
[2019-05-12] MEDS: ACETAMINOPHEN 650MG/20.3ML UDC PO SCH ×4 (05:31→17:39)
[2019-05-12] MEDS: OMEPRAZOLE 20MG CAPSULE EXTENDED RELEASE PO SCH (07:30)
[2019-05-12] MEDS: FUROSEMIDE 100MG/10ML VIAL IVP SCH ×2 (07:56→16:44)
[2019-05-12] MEDS: ONDANSETRON HCL 4MG/2ML INJ IV PRN (08:19)
[2019-05-12] MEDS: POTASSIUM CHLORIDE 20MEQ TABLET SR PO SCH (09:00)
[2019-05-12] MEDS: DILTIAZEM HCL 60MG TABLET PO SCH ×2 (09:00→21:00)
[2019-05-12] MEDS: NYSTATIN POWDER 15GM TOP SCH ×3 (09:50→16:44)
[2019-05-12] MEDS: MORPHINE SULFATE 2 MG/ML CPJ (NOT FOR IM USE) IV PRN (18:33)
[2019-05-13] VITALS (8 sets, daily range): BP systolic 109–140; BP diastolic 52–79
[2019-05-13] MEDS: IPRATROPIUM/ALBUTEROL 0.5-3(2.5)MG/3ML NEB HHN SCH ×6 (01:38→23:50)
[2019-05-13] MEDS: MORPHINE SULFATE 4 MG/ML CPJ (NOT FOR IM USE) IV PRN ×5 (02:19→21:19)
[2019-05-13] MEDS: DEXT 5%/0.45% NACL 1000ML 1,000 ML IV SCH ×2 (03:03→16:48)
[2019-05-13] MEDS: ACETAMINOPHEN 650MG/20.3ML UDC PO SCH ×4 (06:00→17:05)
[2019-05-13 07:07] LABS: INR 1.3; PARTIAL THROMBOPLASTIN TIME 30.8 sec (23.4-31.0); PROTHROMBIN TIME 13.4 sec (9.6-11.0)
[2019-05-13 07:23] LABS: HEMATOCRIT 25.9 % (36.0-48.0); HEMOGLOBIN 8.2 g/dL (12.0-16.0); MEAN CORPUSCULAR HEMOGLOBIN 26.1 pg (28.0-32.0); MEAN CORPUSCULAR VOLUME 82.7 fL (81.0-99.0); PLATELET 201 x1000/uL (130-400); RED BLOOD CELL COUNT 3.13 mill/uL (4.2-5.4)
[2019-05-13] MEDS: OMEPRAZOLE 20MG CAPSULE EXTENDED RELEASE PO SCH (07:30)
[2019-05-13 07:42] LABS: CHLORIDE 100 mEq/L (98-107)
[2019-05-13] MEDS: FUROSEMIDE 100MG/10ML VIAL IVP SCH ×2 (08:06→16:47)
[2019-05-13] MEDS: DILTIAZEM HCL 60MG TABLET PO SCH ×2 (09:00→21:00)
[2019-05-13] MEDS: POTASSIUM CHLORIDE 20MEQ TABLET SR PO SCH (09:00)
[2019-05-13] MEDS: NYSTATIN POWDER 15GM TOP SCH ×3 (09:13→16:47)
[2019-05-13] MEDS ORDERED: CEFAZOLIN 1000MG PREMIX 50 ML IV SCH (10:00)
[2019-05-13] MEDS ORDERED: MIDAZOLAM HCL 5 MG/5 ML VIAL ONE (10:15)
[2019-05-13] MEDS ORDERED: FENTANYL CITRATE/PF 50MCG/ML 2ML VIAL ONE (10:15)
[2019-05-13] MEDS ORDERED: MIDAZOLAM HCL 2 MG/2 ML VIAL IV PRN (11:01)
[2019-05-13] MEDS ORDERED: FENTANYL CITRATE/PF 50MCG/ML 2ML VIAL IV PRN (11:02)
[2019-05-13] MEDS ORDERED: KCL 20MEQ/100ML PREMIX 100 ML IV NR (12:00)
[2019-05-13] MEDS ORDERED: BACTERIOSTATIC SODIUM CHLORIDE 0.9% 30ML VIAL IJ ONE (13:31)
[2019-05-13] MEDS: MORPHINE SULFATE 2 MG/ML CPJ (NOT FOR IM USE) IV PRN (18:32)
[2019-05-14] VITALS (15 sets, daily range): BP systolic 98–127; BP diastolic 45–69
[2019-05-14] MEDS: ACETAMINOPHEN 650MG/20.3ML UDC PO SCH ×5 (00:25→18:20)
[2019-05-14] MEDS: MORPHINE SULFATE 2 MG/ML CPJ (NOT FOR IM USE) IV PRN (02:40)
[2019-05-14] MEDS: IPRATROPIUM/ALBUTEROL 0.5-3(2.5)MG/3ML NEB HHN SCH ×6 (04:14→23:52)
[2019-05-14] MEDS: FUROSEMIDE 100MG/10ML VIAL IVP SCH ×2 (06:30→18:19)
[2019-05-14 06:47] LABS: BASOPHILS % 0.6 % (0.0-2.0); EOSINOPHILS % 1.8 % (0.0-5.0); HEMATOCRIT. 26.3 % (36.0-48.0); HEMOGLOBIN. 8.3 g/dL (12.0-16.0); LYMPHOCYTES % 14.8 % (20.0-50.0); MEAN CORPUSCULAR HEMOGLOBIN 25.8 pg (28.0-32.0); MEAN CORPUSCULAR VOLUME 82.1 fL (81.0-99.0); MEAN PLATELET VOLUME 8.4 fl (7.4-10.4); MONOCYTES % 10.3 % (2.0-8.0); NEUTROPHILS % 72.5 % (40.0-76.0); PLATELET 191 x1000/uL (130-400); RED CELL DISTRIBUTION WIDTH 20.2 % (11.6-14.6)
[2019-05-14 07:07] LABS: CHLORIDE 100 mEq/L (98-107)
[2019-05-14] MEDS: MORPHINE SULFATE 4 MG/ML CPJ (NOT FOR IM USE) IV PRN ×3 (07:15→18:34)
[2019-05-14] MEDS: DILTIAZEM HCL 60MG TABLET PO SCH ×2 (09:00→21:22)
[2019-05-14] MEDS: POTASSIUM CHLORIDE 20MEQ TABLET SR PO SCH (09:00)
[2019-05-14] MEDS: NYSTATIN POWDER 15GM TOP SCH ×3 (09:01→18:20)
[2019-05-14] MEDS: DEXT 5%/0.45% NACL 1000ML 1,000 ML IV SCH ×2 (09:02→21:24)
[2019-05-14] MEDS: OMEPRAZOLE 20MG CAPSULE EXTENDED RELEASE PO SCH (09:11)
[2019-05-14] MEDS ORDERED: SORBITOL 70% SOLN 30ML PO SCH (12:30)
[2019-05-14] MEDS ORDERED: POTASSIUM CHLORIDE 20MEQ/PACKET GT SCH (13:45)
[2019-05-14] MEDS: BISACODYL 10MG SUPP PR PRN ×2 (14:43→18:35)
[2019-05-15] VITALS (12 sets, daily range): BP systolic 108–138; BP diastolic 49–78
[2019-05-15] MEDS: ACETAMINOPHEN 650MG/20.3ML UDC PO SCH ×4 (00:19→17:02)
[2019-05-15] MEDS: MORPHINE SULFATE 4 MG/ML CPJ (NOT FOR IM USE) IV PRN ×6 (00:40→23:11)
[2019-05-15] MEDS: IPRATROPIUM/ALBUTEROL 0.5-3(2.5)MG/3ML NEB HHN SCH ×5 (03:57→20:57)
[2019-05-15] MEDS: FUROSEMIDE 100MG/10ML VIAL IVP SCH ×2 (06:50→17:02)
[2019-05-15] MEDS: OMEPRAZOLE 20MG CAPSULE EXTENDED RELEASE PO SCH (06:51)
[2019-05-15 06:52] LABS: HEMATOCRIT. 24.7 % (36.0-48.0); HEMOGLOBIN. 7.8 g/dL (12.0-16.0); MEAN CORPUSCULAR HEMOGLOBIN 26.3 pg (28.0-32.0); MEAN CORPUSCULAR VOLUME 82.9 fL (81.0-99.0); MEAN PLATELET VOLUME 8.1 fl (7.4-10.4); PLATELET 170 x1000/uL (130-400); RED BLOOD CELL COUNT 2.98 mill/uL (4.2-5.4); RED CELL DISTRIBUTION WIDTH 20.1 % (11.6-14.6)
[2019-05-15] MEDS: POTASSIUM CHLORIDE 20MEQ TABLET SR PO SCH (08:12)
[2019-05-15] MEDS: DILTIAZEM HCL 60MG TABLET PO SCH (08:13)
[2019-05-15] MEDS: DOCUSATE SODIUM SUGAR FREE 100MG/10ML UDC NG SCH (08:26)
[2019-05-15 10:17] LABS: PLATELET ESTIMATE NORMAL
[2019-05-15] MEDS: NYSTATIN POWDER 15GM TOP SCH ×3 (10:47→17:32)
[2019-05-15] MEDS: DILTIAZEM HCL 30MG TABLET PO SCH ×2 (16:46→18:49)
[2019-05-15] MEDS: DEXT 5%/0.45% NACL 1000ML 1,000 ML IV SCH ×2 (18:32→21:29)
[2019-05-16] VITALS (14 sets, daily range): BP systolic 94–146; BP diastolic 44–82
[2019-05-16] MEDS: IPRATROPIUM/ALBUTEROL 0.5-3(2.5)MG/3ML NEB HHN SCH ×6 (00:24→20:12)
[2019-05-16] MEDS: ACETAMINOPHEN 650MG/20.3ML UDC PO SCH ×4 (00:24→18:05)
[2019-05-16] MEDS: DILTIAZEM HCL 30MG TABLET PO SCH ×3 (00:26→17:38)
[2019-05-16] MEDS: MORPHINE SULFATE 4 MG/ML CPJ (NOT FOR IM USE) IV PRN ×2 (04:01→08:54)
[2019-05-16] MEDS: FUROSEMIDE 100MG/10ML VIAL IVP SCH ×2 (07:02→17:37)
[2019-05-16] MEDS: OMEPRAZOLE 20MG CAPSULE EXTENDED RELEASE PO SCH (07:02)
[2019-05-16] MEDS: DOCUSATE SODIUM SUGAR FREE 100MG/10ML UDC NG SCH ×2 (08:47→17:36)
[2019-05-16] MEDS: NYSTATIN POWDER 15GM TOP SCH ×3 (08:52→17:58)
[2019-05-16] MEDS: POTASSIUM CHLORIDE 20MEQ TABLET SR PO SCH (08:53)
[2019-05-16] MEDS: POLYETHYLENE GLYCOL 3350 (17GM) 1 DOSE PACK PO SCH (11:27)
[2019-05-16] MEDS: DEXT 5%/0.45% NACL 1000ML 1,000 ML IV SCH (11:28)
[2019-05-16] MEDS: MORPHINE SULFATE 2 MG/ML CPJ (NOT FOR IM USE) IV PRN (14:03)
[2019-05-16 16:04] LABS: HEMATOCRIT. 24.5 % (36.0-48.0); HEMOGLOBIN. 7.6 g/dL (12.0-16.0); MEAN CORPUSCULAR HEMOGLOBIN 25.5 pg (28.0-32.0); MEAN CORPUSCULAR VOLUME 82.4 fL (81.0-99.0); MEAN PLATELET VOLUME 8.5 fl (7.4-10.4); PLATELET 175 x1000/uL (130-400); RED BLOOD CELL COUNT 2.97 mill/uL (4.2-5.4); RED CELL DISTRIBUTION WIDTH 20.3 % (11.6-14.6)
[2019-05-16 16:36] LABS: CLARITY URINE CLOUDY (CLEAR); COLOR URINE DARK YELLOW (YELLOW); KETONES URINE NEGATIVE (NEGATIVE); LEUKOCYTE ESTERASE URINE 3+ (NEGATIVE); NITRITE URINE NEGATIVE (NEGATIVE); OCCULT BLOOD URINE 3+ (NEGATIVE); PROTEIN URINE TRACE (NEGATIVE); SPECIFIC GRAVITY URINE 1.017 (1.005-1.030)
[2019-05-16] MEDS: CEFEPIME 2,000 MG in DEXT 5% WATER 100 ML IV SCH (17:34)
[2019-05-16] MEDS ORDERED: VANCOMYCIN 2,000 MG in DEXT 5% WATER 500 ML IV SCH (18:00)
[2019-05-16 18:09] LABS: PLATELET ESTIMATE NORMAL
[2019-05-16] MEDS: ONDANSETRON HCL 4MG/2ML INJ IV PRN (18:17)
[2019-05-17] VITALS (11 sets, daily range): BP systolic 99–144; BP diastolic 55–77
[2019-05-17] MEDS: DILTIAZEM HCL 30MG TABLET PO SCH ×3 (01:17→17:14)
[2019-05-17] MEDS: ACETAMINOPHEN 650MG/20.3ML UDC PO SCH ×4 (01:18→17:09)
[2019-05-17] MEDS: DEXT 5%/0.45% NACL 1000ML 1,000 ML IV SCH ×2 (01:19→14:11)
[2019-05-17] MEDS: IPRATROPIUM/ALBUTEROL 0.5-3(2.5)MG/3ML NEB HHN SCH ×6 (01:29→21:17)
[2019-05-17] MEDS: MORPHINE SULFATE 4 MG/ML CPJ (NOT FOR IM USE) IV PRN ×4 (01:31→22:57)
[2019-05-17 06:29] LABS: HEMATOCRIT. 23.6 % (36.0-48.0); HEMOGLOBIN. 7.4 g/dL (12.0-16.0); MEAN CORPUSCULAR HEMOGLOBIN 25.9 pg (28.0-32.0); MEAN CORPUSCULAR VOLUME 82.7 fL (81.0-99.0); MEAN PLATELET VOLUME 8.8 fl (7.4-10.4); PLATELET 153 x1000/uL (130-400); RED BLOOD CELL COUNT 2.85 mill/uL (4.2-5.4); RED CELL DISTRIBUTION WIDTH 20.5 % (11.6-14.6)
[2019-05-17 06:33] LABS: CHLORIDE 100 mEq/L (98-107)
[2019-05-17] MEDS: FUROSEMIDE 100MG/10ML VIAL IVP SCH ×2 (06:34→17:14)
[2019-05-17] MEDS: OMEPRAZOLE 20MG CAPSULE EXTENDED RELEASE PO SCH (06:34)
[2019-05-17] MEDS: CEFEPIME 2,000 MG in DEXT 5% WATER 100 ML IV SCH ×2 (06:35→17:14)
[2019-05-17] MEDS: MORPHINE SULFATE 2 MG/ML CPJ (NOT FOR IM USE) IV PRN (06:48)
[2019-05-17] MEDS: POTASSIUM CHLORIDE 20MEQ TABLET SR PO SCH (09:30)
[2019-05-17] MEDS: POLYETHYLENE GLYCOL 3350 (17GM) 1 DOSE PACK PO SCH (09:30)
[2019-05-17] MEDS: DOCUSATE SODIUM SUGAR FREE 100MG/10ML UDC NG SCH ×2 (09:30→17:09)
[2019-05-17] MEDS: NYSTATIN POWDER 15GM TOP SCH ×3 (09:31→17:10)
[2019-05-17 12:01] LABS: PLATELET ESTIMATE NORMAL
[2019-05-17] MEDS: VANCOMYCIN 1250MG in DEXTROSE 5% WATER 250ML IV SCH (18:10)
[2019-05-17] MEDS: ONDANSETRON HCL 4MG/2ML INJ IV PRN (18:10)
[2019-05-17] MEDS ORDERED: MORPHINE SULFATE 2 MG/ML CPJ (NOT FOR IM USE) IV PRN (22:45)
[2019-05-18] VITALS (11 sets, daily range): BP systolic 102–144; BP diastolic 58–96
[2019-05-18] MEDS: ONDANSETRON HCL 4MG/2ML INJ IV PRN ×2 (00:04→13:15)
[2019-05-18] MEDS: IPRATROPIUM/ALBUTEROL 0.5-3(2.5)MG/3ML NEB HHN SCH ×7 (00:20→23:41)
[2019-05-18] MEDS: DILTIAZEM HCL 30MG TABLET PO SCH ×3 (00:58→17:51)
[2019-05-18] MEDS: ACETAMINOPHEN 650MG/20.3ML UDC PO SCH ×2 (00:58→05:56)
[2019-05-18] MEDS: DEXT 5%/0.45% NACL 1000ML 1,000 ML IV SCH ×2 (03:15→17:50)
[2019-05-18] MEDS: CEFEPIME 2,000 MG in DEXT 5% WATER 100 ML IV SCH ×2 (04:56→17:50)
[2019-05-18] MEDS: MORPHINE SULFATE 4 MG/ML CPJ (NOT FOR IM USE) IV PRN ×3 (04:57→18:36)
[2019-05-18] MEDS: POLYETHYLENE GLYCOL 3350 (17GM) 1 DOSE PACK PO SCH (08:37)
[2019-05-18] MEDS: OMEPRAZOLE 20MG CAPSULE EXTENDED RELEASE PO SCH (08:37)
[2019-05-18] MEDS: DOCUSATE SODIUM SUGAR FREE 100MG/10ML UDC NG SCH ×2 (08:37→17:49)
[2019-05-18] MEDS: POTASSIUM CHLORIDE 20MEQ TABLET SR PO SCH (08:38)
[2019-05-18] MEDS: NYSTATIN POWDER 15GM TOP SCH ×3 (08:38→17:51)
[2019-05-18] MEDS: FUROSEMIDE 100MG/10ML VIAL IVP SCH ×2 (09:05→17:49)
[2019-05-18 14:28] LABS: HEMATOCRIT. 23.4 % (36.0-48.0); HEMOGLOBIN. 7.4 g/dL (12.0-16.0); MEAN CORPUSCULAR HEMOGLOBIN 26.1 pg (28.0-32.0); MEAN CORPUSCULAR VOLUME 82.9 fL (81.0-99.0); MEAN PLATELET VOLUME 8.8 fl (7.4-10.4); PLATELET 135 x1000/uL (130-400); RED BLOOD CELL COUNT 2.83 mill/uL (4.2-5.4); RED CELL DISTRIBUTION WIDTH 19.9 % (11.6-14.6)
[2019-05-18] MEDS: VANCOMYCIN 1250MG in DEXTROSE 5% WATER 250ML IV SCH (17:50)
[2019-05-18 18:10] LABS: PLATELET ESTIMATE NORMAL
[2019-05-19] VITALS (11 sets, daily range): BP systolic 107–127; BP diastolic 60–84
[2019-05-19] MEDS: DILTIAZEM HCL 30MG TABLET PO SCH ×3 (00:43→17:26)
[2019-05-19] MEDS: MORPHINE SULFATE 4 MG/ML CPJ (NOT FOR IM USE) IV PRN ×5 (02:09→20:32)
[2019-05-19] MEDS: IPRATROPIUM/ALBUTEROL 0.5-3(2.5)MG/3ML NEB HHN SCH ×5 (03:20→19:52)
[2019-05-19] MEDS: DEXT 5%/0.45% NACL 1000ML 1,000 ML IV SCH ×3 (05:01→20:26)
[2019-05-19] MEDS: CEFEPIME 2,000 MG in DEXT 5% WATER 100 ML IV SCH ×2 (05:01→17:25)
[2019-05-19 07:24] LABS: CHLORIDE 97 mEq/L (98-107)
[2019-05-19] MEDS: DOCUSATE SODIUM SUGAR FREE 100MG/10ML UDC NG SCH ×2 (08:17→17:24)
[2019-05-19] MEDS: POTASSIUM CHLORIDE 20MEQ TABLET SR PO SCH (08:18)
[2019-05-19] MEDS: OMEPRAZOLE 20MG CAPSULE EXTENDED RELEASE PO SCH (08:18)
[2019-05-19] MEDS: FUROSEMIDE 100MG/10ML VIAL IVP SCH (08:19)
[2019-05-19] MEDS: POLYETHYLENE GLYCOL 3350 (17GM) 1 DOSE PACK PO SCH (08:19)
[2019-05-19] MEDS: ONDANSETRON HCL 4MG/2ML INJ IV PRN (08:44)
[2019-05-19] MEDS: NYSTATIN POWDER 15GM TOP SCH ×3 (09:49→17:25)
[2019-05-19] MEDS ORDERED: DILT120C51 MT (14:37)
[2019-05-19] MEDS ORDERED: HYDR-4009 MT (14:37)
[2019-05-19] MEDS ORDERED: ONDA4TAB5 MT (14:38)
[2019-05-19] MEDS ORDERED: FURO80TA87 MT (14:38)
[2019-05-19] MEDS: VANCOMYCIN 1250MG in DEXTROSE 5% WATER 250ML IV SCH (17:24)
[2019-05-20] VITALS (14 sets, daily range): BP systolic 99–128; BP diastolic 56–74
[2019-05-20] MEDS: DILTIAZEM HCL 30MG TABLET PO SCH ×3 (00:48→17:40)
[2019-05-20] MEDS: IPRATROPIUM/ALBUTEROL 0.5-3(2.5)MG/3ML NEB HHN SCH ×6 (01:49→20:24)
[2019-05-20] MEDS: MORPHINE SULFATE 4 MG/ML CPJ (NOT FOR IM USE) IV PRN ×3 (04:41→21:29)
[2019-05-20] MEDS: CEFEPIME 2,000 MG in DEXT 5% WATER 100 ML IV SCH ×2 (05:36→17:42)
[2019-05-20 06:48] LABS: CHLORIDE 97 mEq/L (98-107)
[2019-05-20 07:13] LABS: BASOPHILS % 0.7 % (0.0-2.0); EOSINOPHILS % 2.2 % (0.0-5.0); HEMATOCRIT. 22.5 % (36.0-48.0); HEMOGLOBIN. 7.1 g/dL (12.0-16.0); LYMPHOCYTES % 8.6 % (20.0-50.0); MEAN CORPUSCULAR HEMOGLOBIN 26.2 pg (28.0-32.0); MEAN CORPUSCULAR VOLUME 83.1 fL (81.0-99.0); MONOCYTES % 11.3 % (2.0-8.0); NEUTROPHILS % 77.2 % (40.0-76.0); PLATELET 152 x1000/uL (130-400); RED BLOOD CELL COUNT 2.71 mill/uL (4.2-5.4); RED CELL DISTRIBUTION WIDTH 19.9 % (11.6-14.6)
[2019-05-20] MEDS: POLYETHYLENE GLYCOL 3350 (17GM) 1 DOSE PACK PO SCH (09:32)
[2019-05-20] MEDS: POTASSIUM CHLORIDE 20MEQ TABLET SR PO SCH (09:33)
[2019-05-20] MEDS: DOCUSATE SODIUM SUGAR FREE 100MG/10ML UDC NG SCH ×2 (09:33→17:39)
[2019-05-20] MEDS: OMEPRAZOLE 20MG CAPSULE EXTENDED RELEASE PO SCH (09:33)
[2019-05-20] MEDS: NYSTATIN POWDER 15GM TOP SCH ×3 (09:35→17:31)
[2019-05-20] MEDS: DEXT 5%/0.45% NACL 1000ML 1,000 ML IV SCH (09:36)
[2019-05-20] MEDS: ONDANSETRON HCL 4MG/2ML INJ IV PRN (10:10)
[2019-05-20] MEDS ORDERED: FUROSEMIDE 100MG/10ML VIAL IVP NR (13:45)
[2019-05-20] MEDS ORDERED: DIPHENHYDRAMINE 50MG/ML VIAL IV NR (16:45)
[2019-05-20] MEDS: VANCOMYCIN 1250MG in DEXTROSE 5% WATER 250ML IV SCH (19:30)
[2019-05-20] MEDS ORDERED: LORAZEPAM 1MG TABLET GT PRN (20:00)
[2019-05-21] VITALS (13 sets, daily range): BP systolic 92–130; BP diastolic 54–80
[2019-05-21] MEDS: DILTIAZEM HCL 30MG TABLET PO SCH ×3 (00:23→17:58)
[2019-05-21] MEDS: IPRATROPIUM/ALBUTEROL 0.5-3(2.5)MG/3ML NEB HHN SCH ×6 (00:32→21:02)
[2019-05-21] MEDS: MORPHINE SULFATE 4 MG/ML CPJ (NOT FOR IM USE) IV PRN ×4 (01:59→22:17)
[2019-05-21] MEDS: CEFEPIME 2,000 MG in DEXT 5% WATER 100 ML IV SCH ×2 (04:46→17:56)
[2019-05-21 06:51] LABS: BASOPHILS % 0.6 % (0.0-2.0); EOSINOPHILS % 1.9 % (0.0-5.0); HEMATOCRIT. 22.7 % (36.0-48.0); HEMOGLOBIN. 7.2 g/dL (12.0-16.0); LYMPHOCYTES % 9.8 % (20.0-50.0); MEAN CORPUSCULAR HEMOGLOBIN 26.1 pg (28.0-32.0); NEUTROPHILS % 75.7 % (40.0-76.0); PLATELET 174 x1000/uL (130-400); RED BLOOD CELL COUNT 2.77 mill/uL (4.2-5.4); RED CELL DISTRIBUTION WIDTH 19.6 % (11.6-14.6)
[2019-05-21 07:12] LABS: CHLORIDE 97 mEq/L (98-107)
[2019-05-21] MEDS: POTASSIUM CHLORIDE 20MEQ TABLET SR PO SCH (08:30)
[2019-05-21] MEDS: OMEPRAZOLE 20MG CAPSULE EXTENDED RELEASE PO SCH (08:31)
[2019-05-21] MEDS: POLYETHYLENE GLYCOL 3350 (17GM) 1 DOSE PACK PO SCH (08:31)
[2019-05-21] MEDS: DOCUSATE SODIUM SUGAR FREE 100MG/10ML UDC NG SCH ×2 (08:31→17:57)
[2019-05-21] MEDS: NYSTATIN POWDER 15GM TOP SCH ×3 (08:32→17:58)
[2019-05-21] MEDS ORDERED: SORBITOL 70% SOLN 30ML PO NR (09:30)
[2019-05-21] MEDS ORDERED: FUROSEMIDE 40MG/4ML VIAL IVP NR (13:30)
[2019-05-21] MEDS: VANCOMYCIN 1250MG in DEXTROSE 5% WATER 250ML IV SCH (18:46)
[2019-05-22] VITALS (11 sets, daily range): BP systolic 94–128; BP diastolic 42–71
[2019-05-22] MEDS: IPRATROPIUM/ALBUTEROL 0.5-3(2.5)MG/3ML NEB HHN SCH ×4 (00:39→16:40)
[2019-05-22] MEDS: DILTIAZEM HCL 30MG TABLET PO SCH ×3 (01:28→16:56)
[2019-05-22] MEDS: MORPHINE SULFATE 4 MG/ML CPJ (NOT FOR IM USE) IV PRN ×4 (02:15→13:43)
[2019-05-22] MEDS: CEFEPIME 2,000 MG in DEXT 5% WATER 100 ML IV SCH (04:30)
[2019-05-22 07:13] LABS: BASOPHILS % 0.3 % (0.0-2.0); EOSINOPHILS % 2.6 % (0.0-5.0); HEMATOCRIT. 22.5 % (36.0-48.0); HEMOGLOBIN. 7.1 g/dL (12.0-16.0); LYMPHOCYTES % 11.1 % (20.0-50.0); MEAN CORPUSCULAR HEMOGLOBIN 25.8 pg (28.0-32.0); MEAN CORPUSCULAR VOLUME 82.1 fL (81.0-99.0); MEAN PLATELET VOLUME 9.1 fl (7.4-10.4); MONOCYTES % 11.8 % (2.0-8.0); NEUTROPHILS % 74.2 % (40.0-76.0); PLATELET 183 x1000/uL (130-400); RED BLOOD CELL COUNT 2.74 mill/uL (4.2-5.4); RED CELL DISTRIBUTION WIDTH 19.8 % (11.6-14.6)
[2019-05-22 07:31] LABS: CHLORIDE 97 mEq/L (98-107)
[2019-05-22] MEDS: DOCUSATE SODIUM SUGAR FREE 100MG/10ML UDC NG SCH ×3 (09:00→16:17)
[2019-05-22] MEDS: POLYETHYLENE GLYCOL 3350 (17GM) 1 DOSE PACK PO SCH ×2 (09:00→09:12)
[2019-05-22] MEDS: OMEPRAZOLE 20MG CAPSULE EXTENDED RELEASE PO SCH (09:13)
[2019-05-22] MEDS: POTASSIUM CHLORIDE 20MEQ TABLET SR PO SCH (09:13)
[2019-05-22] MEDS: NYSTATIN POWDER 15GM TOP SCH ×3 (09:15→17:13)
[2019-05-22] MEDS ORDERED: EPOETIN ALFA 10000UNITS/ML VIAL SUBCUT SCH (15:30)
== END 2019-05-22 19:57 | DRG 4 ==
LOC: ER 23:24 → 5EST 04-24 02:54 → EDBEDREQSVC 04-24 02:57 → EDBEDREQ 04-24 02:57 → EDBEDREQTM 04-24 02:57 → ENRESERV 04-24 04:07 → 5EST 05-11 17:58
PROVIDERS: ADMIT Internal Medicine; ATTEND Internal Medicine
PROC: 5A09357 Assistance with Respiratory Ventilation, Less than 24 Consecutive Hours, Continuous Positive Airway Pressure (ICD-10-PCS; 2019-04-24)
PROC: 5A09357 Assistance with Respiratory Ventilation, Less than 24 Consecutive Hours, Continuous Positive Airway Pressure (ICD-10-PCS; 2019-04-25)
PROC: 5A09357 Assistance with Respiratory Ventilation, Less than 24 Consecutive Hours, Continuous Positive Airway Pressure (ICD-10-PCS; 2019-04-26)
PROC: 5A09357 Assistance with Respiratory Ventilation, Less than 24 Consecutive Hours, Continuous Positive Airway Pressure (ICD-10-PCS; 2019-04-27)
PROC: 0B9B8ZZ Drainage of Left Lower Lobe Bronchus, Via Natural or Artificial Opening Endoscopic (ICD-10-PCS; 2019-04-27)
PROC: 0B988ZZ Drainage of Left Upper Lobe Bronchus, Via Natural or Artificial Opening Endoscopic (ICD-10-PCS; 2019-04-27)
PROC: 5A09357 Assistance with Respiratory Ventilation, Less than 24 Consecutive Hours, Continuous Positive Airway Pressure (ICD-10-PCS; 2019-04-28)
PROC: 30233N1 Transfusion of Nonautologous Red Blood Cells into Peripheral Vein, Percutaneous Approach (ICD-10-PCS; 2019-04-29)
PROC: 5A09357 Assistance with Respiratory Ventilation, Less than 24 Consecutive Hours, Continuous Positive Airway Pressure (ICD-10-PCS; 2019-04-29)
PROC: 5A09357 Assistance with Respiratory Ventilation, Less than 24 Consecutive Hours, Continuous Positive Airway Pressure (ICD-10-PCS; 2019-04-30)
PROC: 5A09357 Assistance with Respiratory Ventilation, Less than 24 Consecutive Hours, Continuous Positive Airway Pressure (ICD-10-PCS; 2019-05-01)
PROC: 5A09357 Assistance with Respiratory Ventilation, Less than 24 Consecutive Hours, Continuous Positive Airway Pressure (ICD-10-PCS; 2019-05-02)
PROC: 5A09357 Assistance with Respiratory Ventilation, Less than 24 Consecutive Hours, Continuous Positive Airway Pressure (ICD-10-PCS; 2019-05-03)
PROC: 5A09357 Assistance with Respiratory Ventilation, Less than 24 Consecutive Hours, Continuous Positive Airway Pressure (ICD-10-PCS; 2019-05-04)
PROC: 5A09357 Assistance with Respiratory Ventilation, Less than 24 Consecutive Hours, Continuous Positive Airway Pressure (ICD-10-PCS; 2019-05-05)
PROC: 05HY33Z Insertion of Infusion Device into Upper Vein, Percutaneous Approach (ICD-10-PCS; 2019-05-07)
PROC: B54MZZA Ultrasonography of Right Upper Extremity Veins, Guidance (ICD-10-PCS; 2019-05-07)
PROC: 0B110F4 Bypass Trachea to Cutaneous with Tracheostomy Device, Open Approach (ICD-10-PCS; principal; 2019-05-11)
PROC: 5A1955Z Respiratory Ventilation, Greater than 96 Consecutive Hours (ICD-10-PCS; 2019-05-11)
PROC: 0GTJ0ZZ Resection of Thyroid Gland Isthmus, Open Approach (ICD-10-PCS; 2019-05-11)
PROC: 0DH63UZ Insertion of Feeding Device into Stomach, Percutaneous Approach (ICD-10-PCS; 2019-05-13)
DX: J96.21 Acute and chronic respiratory failure with hypoxia (principal); I50.33 Acute on chronic diastolic (congestive) heart failure; E43 Unspecified severe protein-calorie malnutrition; A41.9 Sepsis, unspecified organism; J18.9 Pneumonia, unspecified organism; E87.2 Acidosis; I11.0 Hypertensive heart disease with heart failure; I27.20 Pulmonary hypertension, unspecified; E66.01 Morbid (severe) obesity due to excess calories; J96.22 Acute and chronic respiratory failure with hypercapnia; J44.0 Chronic obstructive pulmonary disease with (acute) lower respiratory infection; I48.1 Persistent atrial fibrillation; R13.10 Dysphagia, unspecified; L03.116 Cellulitis of left lower limb; J98.19 Other pulmonary collapse; Z86.718 Personal history of other venous thrombosis and embolism; E87.6 Hypokalemia; E11.9 Type 2 diabetes mellitus without complications; D50.9 Iron deficiency anemia, unspecified; D75.89 Other specified diseases of blood and blood-forming organs; G47.33 Obstructive sleep apnea (adult) (pediatric); I25.10 Atherosclerotic heart disease of native coronary artery without angina pectoris; E86.0 Dehydration; I48.2 Chronic atrial fibrillation; I49.3 Ventricular premature depolarization; K29.70 Gastritis, unspecified, without bleeding; K59.00 Constipation, unspecified; R47.02 Dysphasia; G89.29 Other chronic pain; Z68.43 Body mass index [BMI] 50.0-59.9, adult; Z79.4 Long term (current) use of insulin; Z79.899 Other long term (current) drug therapy; Z87.891 Personal history of nicotine dependence; Z88.0 Allergy status to penicillin; Z93.1 Gastrostomy status; Z95.828 Presence of other vascular implants and grafts; Z99.81 Dependence on supplemental oxygen; Z88.8 Allergy status to other drugs, medicaments and biological substances; Z71.89 Other specified counseling; T17.990A Other foreign object in respiratory tract, part unspecified in causing asphyxiation, initial encounter; X58.XXXA Exposure to other specified factors, initial encounter; Y93.89 Activity, other specified; Y92.89 Other specified places as the place of occurrence of the external cause; Y99.8 Other external cause status
CPT/HCPCS: 36415; 36569; 36600; 71045; 71250; 71275; 76705; 76937; 80048; 80202; 82375; 82805; 83605; 83735; 83880; 84145; 84484; 85014; 85018; 85027; 85384; 86078; 86850; 86900; 86920; 87106; 92950; 93005; 93970; 94002; 94003; 94640; 94660; 94667; 96374; 96375; 97162; 99285; A6261; C1725; J0330; J0690; J0692; J0885; J1200; J1650; J1940; J2250; J2270; J2370; J2405; J2543; J2704; J2710; J3010; J3370; J3480; J3490; J7050; J7060; J7608; J7620; P9016; Q9967; A4315